=== PATIENT | male | born 1960 | race African-American/Black ===

== ENCOUNTER 2016-07-10 16:21 | Inpatient (IN) | payer OTHER ==
[~2016-07-10] VITALS: Ht 208.3 cm; Wt 132.4 kg
[2016-07-10 16:35] VITALS: BP 128/78
[2016-07-10] MEDS ORDERED: DuoNeb 0.5-3(2.5)mg/3ml neb HHN ONE (17:00)
[2016-07-10 18:21] VITALS: BP 122/76
[2016-07-10 18:29] LABS: BASOPHILS % (AUTO) 1.6 % (0.0-2.0); EOSINOPHILS % (AUTO) 0.1 % (0.0-3.0); LYMPHOCYTES % (AUTO) 8.1 % (20.0-45.0); MEAN CORPUSCULAR HEMOGLOBIN 28.8 PG (27.0-31.0); MEAN CORPUSCULAR HGB CONC 32.4 G/DL (32.0-36.0); MEAN CORPUSCULAR VOLUME 89 FL (80-99); MEAN PLATELET VOLUME 10.4 FL (6.5-10.1); MONOCYTES % (AUTO) 7.8 % (1.0-10.0); NEUTROPHILS % (AUTO) 82.4 % (45.0-75.0); PLATELET COUNT 144 K/UL (150-450); RED BLOOD COUNT 5.52 M/UL (4.70-6.10); RED CELL DISTRIBUTION WIDTH 12.4 % (11.6-14.8); WHITE BLOOD COUNT 14.8 K/UL (4.8-10.8)
[2016-07-10 18:42] LABS: ALBUMIN/GLOBULIN RATIO 0.8 (1.0-2.7); CALCIUM 7.9 mg/dL (8.6-10.2); CREATININE 1.9 mg/dL (0.7-1.2); MAGNESIUM 2.5 mg/dL (1.7-2.5); PHOSPHORUS 1.5 mg/dL (2.5-4.8); POTASSIUM 3.5 mEQ/L (3.4-4.9); TOTAL PROTEIN 7.3 g/dL (6.6-8.7); TROPONIN I < 0.30 ng/mL (<=0.30)
[2016-07-10] MEDS ORDERED: cefTRIAXone 1 GM in NS 55 ML IVPB ONE (18:45)
[2016-07-10] MEDS ORDERED: Azithromycin 500 MG in D5W 275 ML IVPB ONE (18:45)
[2016-07-10 18:53] LABS: CKMB 3.7 ng/mL (< 6.7)
[2016-07-10] MEDS ORDERED: Azithromycin Inj IV ONE (19:07)
[2016-07-10] MEDS: cefTRIAXone 1 GM in D5W 55 ML IVPB ONE ×2 (19:45→20:34)
[2016-07-10] MEDS ORDERED: AMLODIPINE BESY10 MG ORAL (19:50)
[2016-07-10] MEDS ORDERED: Miralax 17gm pkt ORAL PRN (20:45)
[2016-07-10] MEDS ORDERED: DuoNeb 0.5-3(2.5)mg/3ml neb HHN PRN (20:45)
[2016-07-10] MEDS ORDERED: Mylanta II UD 30ml ORAL PRN (20:45)
[2016-07-10] MEDS ORDERED: Promethazine/Codeine 5ml UD ORAL PRN (20:45)
[2016-07-10] MEDS ORDERED: Nitroglycerin Subl 0.4mg tab (Bottle Of 25) SL PRN (20:45)
[2016-07-10 20:47] VITALS: BP 115/74
--- NOTE | 2016-07-10 20:59 | Infectious Diseases Prog Note ---
Assessment/Plan Problems: (1) CAP (community acquired pneumonia) Assessment & Plan: will start zosyn and vancomycin empirically, send influenza screening, blood culture and sputum culture (2) Sepsis Assessment & Plan: due to pneumonia, will start zosyn and vancomycin , send blood culture (3) Asthma Assessment & Plan: continue nebulizers and titrate oxygen to keep O2 sat >90 % (4) Acute respiratory failure Assessment & Plan: due to the above, continue nebulizers, and oxygen , monitor CXR, pulmonary is following (5) Elevated LFTs Assessment & Plan: suspect liver shock, will order hepatitis panel, monitor LFT , avoid hepatotoxic meds Subjective Allergies: Coded Allergies: No Known Allergies (Unverified , 07/10/16) Objective Vital Signs Last 24 Hour Vital Signs Date Time Temp Pulse Resp B/P Pulse Ox O2 Delivery O2 Flow Rate FiO2 07/10/16 18:21 99.4 115 15 122/76 96 Nasal Cannula 2.0 07/10/16 18:02 102.1 07/10/16 17:45 116 22 100 Room Air 21 07/10/16 17:32 115 23 Room Air 21 07/10/16 17:32 115 23 97 Room Air 21 07/10/16 16:35 118 22 Room Air 07/10/16 16:35 99.9 115 22 128/78 95 Room Air 07/10/16 16:26 118 22 128/78 95 Room Air Height (Feet): 6 Height (Inches): 6.00 Weight (Pounds): 300 Laboratory Tests Test 07/10/16 17:50 White Blood Count 14.8 K/UL (4.8-10.8) H Red Blood Count 5.52 M/UL (4.70-6.10) Hemoglobin 15.9 G/DL (14.2-18.0) Hematocrit 49.1 % (42.0-52.0) Mean Corpuscular Volume 89 FL (80-99) Mean Corpuscular Hemoglobin 28.8 PG (27.0-31.0) Mean Corpuscular Hemoglobin Concent 32.4 G/DL (32.0-36.0) Red Cell Distribution Width 12.4 % (11.6-14.8) Platelet Count 144 K/UL (150-450) L Mean Platelet Volume 10.4 FL (6.5-10.1) H Neutrophils (%) (Auto) 82.4 % (45.0-75.0) H Lymphocytes (%) (Auto) 8.1 % (20.0-45.0) L Monocytes (%) (Auto) 7.8 % (1.0-10.0) Eosinophils (%) (Auto) 0.1 % (0.0-3.0) Basophils (%) (Auto) 1.6 % (0.0-2.0) Sodium Level 136 mEQ/L (135-145) Potassium Level 3.5 mEQ/L (3.4-4.9) Chloride Level 94 mEQ/L (98-107) L Carbon Dioxide Level 23 mEQ/L (20-30) Anion Gap 19 (5-15) H Blood Urea Nitrogen 34 mg/dL (7-23) H Creatinine 1.9 mg/dL (0.7-1.2) H Estimat Glomerular Filtration Rate 45.0 mL/min (>60) Glucose Level 145 mg/dL (74-106) H Lactic Acid Level 1.20 mmol/L (0.66-2.22) Calcium Level 7.9 mg/dL (8.6-10.2) L Phosphorus Level 1.5 mg/dL (2.5-4.8) L Magnesium Level 2.5 mg/dL (1.7-2.5) Total Bilirubin 0.8 mg/dL (0.0-1.2) Aspartate Amino Transf (AST/SGOT) 130 U/L (5-40) H Alanine Aminotransferase (ALT/SGPT) 117 U/L (3-41) H Alkaline Phosphatase 54 U/L (40-129) Total Creatine Kinase 1969 U/L (38-174) H Creatine Kinase MB 3.7 ng/mL (< 6.7) Creatine Kinase MB Relative Index 0.1 Troponin I < 0.30 ng/mL (<=0.30) Total Protein 7.3 g/dL (6.6-8.7) Albumin 3.3 g/dL (3.5-5.2) L Globulin 4.0 g/dL Albumin/Globulin Ratio 0.8 (1.0-2.7) L Current Medications Medications (Trade) Dose Ordered Sig/Brad Route PRN Reason Start Time Stop Time Status Last Admin Dose Admin Acetaminophen (Tylenol) 650 mg Q4H PRN ORAL fever 07/10/16 20:45 08/09/16 20:44 UNV Al Hydroxide/Mg Hydroxide (Mylanta II) 30 ml Q6H PRN ORAL dyspepsia 07/10/16 20:45 08/09/16 20:44 UNV Albuterol/ Ipratropium 3 ml 3 ml EVERY 4 HOURS PRN HHN Shortness of Breath 07/10/16 20:45 07/15/16 20:44 UNV Amlodipine Besylate (Norvasc) 10 mg DAILY ORAL 07/11/16 09:00 08/10/16 08:59 UNV Cefepime HCl/ Dextrose (Maxipime/D5W) 50 ml @ 100 mls/hr EVERY 12 HOURS IV 07/10/16 21:00 07/17/16 20:59 UNV Heparin Sodium (Porcine) (Heparin 5000 units/ml) 5,000 units EVERY 12 HOURS SUBQ 07/10/16 21:00 08/09/16 20:59 UNV Nitroglycerin (Ntg) 0.4 mg Q5M PRN SL Prn Chest Pain 07/10/16 20:45 08/09/16 20:44 UNV Ondansetron HCl (Zofran) 4 mg Q6H PRN IVP Nausea & Vomiting 07/10/16 20:45 08/09/16 20:44 UNV Polyethylene Glycol (Miralax) 17 gm DAILYPRN PRN ORAL Constipation 07/10/16 20:45 08/09/16 20:44 UNV Promethazine HCl/ Codeine (Phenergan with Codeine) 5 ml Q4H PRN ORAL For Cough 07/10/16 20:45 08/09/16 20:44 UNV Temazepam (Restoril) 15 mg HSPRN PRN ORAL Insomnia 07/10/16 20:45 07/17/16 20:44 UNV Cammy Garcia M.D. Jul 10, 2016 20:59
[2016-07-10 21:51] VITALS: BP 98/56
[2016-07-10] MEDS: Heparin 5000 units/ml inj SUBQ SCH (23:15)
[2016-07-10] MEDS: Piperacillin/Tazobactam 3.375 GM in D5W 110 ML IVPB SCH (23:16)
[2016-07-11] VITALS: BP 111/70
[2016-07-11] MEDS: Vancomycin 2 GM in D5W 500ml 550 ML IVPB ONE ×2
--- NOTE | 2016-07-11 00:07 | Emergency Room Report ---
History of Present Illness General Chief Complaint: Dyspnea/Respdistress Source: Patient Present Illness HPI Patient is a patient is a 56-year-old male who presented after having increased cough and difficulty breathing. Patient gradual onset of symptoms. Patient prior history of sleep apnea. Patient was noted to have subjective fever and chills. A gradual onset of symptoms or the past 2 days. Patient reported having some chest pain and productive cough. He had not been vomiting or having diarrhea.He reports feeling moderately dehydrated. Allergies: Coded Allergies: No Known Allergies (Unverified , 07/10/16) Patient History Past Medical History: see triage record Reviewed Nursing Documentation: PMH: Agreed, PSxH: Agreed Nursing Documentation-PMH Past Medical History: No History, Except For Hx Cardiac Problems: Yes Hx Hypertension: Yes Hx Asthma: Yes Hx Cancer: No Hx Gastrointestinal Problems: No Hx Neurological Problems: No Review of Systems All Other Systems: negative except mentioned in HPI Physical Exam Vital Signs Date Time Temp Pulse Resp B/P Pulse Ox O2 Delivery O2 Flow Rate FiO2 07/10/16 16:26 118 22 128/78 95 Room Air 07/10/16 16:35 99.9 07/10/16 17:32 21 07/10/16 18:21 2.0 Sp02 EP Interpretation: reviewed, normal General Appearance: normal inspection, alert, GCS 15, moderate distress Head: atraumatic ENT: normal ENT inspection, hearing grossly normal, normal voice Neck: normal inspection, full range of motion, supple, no bony tend Respiratory: normal inspection, no retraction, no wheezing, rhonchi Cardiovascular #1: no edema, tachycardia Gastrointestinal: normal inspection, normal bowel sounds, non tender, soft, no guarding, no hernia Genitourinary: no CVA tenderness Musculoskeletal: normal inspection, back normal, normal range of motion Neurologic: normal inspection, alert, oriented x3, responsive, 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 Differential included but was not limited to anemia, pneumonia, pneumothorax, myocardial infarction, pericardial effusion, congestive heart failure, acidosis. Because of complexity of patient' s case laboratory testing and imaging studies were ordered. A chest x-ray one view interpreted by me showed prominent infiltrate with normal cardiac size. Patient started on IV antibiotics as well as IV fluids and antipyretics. The patient was noted to have elevated CPK on elevated white blood count on laboratory testing. As consistent with the patient's having a pneumonia. Dr. Jamel Vernon was contacted for inpatient management. Laboratory Tests Test 07/10/16 17:50 White Blood Count 14.8 K/UL (4.8-10.8) H Red Blood Count 5.52 M/UL (4.70-6.10) Hemoglobin 15.9 G/DL (14.2-18.0) Hematocrit 49.1 % (42.0-52.0) Mean Corpuscular Volume 89 FL (80-99) Mean Corpuscular Hemoglobin 28.8 PG (27.0-31.0) Mean Corpuscular Hemoglobin Concent 32.4 G/DL (32.0-36.0) Red Cell Distribution Width 12.4 % (11.6-14.8) Platelet Count 144 K/UL (150-450) L Mean Platelet Volume 10.4 FL (6.5-10.1) H Neutrophils (%) (Auto) 82.4 % (45.0-75.0) H Lymphocytes (%) (Auto) 8.1 % (20.0-45.0) L Monocytes (%) (Auto) 7.8 % (1.0-10.0) Eosinophils (%) (Auto) 0.1 % (0.0-3.0) Basophils (%) (Auto) 1.6 % (0.0-2.0) Sodium Level 136 mEQ/L (135-145) Potassium Level 3.5 mEQ/L (3.4-4.9) Chloride Level 94 mEQ/L (98-107) L Carbon Dioxide Level 23 mEQ/L (20-30) Anion Gap 19 (5-15) H Blood Urea Nitrogen 34 mg/dL (7-23) H Creatinine 1.9 mg/dL (0.7-1.2) H Estimate Glomerular Filtration Rate 45.0 mL/min (>60) Glucose Level 145 mg/dL (74-106) H Lactic Acid Level 1.20 mmol/L (0.66-2.22) Calcium Level 7.9 mg/dL (8.6-10.2) L Phosphorus Level 1.5 mg/dL (2.5-4.8) L Magnesium Level 2.5 mg/dL (1.7-2.5) Total Bilirubin 0.8 mg/dL (0.0-1.2) Aspartate Amino Transferase (AST) 130 U/L (5-40) H Alanine Aminotransferase (ALT) 117 U/L (3-41) H Alkaline Phosphatase 54 U/L (40-129) Total Creatine Kinase 1969 U/L (38-174) H Creatine Kinase MB 3.7 ng/mL (< 6.7) Creatine Kinase MB Relative Index 0.1 Troponin I < 0.30 ng/mL (<=0.30) Total Protein 7.3 g/dL (6.6-8.7) Albumin 3.3 g/dL (3.5-5.2) L Globulin 4.0 g/dL Albumin/Globulin Ratio 0.8 (1.0-2.7) L Last Vital Signs Date Time Temp Pulse Resp B/P Pulse Ox O2 Delivery O2 Flow Rate FiO2 07/10/16 21:51 93 20 98/56 97 Room Air 07/10/16 20:57 99.4 2.0 21 Status: unchanged Disposition: ADMITTED INPATIENT Condition: Serious Referrals: [facility],REFERRING (PCP) José Miguel Griffith Jul 11, 2016 00:07
[2016-07-11 04:30] VITALS: BP 115/76
[2016-07-11] MEDS: Piperacillin/Tazobactam 3.375 GM in D5W 110 ML IVPB SCH ×3 (05:58→21:33)
[2016-07-11 08:09] VITALS: BP 124/78
[2016-07-11 08:24] LABS: MEAN CORPUSCULAR VOLUME 88 FL (80-99); MEAN PLATELET VOLUME 11.3 FL (6.5-10.1); PLATELET COUNT 131 K/UL (150-450); RED BLOOD COUNT 5.07 M/UL (4.70-6.10); RED CELL DISTRIBUTION WIDTH 12.3 % (11.6-14.8); WHITE BLOOD COUNT 12.8 K/UL (4.8-10.8)
[2016-07-11 08:37] LABS: CALCIUM 7.7 mg/dL (8.6-10.2); CREATININE 1.8 mg/dL (0.7-1.2); GLOMERULAR FILTRATION RATE 47.9 mL/min (>60); PHOSPHORUS 2.2 mg/dL (2.5-4.8); POTASSIUM 3.6 mEQ/L (3.4-4.9)
[2016-07-11] MEDS: Heparin 5000 units/ml inj SUBQ SCH ×2 (09:00→21:32)
[2016-07-11 09:35] LABS: BAND NEUTROPHILS % (MANUAL) 12 % (0-8); EOSINOPHILS % (MANUAL) 1 % (0-3); LYMPHOCYTES % (MANUAL) 4 % (20-45); NEUTROPHILS % (MANUAL) 77 % (45-75); TOTAL CELLS COUNTED 100
[2016-07-11 09:36] LABS: BASOPHILS % (MANUAL) 0 % (0-2); PLATELET ESTIMATE DECREASED; PLATELET MORPHOLOGY NORMAL
[2016-07-11 11:37] VITALS: BP 125/78
--- NOTE | 2016-07-11 11:39 | Diagnostic Imaging Report ---
Indication: Dyspnea Comparison: None A single view chest radiograph was obtained. Findings: Dense left Infiltrate is present in the left perihilar region. Pneumonia suspected. Please correlate clinically. Followup is also recommended. Left lung base not seen and a second infiltrate may be present in this location. Borderline cardiomegaly is present. Bones are unremarkable. Impression: Suspected pneumonia in the left lung. Followup is recommended
[2016-07-11] MEDS: Vancomycin 1gm/D5W 275ml IVPB SCH ×2 (12:50)
[2016-07-11 14:39] LABS: PATH BLOOD SMEAR/OMC SENT TO PATHOLOGIST
--- NOTE | 2016-07-11 15:50 | Consultation ---
History of Present Illness General Date patient seen: Jul 11, 2016 Chief Complaint: Dyspnea/Respdistress Referring physician: Dr Vernon Reason for Consultation: dyspnea Present Illness HPI 56-year-old male with hx of HTN, ex-smoker, MARIA FERNANDA who presented after having increased cough and difficulty breathing. Patient gradual onset of symptoms for the past 2 days. Pt was so week so he couldn't get out of bed and walk, he blamed all of his symptoms to a bad cold. He was diagnosed to have extensive pneumonia and admitted for further work up. No recent sick contact or travel our of area. Allergies: Coded Allergies: No Known Allergies (Unverified , 07/10/16) Medication History Scheduled Amlodipine Besylate* (Amlodipine Besylate*), 10 MG ORAL DAILY, (Reported) Patient History Healthcare decision maker n/a Resuscitation status Full Code Advanced Directive on File No Past Medical/Surgical History Past Medical/Surgical History: (1) HTN (hypertension) (2) MARIA FERNANDA (obstructive sleep apnea) Review of Systems Constitutional: Reports: malaise, weakness Respiratory: Reports: shortness of breath Physical Exam General Appearance: WD/WN Lines, tubes and drains: peripheral, central line HEENT: normocephalic, atraumatic Neck: non-tender, normal alignment Respiratory/Chest: chest wall non-tender, lungs clear Breasts: no masses Cardiovascular/Chest: normal peripheral pulses Abdomen: normal bowel sounds, non tender Genitourinary/Rectal: normal genital exam Extremities: normal range of motion Last 24 Hour Vital Signs Date Time Temp Pulse Resp B/P Pulse Ox O2 Delivery O2 Flow Rate FiO2 07/11/16 12:00 95 07/11/16 11:37 96.8 94 20 125/78 98 Nasal Cannula 2.0 07/11/16 09:03 102 124/78 07/11/16 08:09 97.1 102 20 124/78 95 Nasal Cannula 2.0 07/11/16 08:06 2.0 07/11/16 08:00 100 07/11/16 05:00 98.0 07/11/16 04:30 100.0 100 20 115/76 94 Bi-pap 07/11/16 04:24 97 2.0 28 07/11/16 03:48 101 07/11/16 00:40 90 18 98 Facial 40 07/11/16 00:04 94 07/11/16 00:00 98.0 91 20 111/70 98 Bi-pap 07/10/16 21:51 93 20 98/56 97 Room Air 07/10/16 20:57 99.4 93 17 115/74 96 Nasal Cannula 2.0 21 07/10/16 20:47 99.4 93 17 115/74 96 Nasal Cannula 2.0 21 07/10/16 18:21 99.4 115 15 122/76 96 Nasal Cannula 2.0 07/10/16 18:02 102.1 07/10/16 17:45 116 22 100 Room Air 21 07/10/16 17:32 115 23 Room Air 21 07/10/16 17:32 115 23 97 Room Air 21 07/10/16 16:35 118 22 Room Air 07/10/16 16:35 99.9 115 22 128/78 95 Room Air 07/10/16 16:26 118 22 128/78 95 Room Air Intake and Output 07/10/16 07/11/16 19:00 07:00 Intake Total 817.5 ml Balance 817.5 ml Intake Oral 80 ml IV Total 737.5 ml # Voids 1 # Bowel Movements 1 Laboratory Tests Test 07/10/16 17:50 07/11/16 07:10 White Blood Count 14.8 K/UL (4.8-10.8) H 12.8 K/UL (4.8-10.8) H Red Blood Count 5.52 M/UL (4.70-6.10) 5.07 M/UL (4.70-6.10) Hemoglobin 15.9 G/DL (14.2-18.0) 14.7 G/DL (14.2-18.0) Hematocrit 49.1 % (42.0-52.0) 44.6 % (42.0-52.0) Mean Corpuscular Volume 89 FL (80-99) 88 FL (80-99) Mean Corpuscular Hemoglobin 28.8 PG (27.0-31.0) 29.0 PG (27.0-31.0) Mean Corpuscular Hemoglobin Concent 32.4 G/DL (32.0-36.0) 33.0 G/DL (32.0-36.0) Red Cell Distribution Width 12.4 % (11.6-14.8) 12.3 % (11.6-14.8) Platelet Count 144 K/UL (150-450) L 131 K/UL (150-450) L Mean Platelet Volume 10.4 FL (6.5-10.1) H 11.3 FL (6.5-10.1) H Neutrophils (%) (Auto) 82.4 % (45.0-75.0) H % (45.0-75.0) Lymphocytes (%) (Auto) 8.1 % (20.0-45.0) L % (20.0-45.0) Monocytes (%) (Auto) 7.8 % (1.0-10.0) % (1.0-10.0) Eosinophils (%) (Auto) 0.1 % (0.0-3.0) % (0.0-3.0) Basophils (%) (Auto) 1.6 % (0.0-2.0) % (0.0-2.0) Sodium Level 136 mEQ/L (135-145) 139 mEQ/L (135-145) Potassium Level 3.5 mEQ/L (3.4-4.9) 3.6 mEQ/L (3.4-4.9) Chloride Level 94 mEQ/L (98-107) L 97 mEQ/L (98-107) L Carbon Dioxide Level 23 mEQ/L (20-30) 27 mEQ/L (20-30) Anion Gap 19 (5-15) H 15 (5-15) Blood Urea Nitrogen 34 mg/dL (7-23) H 35 mg/dL (7-23) H Creatinine 1.9 mg/dL (0.7-1.2) H 1.8 mg/dL (0.7-1.2) H Estimat Glomerular Filtration Rate 45.0 mL/min (>60) 47.9 mL/min (>60) Glucose Level 145 mg/dL (74-106) H 120 mg/dL (74-106) H Lactic Acid Level 1.20 mmol/L (0.66-2.22) Calcium Level 7.9 mg/dL (8.6-10.2) L 7.7 mg/dL (8.6-10.2) L Phosphorus Level 1.5 mg/dL (2.5-4.8) L 2.2 mg/dL (2.5-4.8) L Magnesium Level 2.5 mg/dL (1.7-2.5) Total Bilirubin 0.8 mg/dL (0.0-1.2) Aspartate Amino Transf (AST/SGOT) 130 U/L (5-40) H Alanine Aminotransferase (ALT/SGPT) 117 U/L (3-41) H Alkaline Phosphatase 54 U/L (40-129) Total Creatine Kinase 1969 U/L (38-174) H Creatine Kinase MB 3.7 ng/mL (< 6.7) Creatine Kinase MB Relative Index 0.1 Troponin I < 0.30 ng/mL (<=0.30) Total Protein 7.3 g/dL (6.6-8.7) Albumin 3.3 g/dL (3.5-5.2) L 3.0 g/dL (3.5-5.2) L Globulin 4.0 g/dL Albumin/Globulin Ratio 0.8 (1.0-2.7) L Differential Total Cells Counted 100 Neutrophils % (Manual) 77 % (45-75) H Lymphocytes % (Manual) 4 % (20-45) L Monocytes % (Manual) 6 % (1-10) Eosinophils % (Manual) 1 % (0-3) Basophils % (Manual) 0 % (0-2) Band Neutrophils 12 % (0-8) H Platelet Estimate Decreased L Platelet Morphology Normal Red Blood Cell Morphology Normal Hepatitis A Antibody Total Pending Hepatitis B Surface Antigen Pending Hepatitis B Core IgM Antibody Pending Hepatitis C Antibody Pending Microbiology Date/Time Source Procedure Growth Status 07/11/16 09:30 Nasopharynx Influenza Types A,B Antigen (KYLE) - Final Complete Height (Feet): 6 Height (Inches): 10.00 Weight (Pounds): 292 Medications Current Medications Medications (Trade) Dose Ordered Sig/Brad Route PRN Reason Start Time Stop Time Status Last Admin Dose Admin Acetaminophen (Tylenol) 650 mg Q4H PRN ORAL fever 07/10/16 20:45 08/09/16 20:44 Al Hydroxide/Mg Hydroxide (Mylanta II) 30 ml Q6H PRN ORAL dyspepsia 07/10/16 20:45 08/09/16 20:44 07/11/16 01:04 Albuterol/ Ipratropium (DuoNeb 0.5-3(2.5)mg/3ml) 3 ml EVERY 4 HOURS PRN HHN Shortness of Breath 07/10/16 20:45 07/15/16 20:44 Amlodipine Besylate (Norvasc) 10 mg DAILY ORAL 07/11/16 09:00 08/10/16 08:59 07/11/16 09:03 Heparin Sodium (Porcine) (Heparin 5000 units/ml) 5,000 units EVERY 12 HOURS SUBQ 07/10/16 22:00 08/09/16 21:59 07/10/16 23:15 Nitroglycerin (Ntg) 0.4 mg Q5M PRN SL Prn Chest Pain 07/10/16 20:45 08/09/16 20:44 Ondansetron HCl (Zofran) 4 mg Q6H PRN IVP Nausea & Vomiting 07/10/16 20:45 08/09/16 20:44 Piperacillin Sod/ Tazobactam Sod 3.375 gm/Dextrose 110 ml @ 27.5 mls/hr EVERY 8 HOURS IVPB 07/10/16 22:30 07/15/16 22:29 07/11/16 14:36 Polyethylene Glycol (Miralax) 17 gm DAILYPRN PRN ORAL Constipation 07/10/16 20:45 08/09/16 20:44 Promethazine HCl/ Codeine 5 ml 5 ml Q4H PRN ORAL For Cough 07/10/16 20:45 08/09/16 20:44 Temazepam (Restoril) 15 mg HSPRN PRN ORAL Insomnia 07/10/16 20:45 07/17/16 20:44 Vancomycin HCl (Vanco rx to dose) 1 ea DAILY PRN MISC . 07/10/16 21:15 08/09/16 21:14 Vancomycin HCl/ Dextrose (Vancomycin/D5W) 275 ml @ 183.708 mls/hr Q12HR@0000,1200 IVPB 07/11/16 12:00 07/16/16 11:59 07/11/16 12:50 Assessment/Plan Problem List: (1) Acute respiratory failure ICD Codes: J96.00 - Acute respiratory failure, unspecified whether with hypoxia or hypercapnia SNOMED: 58279245 (2) Pneumonia ICD Codes: J18.9 - Pneumonia, unspecified organism SNOMED: 407000132 (3) Sepsis ICD Codes: A41.9 - Sepsis, unspecified organism SNOMED: 63112318 (4) ATN (acute tubular necrosis) ICD Codes: N17.0 - Acute kidney failure with tubular necrosis SNOMED: 05014731 (5) Elevated LFTs ICD Codes: R94.5 - Abnormal results of liver function studies SNOMED: 435354864 Assessment/Plan IV antibiotics respiratory treatment chest pt ct of chest, fairly extensive infiltrate. renal work/up bipap prn and at night BRINA BRAGG Jul 11, 2016 15:50
[2016-07-11 16:00] VITALS: BP 127/77
--- NOTE | 2016-07-11 16:54 | Infectious Diseases Prog Note ---
Assessment/Plan Problems: (1) CAP (community acquired pneumonia) Assessment & Plan: continue zosyn and vancomycin empirically for now, influenza screening is negative , blood culture and sputum culture are pending (2) Sepsis Assessment & Plan: due to pneumonia, continue zosyn and vancomycin , await blood culture (3) Asthma Assessment & Plan: continue nebulizers and titrate oxygen to keep O2 sat >90 % (4) Acute respiratory failure Assessment & Plan: due to the above, continue nebulizers, and oxygen , monitor CXR, pulmonary is following (5) Elevated LFTs Assessment & Plan: suspect liver shock, hepatitis panel is pending , monitor LFT, avoid hepatotoxic meds Subjective Constitutional: Reports: fatigue Respiratory: Reports: dry cough Allergies: Coded Allergies: No Known Allergies (Unverified , 07/10/16) All Systems: reviewed and negative except above Subjective feels better, has less cough and SOB, no fever or chills. Objective Vital Signs Last 24 Hour Vital Signs Date Time Temp Pulse Resp B/P Pulse Ox O2 Delivery O2 Flow Rate FiO2 07/11/16 16:00 98.2 98 22 127/77 94 Nasal Cannula 2.0 07/11/16 12:00 95 07/11/16 11:37 96.8 94 20 125/78 98 Nasal Cannula 2.0 07/11/16 09:03 102 124/78 07/11/16 08:09 97.1 102 20 124/78 95 Nasal Cannula 2.0 07/11/16 08:06 2.0 07/11/16 08:00 100 07/11/16 05:00 98.0 07/11/16 04:30 100.0 100 20 115/76 94 Bi-pap 07/11/16 04:24 97 2.0 28 07/11/16 03:48 101 07/11/16 00:40 90 18 98 Facial 40 07/11/16 00:04 94 07/11/16 00:00 98.0 91 20 111/70 98 Bi-pap 07/10/16 21:51 93 20 98/56 97 Room Air 07/10/16 20:57 99.4 93 17 115/74 96 Nasal Cannula 2.0 21 07/10/16 20:47 99.4 93 17 115/74 96 Nasal Cannula 2.0 21 07/10/16 18:21 99.4 115 15 122/76 96 Nasal Cannula 2.0 07/10/16 18:02 102.1 07/10/16 17:45 116 22 100 Room Air 21 07/10/16 17:32 115 23 Room Air 21 07/10/16 17:32 115 23 97 Room Air 21 Height (Feet): 6 Height (Inches): 10.00 Weight (Pounds): 292 General Appearance: WD/WN, no acute distress HEENT: normocephalic, atraumatic, anicteric, mucous membranes moist Respiratory/Chest: chest wall non-tender, normal breath sounds, no respiratory distress, no accessory muscle use, decreased breath sounds, crackles/rales Cardiovascular: normal peripheral pulses, normal rate, regular rhythm, no gallop/murmur Abdomen: normal bowel sounds, soft, non tender, no organomegaly, non distended , no mass Extremities: no cyanosis, no clubbing Skin: no rash, no lesions, no ulcers Microbiology Date/Time Source Procedure Growth Status 07/11/16 09:30 Nasopharynx Influenza Types A,B Antigen (KLYE) - Final Complete Laboratory Tests Test 07/10/16 17:50 07/11/16 07:10 White Blood Count 14.8 K/UL (4.8-10.8) H 12.8 K/UL (4.8-10.8) H Red Blood Count 5.52 M/UL (4.70-6.10) 5.07 M/UL (4.70-6.10) Hemoglobin 15.9 G/DL (14.2-18.0) 14.7 G/DL (14.2-18.0) Hematocrit 49.1 % (42.0-52.0) 44.6 % (42.0-52.0) Mean Corpuscular Volume 89 FL (80-99) 88 FL (80-99) Mean Corpuscular Hemoglobin 28.8 PG (27.0-31.0) 29.0 PG (27.0-31.0) Mean Corpuscular Hemoglobin Concent 32.4 G/DL (32.0-36.0) 33.0 G/DL (32.0-36.0) Red Cell Distribution Width 12.4 % (11.6-14.8) 12.3 % (11.6-14.8) Platelet Count 144 K/UL (150-450) L 131 K/UL (150-450) L Mean Platelet Volume 10.4 FL (6.5-10.1) H 11.3 FL (6.5-10.1) H Neutrophils (%) (Auto) 82.4 % (45.0-75.0) H % (45.0-75.0) Lymphocytes (%) (Auto) 8.1 % (20.0-45.0) L % (20.0-45.0) Monocytes (%) (Auto) 7.8 % (1.0-10.0) % (1.0-10.0) Eosinophils (%) (Auto) 0.1 % (0.0-3.0) % (0.0-3.0) Basophils (%) (Auto) 1.6 % (0.0-2.0) % (0.0-2.0) Sodium Level 136 mEQ/L (135-145) 139 mEQ/L (135-145) Potassium Level 3.5 mEQ/L (3.4-4.9) 3.6 mEQ/L (3.4-4.9) Chloride Level 94 mEQ/L (98-107) L 97 mEQ/L (98-107) L Carbon Dioxide Level 23 mEQ/L (20-30) 27 mEQ/L (20-30) Anion Gap 19 (5-15) H 15 (5-15) Blood Urea Nitrogen 34 mg/dL (7-23) H 35 mg/dL (7-23) H Creatinine 1.9 mg/dL (0.7-1.2) H 1.8 mg/dL (0.7-1.2) H Estimat Glomerular Filtration Rate 45.0 mL/min (>60) 47.9 mL/min (>60) Glucose Level 145 mg/dL (74-106) H 120 mg/dL (74-106) H Lactic Acid Level 1.20 mmol/L (0.66-2.22) Calcium Level 7.9 mg/dL (8.6-10.2) L 7.7 mg/dL (8.6-10.2) L Phosphorus Level 1.5 mg/dL (2.5-4.8) L 2.2 mg/dL (2.5-4.8) L Magnesium Level 2.5 mg/dL (1.7-2.5) Total Bilirubin 0.8 mg/dL (0.0-1.2) Aspartate Amino Transf (AST/SGOT) 130 U/L (5-40) H Alanine Aminotransferase (ALT/SGPT) 117 U/L (3-41) H Alkaline Phosphatase 54 U/L (40-129) Total Creatine Kinase 1969 U/L (38-174) H Creatine Kinase MB 3.7 ng/mL (< 6.7) Creatine Kinase MB Relative Index 0.1 Troponin I < 0.30 ng/mL (<=0.30) Total Protein 7.3 g/dL (6.6-8.7) Albumin 3.3 g/dL (3.5-5.2) L 3.0 g/dL (3.5-5.2) L Globulin 4.0 g/dL Albumin/Globulin Ratio 0.8 (1.0-2.7) L Differential Total Cells Counted 100 Neutrophils % (Manual) 77 % (45-75) H Lymphocytes % (Manual) 4 % (20-45) L Monocytes % (Manual) 6 % (1-10) Eosinophils % (Manual) 1 % (0-3) Basophils % (Manual) 0 % (0-2) Band Neutrophils 12 % (0-8) H Platelet Estimate Decreased L Platelet Morphology Normal Red Blood Cell Morphology Normal Hepatitis A Antibody Total Pending Hepatitis B Surface Antigen Pending Hepatitis B Core IgM Antibody Pending Hepatitis C Antibody Pending Current Medications Medications (Trade) Dose Ordered Sig/Brad Route PRN Reason Start Time Stop Time Status Last Admin Dose Admin Acetaminophen (Tylenol) 650 mg Q4H PRN ORAL fever 07/10/16 20:45 08/09/16 20:44 Al Hydroxide/Mg Hydroxide (Mylanta II) 30 ml Q6H PRN ORAL dyspepsia 07/10/16 20:45 08/09/16 20:44 07/11/16 01:04 Albuterol/ Ipratropium (DuoNeb 0.5-3(2.5)mg/3ml) 3 ml EVERY 4 HOURS PRN HHN Shortness of Breath 07/10/16 20:45 07/15/16 20:44 Amlodipine Besylate (Norvasc) 10 mg DAILY ORAL 07/11/16 09:00 08/10/16 08:59 07/11/16 09:03 Heparin Sodium (Porcine) (Heparin 5000 units/ml) 5,000 units EVERY 12 HOURS SUBQ 07/10/16 22:00 08/09/16 21:59 07/10/16 23:15 Nitroglycerin (Ntg) 0.4 mg Q5M PRN SL Prn Chest Pain 07/10/16 20:45 08/09/16 20:44 Ondansetron HCl (Zofran) 4 mg Q6H PRN IVP Nausea & Vomiting 07/10/16 20:45 08/09/16 20:44 Piperacillin Sod/ Tazobactam Sod 3.375 gm/Dextrose 110 ml @ 27.5 mls/hr EVERY 8 HOURS IVPB 07/10/16 22:30 07/15/16 22:29 07/11/16 14:36 Polyethylene Glycol (Miralax) 17 gm DAILYPRN PRN ORAL Constipation 07/10/16 20:45 08/09/16 20:44 Promethazine HCl/ Codeine 5 ml 5 ml Q4H PRN ORAL For Cough 07/10/16 20:45 08/09/16 20:44 Temazepam (Restoril) 15 mg HSPRN PRN ORAL Insomnia 07/10/16 20:45 07/17/16 20:44 Vancomycin HCl (Vanco rx to dose) 1 ea DAILY PRN MISC . 07/10/16 21:15 08/09/16 21:14 Vancomycin HCl/ Dextrose (Vancomycin/D5W) 275 ml @ 183.708 mls/hr Q12HR@0000,1200 IVPB 07/11/16 12:00 07/16/16 11:59 07/11/16 12:50 Cammy Garcia M.D. Jul 11, 2016 16:54
--- NOTE | 2016-07-11 18:47 | History and Physical Report ---
DATE OF ADMISSION: 07/10/2016 HISTORY OF PRESENT ILLNESS: The patient is admitted for pneumonia and sleep apnea. The patient complains of shortness of breath for one week and cough for one month. The patient also has sleep apnea history. Does have leg swelling. Denies orthopnea. Denies chills. Denies wheezing. Denies headaches. Denies chest pain. The patient has fever at home. PAST MEDICAL HISTORY: Hypertension and sleep apnea. PAST SURGICAL HISTORY: Right femur fracture surgery. SOCIAL HISTORY: He smokes. No history of drug or alcohol abuse. MEDICATIONS: He takes blood pressure medication, Norvasc 10 mg daily. . ALLERGIES: No known allergies. REVIEW OF SYSTEMS: HEENT: Denies headache. Respiratory: Reports shortness of breath for one week. Denies wheezing. Has cough for one week, dry. No orthopnea. No chills. Cardiovascular: Denies chest pain. Gastrointestinal: Denies heartburn. Denies nausea, vomiting, or diarrhea. Denies abdominal pain. Extremities: Reports worsening leg edema. Central Nervous System: Denies change in vision or speech pattern. PHYSICAL EXAMINATION: VITAL SIGNS: Temperature 97.1 degrees, pulse 102, and blood pressure 124/78. HEENT: PERRLA. NECK: Supple. No lymphadenopathy. CHEST: Clear to auscultation. CARDIOVASCULAR: Regular rate and rhythm. No murmur. GASTROINTESTINAL: Soft, distended, and nontender. No organomegaly. Positive bowel sounds. EXTREMITIES: 1+ edema of the lower extremities. He is able to move all four extremities. Reflexes equal on both sides. LABORATORY DATA: WBC of 14.8, hemoglobin of 15.9, and platelets 144,000. Sodium 136, potassium 3.5, BUN 34, creatinine 1.9, and glucose 145. AST 130 and ALT 117. He had left lung pneumonia on the x-ray and rhabdomyolysis. ASSESSMENT AND PLAN: 1. Rhabdomyolysis. 2. Pneumonia. 3. Sleep apnea. 4. Shortness of breath. 5. Elevated LFTs. 6. Elevated white blood cells. I have asked Dr. Villafuerte, , Dr. Garcia, and Dr. Carlin see the patient for the above-mentioned diagnoses and treatment. Jamel Vernon M.D. DR: MONALISA JOB#: [id number] CC:
[2016-07-11 20:00] VITALS: BP 129/73
--- NOTE | 2016-07-11 22:07 | Consultation ---
DATE OF CONSULTATION: 07/11/2016 INFECTIOUS DISEASE CONSULTATION CONSULTING PHYSICIAN: Cammy Garcia M.D. REQUESTING PHYSICIAN: Jamel Vernon M.D. REASON FOR CONSULTATION: Community-acquired pneumonia with sepsis. Recommendation for antibiotics therapy. HISTORY OF PRESENT ILLNESS: The patient is a 56-year-old male with history of hypertension and asthma, presented to [facility] with cough for three weeks and worsening shortness of breath. The patient had a history of sleep apnea in the past, but his shortness of breath seems to be different at this time. 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 The patient developed fever and chills over the last 48 hours. He had some pleuritic chest pain and productive cough, so he presented to [facility] for evaluation. Chest x-ray showed evidence of left side pneumonia. The patient was started on IV antibiotics and I was consulted by the primary provider for antibiotics treatment and management. The patient denied any vaccination this year or last year. PAST MEDICAL HISTORY: Significant for coronary artery disease, hypertension and asthma. PAST SURGICAL HISTORY: Negative. ALLERGIES: He has no known drug allergy. MEDICATIONS: He is on cefepime and he received ceftriaxone and Zithromax in the emergency room. For the rest of medications please refer to the MAR. FAMILY HISTORY: Noncontributory. 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 Denied using any drugs, tobacco, or alcohol. REVIEW OF SYSTEMS: A 14-point of system reviewed were all negative apart from the one I mentioned above in my History and Physical. PHYSICAL EXAMINATION: VITAL SIGNS: Temperature 100 degrees, pulse 100, respirations 20, blood pressure 115/76, and pulse oximetry 94% on BiPAP. GENERAL: The patient is a middle-aged male, obese, lying in bed, coughing, awake, alert, not in distress. HEENT: Normocephalic and atraumatic. Pupils are reactive to light equally. Moist oral mucosa. No exudate. NECK: Supple. No lymphadenopathy. CARDIOVASCULAR: Regular rate and rhythm. No murmur. LUNGS: He had left-sided crackles with diminished breathing sounds on the left lung ramirez. No wheezing or rhonchi. Normal breathing efforts. ABDOMEN: Soft, nontender, and nondistended. Positive bowel sounds. No hepatosplenomegaly. No ascites. EXTREMITIES: No edema or cyanosis. LABORATORY DATA: White count 14.8, hemoglobin 15.9, hematocrit 49.1, and platelet count 144,000. BUN of 34 and creatinine of 1.9. AST of 138 and ALT of 117. Albumin is 3.3. MICROBIOLOGY: Influenza screening for A and B, both are negative. IMAGING: Chest x-ray showed pneumonia in the left lung. ASSESSMENT AND PLAN: 1. Community-acquired pneumonia. The patient will be started empirically on Zosyn and vancomycin. We will stop cefepime for now to avoid liver toxicity. We will send blood culture and sputum culture. Influenza screening already negative. 2. Sepsis due to pneumonia. We will start Zosyn and vancomycin and send blood culture. 3. Asthma. Continue nebulizer and oxygen. Titrate to keep oxygen saturation more than 90. 4. Acute respiratory failure due to the above. Continue nebulizer treatment and oxygen. Monitor chest x-ray. Pulmonary is following. 5. Elevated liver function test due to suspect liver shock from sepsis. Hepatitis panel has been ordered. Monitor liver function test. Avoid hepatotoxic medications. Cammy Garcia M.D. DR: ANAMIKA JOB#: [id number] CC:
[2016-07-12] VITALS: BP 108/74
--- NOTE | 2016-07-12 01:07 | Consultation ---
DATE OF CONSULTATION: 07/11/2016 GASTROENTEROLOGY CONSULTATION CONSULTING PHYSICIAN: Balbina Carlin M.D. CHIEF COMPLAINT: I was asked to see this patient by Dr. Jamel Vernon for evaluation of abnormal liver tests. HISTORY OF PRESENT ILLNESS: The patient is a pleasant 56-year-old man, who was in his usual state of health until three days prior to admission when history of worsening shortness of breath and difficulty breathing. The patient came to the hospital and he was admitted. He denies any prior history of liver disease or any previous abnormal liver tests. He denies any lower or upper quadrant or postprandial abdominal pain. His admission liver tests showed elevated transaminases and therefore this consultation was requested. He was diagnosed to have extensive pneumonia. PAST MEDICAL HISTORY: History of hypertension and history of sleep apnea. SOCIAL HISTORY: The patient lives in [facility], and does not drink or smoke. FAMILY HISTORY: Noncontributory. REVIEW OF SYSTEMS: Otherwise negative. PHYSICAL EXAMINATION: GENERAL: This is a pleasant man, seen with family at bedside. HEENT: Normocephalic and atraumatic. Sclerae are anicteric. Oropharynx clear. NECK: Supple. CHEST: Coarse breath sounds. CARDIOVASCULAR: Revealed regular rate. ABDOMEN: Soft and obese. Good bowel sounds. EXTREMITIES: Revealed no edema. LABORATORY DATA: Laboratory data were noted. ASSESSMENT: This patient presents with abnormal liver tests of unclear etiology. The differential diagnosis would include chronic hepatitis B and C. Fatty liver disease would be rare consideration. The patient has also had elevated CPK, rhabdomyolysis and therefore this will be checked. . RECOMMENDATIONS: 1. Check and urinalysis. 2. Abdominal ultrasound. 3. Antibiotics. 4. Further recommendations to follow. Thank you for asking me to participate in care of this patient. Balbina Carlin M.D. DR: PEBBLES JOB#: [id number] CC:
--- NOTE | 2016-07-12 01:48 | Consultation ---
DATE OF CONSULTATION: 07/11/2016 HEMATOLOGY/ONCOLOGY CONSULTATION: REQUESTING PHYSICIAN: Jamel Vernon M.D. REASON FOR CONSULTATION: Evaluation of thrombocytopenia and anemia. IDENTIFYING DATA: Dear Dr. Jamel Vernon, The patient is a pleasant 56-year-old male with a past medical history significant for hypertension and asthma, at this time presents to [facility] with increased cough as well as shortness of breath. The patient also has sleep apnea. He otherwise denied any subjective symptoms, fevers, or chills. Does not have any hepatitis history. The patient was anemic. He does not drink. History of cirrhosis. In addition, he has leukocytosis. Hematology service was consulted for further evaluation and treatment. Currently, he is started on Zosyn and DVT prophylaxis with heparin. Imaging reviewed and a chest x-ray significant for dense left infiltrates present in the perihilar region with pneumonia suspected. PAST MEDICAL HISTORY: Significant for diabetes mellitus, elevated LFTs, hypertension, and history of cardiac disease. PAST SURGICAL HISTORY: None noted. ALLERGIES: No known drug allergies. MEDICATIONS: Reviewed and reconciled. FAMILY HISTORY: Noncontributory. REVIEW OF SYSTEMS: Constitutional: No fever, chills, or night sweats. Skin: No rashes, lumps, or itching. HEENT: No headache, hearing, or vision changes. Pulmonary: No cough, sputum, or shortness of breath. Cardiovascular: No chest pain, tightness, or palpitations. Gastrointestinal: No nausea, vomiting, or diarrhea. Genitourinary: No dysuria, frequency, or urgency. Musculoskeletal: No joint swelling, muscle pain, or trauma. Neurological: No dizziness, fainting or seizures. PHYSICAL EXAMINATION: GENERAL: The patient is in no acute distress. VITAL SIGNS: Temperature is 96.8 degrees Fahrenheit, pulse 94, respiratory rate 12, blood pressure 125/78, and pulse oximetry 98% on 2 L nasal cannula. PULMONARY: Decreased breath sounds. CARDIOVASCULAR: Regular rhythm. No S3 or S4. GASTROINTESTINAL: Abdomen is soft, nontender, and nondistended. EXTREMITIES: Edema 1+. REFERRING PHYSICIAN: WBC 12.8, hemoglobin 15.7, hematocrit 45, platelet count 121,000. BUN 35 and creatinine 1.8. Serology reviewed. Hepatitis panel pending. IMAGING: Chest x-ray shows left perihilar infiltrate. ASSESSMENT: 1. Thrombocytopenia with underlying sepsis and pneumonia. 2. Leukocytosis. 3. History of pneumonia. The patient is on IV fluids as well as antibiotics and currently improving. 4. Pneumonia in perihilar region. Has been seen by ID service. 5. Acute respiratory failure. 6. Elevated LFTs. Hepatitis panel ordered. RECOMMENDATIONS: 1. Monitor chemistry. 2. Maintain hemoglobin above 7 and platelet count above 10,000. 3. DVT prophylaxis with, heparin. 4. GI prophylaxis as needed. 5. Continue antibiotics as per ID service. 6. Imaging reviewed. 7. Hepatitis panel and HIV ordered. 8. Ultrasound of the abdomen ordered. 9. Followup with Hematology clinic. 10. Discussed with staff. Thank you, Dr. Jamel Vernon, for this kind referral. Please do not hesitate to contact me with any further questions. River Johns M.D. DR: PANTERA JOB#: [id number] CC:
[2016-07-12] MEDS: Vancomycin 1gm/D5W 275ml IVPB SCH ×6 (02:21→20:46)
[2016-07-12 04:00] VITALS: BP 133/76
[2016-07-12 05:13] LABS: HEPATITIS A ANTIBODY TOTAL Negative (Negative)
[2016-07-12] MEDS: Piperacillin/Tazobactam 3.375 GM in D5W 110 ML IVPB SCH ×3 (06:03→22:50)
[2016-07-12 08:15] VITALS: BP 127/77
[2016-07-12] MEDS: Heparin 5000 units/ml inj SUBQ SCH ×2 (10:23→20:48)
--- NOTE | 2016-07-12 10:36 | General Progress Note ---
Assessment/Plan Problem List: (1) Diabetes ICD Codes: E11.9 - Type 2 diabetes mellitus without complications SNOMED: 73162093 (2) Acute respiratory failure ICD Codes: J96.00 - Acute respiratory failure, unspecified whether with hypoxia or hypercapnia SNOMED: 34821606 (3) Elevated LFTs ICD Codes: R94.5 - Abnormal results of liver function studies SNOMED: 007324358 (4) Pneumonia ICD Codes: J18.9 - Pneumonia, unspecified organism SNOMED: 184785291 (5) HTN (hypertension) ICD Codes: I10 - Essential (primary) hypertension SNOMED: 92765447 (6) MARIA FERNANDA (obstructive sleep apnea) ICD Codes: G47.33 - Obstructive sleep apnea (adult) (pediatric) SNOMED: 34083813 (7) CAP (community acquired pneumonia) ICD Codes: J18.9 - Pneumonia, unspecified organism SNOMED: 434848065 Status: unchanged Assessment/Plan pna resp insuff unstable for transfer Subjective Respiratory: Reports: shortness of breath Allergies: Coded Allergies: No Known Allergies (Unverified , 07/10/16) Objective Last 24 Hour Vital Signs Date Time Temp Pulse Resp B/P Pulse Ox O2 Delivery O2 Flow Rate FiO2 07/12/16 10:22 88 127/77 07/12/16 09:40 88 16 Nasal Cannula 2.0 28 07/12/16 08:15 96.1 89 20 127/77 95 Nasal Cannula 2.0 07/12/16 05:36 85 18 96 2.0 07/12/16 04:00 92 07/12/16 04:00 97.9 91 20 133/76 97 Bi-pap 07/12/16 03:30 86 16 97 Facial 40 07/12/16 01:20 89 16 96 Facial 40 07/12/16 00:00 99.0 89 20 108/74 97 Bi-pap 07/12/16 00:00 99 07/11/16 23:55 87 16 99 Facial 40 07/11/16 20:00 99.3 97 20 129/73 96 Nasal Cannula 2.0 07/11/16 20:00 100 07/11/16 19:00 84 16 Nasal Cannula 2.0 28 07/11/16 16:00 98.2 98 22 127/77 94 Nasal Cannula 2.0 07/11/16 12:00 95 07/11/16 11:37 96.8 94 20 125/78 98 Nasal Cannula 2.0 Intake and Output 07/11/16 07/12/16 19:00 07:00 Intake Total 967.4 ml 925.0 ml Output Total 1550 ml Balance 967.4 ml -625.0 ml Intake Oral 490 ml 540 ml IV Total 477.4 ml 385.0 ml Output Urine Total 1550 ml # Voids 1 # Bowel Movements 1 Height (Feet): 6 Height (Inches): 10.00 Weight (Pounds): 292 Cardiovascular: normal rate Respiratory/Chest: rhonchi - bilaterally Abdomen: soft Jamel Vernon MD Jul 12, 2016 10:36
[2016-07-12 11:31] VITALS: BP 123/93
--- NOTE | 2016-07-12 15:50 | Pulmonology Progress Note ---
Assessment/Plan Problems: (1) Acute respiratory failure (2) Pneumonia (3) Sepsis (4) ATN (acute tubular necrosis) (5) Elevated LFTs Assessment/Plan improving sputum negative ct chest bipap prn check wbc Subjective ROS Limited/Unobtainable: No Interval Events: improving, no sputum yet Constitutional: Reports: no symptoms Allergies: Coded Allergies: No Known Allergies (Unverified , 07/10/16) Objective Last 24 Hour Vital Signs Date Time Temp Pulse Resp B/P Pulse Ox O2 Delivery O2 Flow Rate FiO2 07/12/16 11:31 96.3 93 20 123/93 96 Nasal Cannula 2.0 07/12/16 10:22 88 127/77 07/12/16 09:40 88 16 Nasal Cannula 2.0 28 07/12/16 08:15 96.1 89 20 127/77 95 Nasal Cannula 2.0 07/12/16 08:00 91 07/12/16 05:36 85 18 96 2.0 07/12/16 04:00 92 07/12/16 04:00 97.9 91 20 133/76 97 Bi-pap 07/12/16 03:30 86 16 97 Facial 40 07/12/16 01:20 89 16 96 Facial 40 07/12/16 00:00 99.0 89 20 108/74 97 Bi-pap 07/12/16 00:00 99 07/11/16 23:55 87 16 99 Facial 40 07/11/16 20:00 99.3 97 20 129/73 96 Nasal Cannula 2.0 07/11/16 20:00 100 07/11/16 19:00 84 16 Nasal Cannula 2.0 28 07/11/16 16:00 98.2 98 22 127/77 94 Nasal Cannula 2.0 Intake and Output 07/11/16 07/12/16 19:00 07:00 Intake Total 967.4 ml 925.0 ml Output Total 1550 ml Balance 967.4 ml -625.0 ml Intake Oral 490 ml 540 ml IV Total 477.4 ml 385.0 ml Output Urine Total 1550 ml # Voids 1 # Bowel Movements 1 General Appearance: WD/WN HEENT: normocephalic, mucous membranes moist Respiratory/Chest: chest wall non-tender, lungs clear Cardiovascular: normal peripheral pulses, normal rate Abdomen: normal bowel sounds, soft, non tender Genitourinary: normal external genitalia Extremities: no clubbing Neurologic/Psychiatric: no motor/sensory deficits Lymphatic: no neck adenopathy, no groin adenopathy Microbiology Date/Time Source Procedure Growth Status 07/10/16 18:00 Blood Blood Culture - Preliminary NO GROWTH AFTER 24 HOURS Resulted 07/10/16 17:50 Blood Blood Culture - Preliminary NO GROWTH AFTER 24 HOURS Resulted 07/11/16 12:30 Sputum Gram Stain - Final Resulted 07/11/16 12:30 Sputum Sputum Culture - Preliminary NO GROWTH Resulted 07/11/16 09:30 Nasopharynx Influenza Types A,B Antigen (KYLE) - Final Complete Laboratory Tests 07/12/16 11:30: Total Creatine Kinase 760H, Vancomycin Level Trough 7.5 Current Medications Medications (Trade) Dose Ordered Sig/Brad Route PRN Reason Start Time Stop Time Status Last Admin Dose Admin Acetaminophen (Tylenol) 650 mg Q4H PRN ORAL fever 07/10/16 20:45 08/09/16 20:44 Al Hydroxide/Mg Hydroxide (Mylanta II) 30 ml Q6H PRN ORAL dyspepsia 07/10/16 20:45 08/09/16 20:44 07/11/16 01:04 Albuterol/ Ipratropium (DuoNeb 0.5-3(2.5)mg/3ml) 3 ml EVERY 4 HOURS PRN HHN Shortness of Breath 07/10/16 20:45 07/15/16 20:44 Amlodipine Besylate (Norvasc) 10 mg DAILY ORAL 07/11/16 09:00 08/10/16 08:59 07/12/16 10:22 Heparin Sodium (Porcine) (Heparin 5000 units/ml) 5,000 units EVERY 12 HOURS SUBQ 07/10/16 22:00 08/09/16 21:59 07/12/16 10:23 Nitroglycerin (Ntg) 0.4 mg Q5M PRN SL Prn Chest Pain 07/10/16 20:45 08/09/16 20:44 Ondansetron HCl (Zofran) 4 mg Q6H PRN IVP Nausea & Vomiting 07/10/16 20:45 08/09/16 20:44 Piperacillin Sod/ Tazobactam Sod/ Dextrose (Zosyn/D5W) 110 ml @ 27.5 mls/hr EVERY 8 HOURS IVPB 07/10/16 22:30 07/15/16 22:29 07/12/16 06:03 Polyethylene Glycol (Miralax) 17 gm DAILYPRN PRN ORAL Constipation 07/10/16 20:45 08/09/16 20:44 Promethazine HCl/ Codeine 5 ml 5 ml Q4H PRN ORAL For Cough 07/10/16 20:45 08/09/16 20:44 Temazepam (Restoril) 15 mg HSPRN PRN ORAL Insomnia 07/10/16 20:45 07/17/16 20:44 Vancomycin HCl 1 ea 1 ea DAILY PRN MISC . 07/10/16 21:15 08/09/16 21:14 Vancomycin HCl/ Dextrose (Vancomycin/D5W) 275 ml @ 183.708 mls/hr Q8HR@0400,1200,2000 IVPB 07/12/16 20:00 07/17/16 19:59 BRINA BRAGG Jul 12, 2016 15:50
[2016-07-12 16:00] VITALS: BP 108/72
--- NOTE | 2016-07-12 17:18 | Infectious Diseases Prog Note ---
Assessment/Plan Problems: (1) CAP (community acquired pneumonia) Assessment & Plan: continue zosyn and vancomycin empirically for now, influenza screening is negative , blood culture and sputum culture are pending (2) Sepsis Assessment & Plan: due to pneumonia, continue zosyn and vancomycin , await blood culture (3) Asthma Assessment & Plan: continue nebulizers and titrate oxygen to keep O2 sat >90 % (4) Acute respiratory failure Assessment & Plan: due to the above, continue nebulizers, and oxygen , monitor CXR, pulmonary is following (5) Elevated LFTs Assessment & Plan: suspect liver shock, hepatitis panel is pending , monitor LFT, avoid hepatotoxic meds Subjective Constitutional: Reports: fatigue Respiratory: Reports: productive cough Allergies: Coded Allergies: No Known Allergies (Unverified , 07/10/16) Subjective feels better, has less cough and SOB, no fever or chills. Objective Vital Signs Last 24 Hour Vital Signs Date Time Temp Pulse Resp B/P Pulse Ox O2 Delivery O2 Flow Rate FiO2 07/12/16 16:00 97.9 87 21 108/72 93 Nasal Cannula 2.0 07/12/16 11:31 96.3 93 20 123/93 96 Nasal Cannula 2.0 07/12/16 10:22 88 127/77 07/12/16 09:40 88 16 Nasal Cannula 2.0 28 07/12/16 08:15 96.1 89 20 127/77 95 Nasal Cannula 2.0 07/12/16 08:00 91 07/12/16 05:36 85 18 96 2.0 07/12/16 04:00 92 07/12/16 04:00 97.9 91 20 133/76 97 Bi-pap 07/12/16 03:30 86 16 97 Facial 40 07/12/16 01:20 89 16 96 Facial 40 07/12/16 00:00 99.0 89 20 108/74 97 Bi-pap 07/12/16 00:00 99 07/11/16 23:55 87 16 99 Facial 40 07/11/16 20:00 99.3 97 20 129/73 96 Nasal Cannula 2.0 07/11/16 20:00 100 07/11/16 19:00 84 16 Nasal Cannula 2.0 28 Height (Feet): 6 Height (Inches): 10.00 Weight (Pounds): 292 General Appearance: WD/WN, no acute distress HEENT: normocephalic, atraumatic, anicteric, mucous membranes moist Respiratory/Chest: chest wall non-tender, normal breath sounds, no respiratory distress, no accessory muscle use, decreased breath sounds, crackles/rales, rhonchi - right Cardiovascular: normal peripheral pulses, normal rate, regular rhythm, no gallop/murmur, no JVD Abdomen: normal bowel sounds, soft, non tender, no organomegaly, non distended , no mass Extremities: no cyanosis, no clubbing Skin: no rash, no lesions, no ulcers Microbiology Date/Time Source Procedure Growth Status 07/10/16 18:00 Blood Blood Culture - Preliminary NO GROWTH AFTER 24 HOURS Resulted 07/10/16 17:50 Blood Blood Culture - Preliminary NO GROWTH AFTER 24 HOURS Resulted 07/11/16 12:30 Sputum Gram Stain - Final Resulted 07/11/16 12:30 Sputum Sputum Culture - Preliminary NO GROWTH Resulted 07/11/16 09:30 Nasopharynx Influenza Types A,B Antigen (KYLE) - Final Complete Laboratory Tests Test 07/12/16 11:30 Total Creatine Kinase 760 U/L (38-174) H Vancomycin Level Trough 7.5 ug/mL (5.0-12.0) Current Medications Medications (Trade) Dose Ordered Sig/Brad Route PRN Reason Start Time Stop Time Status Last Admin Dose Admin Acetaminophen (Tylenol) 650 mg Q4H PRN ORAL fever 07/10/16 20:45 08/09/16 20:44 Al Hydroxide/Mg Hydroxide (Mylanta II) 30 ml Q6H PRN ORAL dyspepsia 07/10/16 20:45 08/09/16 20:44 07/11/16 01:04 Albuterol/ Ipratropium (DuoNeb 0.5-3(2.5)mg/3ml) 3 ml EVERY 4 HOURS PRN HHN Shortness of Breath 07/10/16 20:45 07/15/16 20:44 Amlodipine Besylate (Norvasc) 10 mg DAILY ORAL 07/11/16 09:00 08/10/16 08:59 07/12/16 10:22 Heparin Sodium (Porcine) (Heparin 5000 units/ml) 5,000 units EVERY 12 HOURS SUBQ 07/10/16 22:00 08/09/16 21:59 07/12/16 10:23 Nitroglycerin (Ntg) 0.4 mg Q5M PRN SL Prn Chest Pain 07/10/16 20:45 08/09/16 20:44 Ondansetron HCl (Zofran) 4 mg Q6H PRN IVP Nausea & Vomiting 07/10/16 20:45 08/09/16 20:44 Piperacillin Sod/ Tazobactam Sod/ Dextrose (Zosyn/D5W) 110 ml @ 27.5 mls/hr EVERY 8 HOURS IVPB 07/10/16 22:30 07/15/16 22:29 07/12/16 15:50 Polyethylene Glycol (Miralax) 17 gm DAILYPRN PRN ORAL Constipation 07/10/16 20:45 08/09/16 20:44 Promethazine HCl/ Codeine 5 ml 5 ml Q4H PRN ORAL For Cough 07/10/16 20:45 08/09/16 20:44 Temazepam (Restoril) 15 mg HSPRN PRN ORAL Insomnia 07/10/16 20:45 07/17/16 20:44 Vancomycin HCl 1 ea 1 ea DAILY PRN MISC . 07/10/16 21:15 08/09/16 21:14 Vancomycin HCl/ Dextrose (Vancomycin/D5W) 275 ml @ 183.708 mls/hr Q8HR@0400,1200,2000 IVPB 07/12/16 20:00 07/17/16 19:59 Cammy Garcia M.D. Jul 12, 2016 17:18
[2016-07-12 20:00] VITALS: BP 116/74
--- NOTE | 2016-07-12 22:11 | General Progress Note ---
Assessment/Plan Assessment/Plan ASSESSMENT 1. Thrombocytopenia getting getting worse most likely due to underlying sepsis 2. Sepsis-- on IV abx 3. Leukocytosis--improving 4. Pneumonia 5. Acute respiratory failure- improving 6. Hepatitis panel-- Negative RECOMMENDATION 1. Monitor platelet count 2. Maintain hemoglobin above 7 3. DVT prophylaxis 4. GI Prophylaxis as needed 5.HIV Pending 6. follow up the Hematology clinic 8. DW staff Subjective Constitutional: Reports: no symptoms HEENT: Reports: no symptoms Cardiovascular: Reports: no symptoms Respiratory: Reports: shortness of breath Gastrointestinal/Abdominal: Reports: no symptoms Neurologic/Psychiatric: Reports: no symptoms Endocrine: Reports: no symptoms Hematologic/Lymphatic: Reports: other Allergies: Coded Allergies: No Known Allergies (Unverified , 07/10/16) Subjective patient is stable Objective Last 24 Hour Vital Signs Date Time Temp Pulse Resp B/P Pulse Ox O2 Delivery O2 Flow Rate FiO2 07/12/16 20:00 97.8 93 19 116/74 97 Nasal Cannula 2.0 07/12/16 19:15 81 16 Nasal Cannula 2.0 28 07/12/16 16:00 97.9 87 21 108/72 93 Nasal Cannula 2.0 07/12/16 16:00 90 07/12/16 12:00 89 07/12/16 11:31 96.3 93 20 123/93 96 Nasal Cannula 2.0 07/12/16 10:22 88 127/77 07/12/16 09:40 88 16 Nasal Cannula 2.0 28 07/12/16 08:15 96.1 89 20 127/77 95 Nasal Cannula 2.0 07/12/16 08:00 91 Intake and Output 07/12/16 07/12/16 11:00 23:00 Intake Total 708.1 ml 807.416 ml Output Total 1375 ml Balance -666.9 ml 807.416 ml Intake Oral 240 ml 440 ml IV Total 468.1 ml 367.416 ml Output Urine Total 1375 ml Laboratory Tests 07/12/16 11:30: Total Creatine Kinase 760H, Vancomycin Level Trough 7.5 Height (Feet): 6 Height (Inches): 10.00 Weight (Pounds): 292 General Appearance: no apparent distress EENT: PERRL/EOMI Neck: supple Cardiovascular: normal rate Respiratory/Chest: no respiratory distress Abdomen: soft Edema: 1+ Leg (L), 1+ Leg (R) Skin: warm/dry River Johns Jul 12, 2016 22:11
--- NOTE | 2016-07-12 22:50 | General Progress Note ---
Assessment/Plan Assessment/Plan Assessment - abnormal LFT, ? due to Rhabdo - elevated CK - PNA - Sepsis Recommendations - f/u abd U/S - hydration - follow labs - abx Subjective Allergies: Coded Allergies: No Known Allergies (Unverified , 07/10/16) Subjective Feels OK no abdominal pain d/w pt re GI w/u Objective Last 24 Hour Vital Signs Date Time Temp Pulse Resp B/P Pulse Ox O2 Delivery O2 Flow Rate FiO2 07/12/16 20:00 92 07/12/16 20:00 97.8 93 19 116/74 97 Nasal Cannula 2.0 07/12/16 19:15 81 16 Nasal Cannula 2.0 28 07/12/16 16:00 97.9 87 21 108/72 93 Nasal Cannula 2.0 07/12/16 16:00 90 07/12/16 12:00 89 07/12/16 11:31 96.3 93 20 123/93 96 Nasal Cannula 2.0 07/12/16 10:22 88 127/77 07/12/16 09:40 88 16 Nasal Cannula 2.0 28 07/12/16 08:15 96.1 89 20 127/77 95 Nasal Cannula 2.0 07/12/16 08:00 91 07/12/16 05:36 85 18 96 2.0 07/12/16 04:00 92 07/12/16 04:00 97.9 91 20 133/76 97 Bi-pap 07/12/16 03:30 86 16 97 Facial 40 07/12/16 01:20 89 16 96 Facial 40 07/12/16 00:00 99.0 89 20 108/74 97 Bi-pap 07/12/16 00:00 99 07/11/16 23:55 87 16 99 Facial 40 Intake and Output 07/11/16 07/12/16 18:59 06:59 Intake Total 994.9 ml 925.0 ml Output Total 1550 ml Balance 994.9 ml -625.0 ml Intake Oral 490 ml 540 ml IV Total 504.9 ml 385.0 ml Output Urine Total 1550 ml # Voids 1 # Bowel Movements 1 Laboratory Tests 07/12/16 11:30: Total Creatine Kinase 760H, Vancomycin Level Trough 7.5 Height (Feet): 6 Height (Inches): 10.00 Weight (Pounds): 292 Objective obese AA man NCAT supple CTA RRR soft NT ND no edema MARTA LINARES Jul 12, 2016 22:50
[2016-07-13] VITALS: BP 110/72
[2016-07-13 04:00] VITALS: BP 126/86
[2016-07-13] MEDS: Vancomycin 1gm/D5W 275ml IVPB SCH ×4 (04:14→11:14)
[2016-07-13] MEDS: Piperacillin/Tazobactam 3.375 GM in D5W 110 ML IVPB SCH ×3 (06:13→22:06)
[2016-07-13 08:04] VITALS: BP 130/90
[2016-07-13] MEDS: Heparin 5000 units/ml inj SUBQ SCH ×2 (08:29→22:00)
[2016-07-13 11:19] LABS: APPEARANCE,URINE CLEAR; KETONES,URINE NEGATIVE (NEGATIVE); LEUKOCYTE ESTERASE ,URINE 1+ (NEGATIVE); NITRITE,URINE NEGATIVE (NEGATIVE); PH,URINE 6 (4.5-8.0); PROTEIN,URINE 2+ (NEGATIVE); UROBILINOGEN,URINE 4 MG/DL (0.0-1.0)
--- NOTE | 2016-07-13 11:19 | General Progress Note ---
Assessment/Plan Problem List: (1) Diabetes ICD Codes: E11.9 - Type 2 diabetes mellitus without complications SNOMED: 70124975 (2) Acute respiratory failure ICD Codes: J96.00 - Acute respiratory failure, unspecified whether with hypoxia or hypercapnia SNOMED: 07776317 (3) Elevated LFTs ICD Codes: R94.5 - Abnormal results of liver function studies SNOMED: 025908337 (4) Pneumonia ICD Codes: J18.9 - Pneumonia, unspecified organism SNOMED: 732874285 (5) HTN (hypertension) ICD Codes: I10 - Essential (primary) hypertension SNOMED: 61800157 (6) MARIA FERNANDA (obstructive sleep apnea) ICD Codes: G47.33 - Obstructive sleep apnea (adult) (pediatric) SNOMED: 53342184 (7) CAP (community acquired pneumonia) ICD Codes: J18.9 - Pneumonia, unspecified organism SNOMED: 595406143 Status: progressing Assessment/Plan pna resp insuff clinically improving afebrile Subjective ROS Limited/Unobtainable: Yes Constitutional: Reports: no symptoms Allergies: Coded Allergies: No Known Allergies (Unverified , 07/10/16) Objective Last 24 Hour Vital Signs Date Time Temp Pulse Resp B/P Pulse Ox O2 Delivery O2 Flow Rate FiO2 07/13/16 08:29 96 130/90 07/13/16 08:04 96.2 96 20 130/90 95 Nasal Cannula 2.0 07/13/16 08:00 95 07/13/16 04:00 97.7 100 20 126/86 97 Room Air 07/13/16 04:00 99 07/13/16 00:00 98.0 80 20 110/72 97 Room Air 07/13/16 00:00 92 07/12/16 20:00 92 07/12/16 20:00 97.8 93 19 116/74 97 Nasal Cannula 2.0 07/12/16 19:15 81 16 Nasal Cannula 2.0 28 07/12/16 16:00 97.9 87 21 108/72 93 Nasal Cannula 2.0 07/12/16 16:00 90 07/12/16 12:00 89 07/12/16 11:31 96.3 93 20 123/93 96 Nasal Cannula 2.0 Intake and Output 07/12/16 07/13/16 19:00 07:00 Intake Total 1005.516 ml 297.5 ml Output Total 325 ml 900 ml Balance 680.516 ml -602.5 ml Intake Oral 440 ml IV Total 565.516 ml 297.5 ml Output Urine Total 325 ml 900 ml Laboratory Tests 07/12/16 11:30: Total Creatine Kinase 760H, Vancomycin Level Trough 7.5 07/13/16 11:00: Urine Color [Pending], Urine Appearance [Pending], Urine pH [Pending], Urine Specific [place] [Pending], Urine Protein [Pending], Urine Glucose (UA) [Pending ], Urine Ketones [Pending], Urine Occult Blood [Pending], Urine Nitrite [Pending ], Urine Bilirubin [Pending], Urine Urobilinogen [Pending], Urine Leukocyte Esterase [Pending] Height (Feet): 6 Height (Inches): 10.00 Weight (Pounds): 292 EENT: PERRL/EOMI Cardiovascular: normal peripheral pulses Respiratory/Chest: lungs clear Jamel Vernon MD Jul 13, 2016 11:19
[2016-07-13 11:37] LABS: BACTERIA,URINE FEW /HPF; SQUAMOUS EPITHELIAL CELL,UR OCCASIONAL /LPF (NONE/OCC)
[2016-07-13 11:45] VITALS: BP 134/92
[2016-07-13 16:00] VITALS: BP 118/89
--- NOTE | 2016-07-13 16:50 | Infectious Diseases Prog Note ---
Assessment/Plan Problems: (1) CAP (community acquired pneumonia) Assessment & Plan: continue zosyn and vancomycin empirically for now, influenza screening is negative , blood culture and sputum culture are pending (2) Sepsis Assessment & Plan: due to pneumonia, continue zosyn and vancomycin , await blood culture (3) Asthma Assessment & Plan: continue nebulizers and titrate oxygen to keep O2 sat >90 % (4) Acute respiratory failure Assessment & Plan: due to the above, continue nebulizers, and oxygen , monitor CXR, pulmonary is following (5) Elevated LFTs Assessment & Plan: suspect liver shock, hepatitis panel is negative , monitor LFT, avoid hepatotoxic meds Subjective Constitutional: Reports: fatigue Respiratory: Reports: productive cough Neurologic: Reports: weakness Allergies: Coded Allergies: No Known Allergies (Unverified , 07/10/16) All Systems: reviewed and negative except above Subjective feels better, has less cough and SOB, no fever or chills. Objective Vital Signs Last 24 Hour Vital Signs Date Time Temp Pulse Resp B/P Pulse Ox O2 Delivery O2 Flow Rate FiO2 07/13/16 16:00 98.4 99 20 118/89 93 Room Air 07/13/16 12:10 92 20 Nasal Cannula 2.0 28 07/13/16 12:00 88 07/13/16 11:45 97.2 94 20 134/92 95 Nasal Cannula 2.0 07/13/16 08:29 96 130/90 07/13/16 08:04 96.2 96 20 130/90 95 Nasal Cannula 2.0 07/13/16 08:00 95 07/13/16 04:00 97.7 100 20 126/86 97 Room Air 07/13/16 04:00 99 07/13/16 00:00 98.0 80 20 110/72 97 Room Air 07/13/16 00:00 92 07/12/16 20:00 92 07/12/16 20:00 97.8 93 19 116/74 97 Nasal Cannula 2.0 07/12/16 19:15 81 16 Nasal Cannula 2.0 28 Height (Feet): 6 Height (Inches): 10.00 Weight (Pounds): 292 General Appearance: WD/WN, no acute distress HEENT: normocephalic, atraumatic, anicteric, mucous membranes moist, PERRL Respiratory/Chest: chest wall non-tender, lungs clear, normal breath sounds, no respiratory distress, no accessory muscle use Cardiovascular: normal peripheral pulses, normal rate, regular rhythm, no gallop/murmur, no JVD Abdomen: normal bowel sounds, soft, non tender, no organomegaly, non distended , no mass, no scars Extremities: no cyanosis, no clubbing Skin: no rash, no lesions, no ulcers Microbiology Date/Time Source Procedure Growth Status 07/10/16 18:00 Blood Blood Culture - Preliminary NO GROWTH AFTER 48 HOURS Resulted 07/10/16 17:50 Blood Blood Culture - Preliminary NO GROWTH AFTER 48 HOURS Resulted 07/11/16 12:30 Sputum Gram Stain - Final Complete 07/11/16 12:30 Sputum Sputum Culture - Final NORMAL UPPER RESPIRATORY KATELYN PRESENT Complete 07/11/16 09:30 Nasopharynx Influenza Types A,B Antigen (KYLE) - Final Complete Laboratory Tests Test 07/13/16 11:00 Urine Color Yellow Urine Appearance Clear Urine pH 6 (4.5-8.0) Urine Specific [place] 1.015 (1.005-1.035) Urine Protein 2+ (NEGATIVE) H Urine Glucose (UA) Negative (NEGATIVE) Urine Ketones Negative (NEGATIVE) Urine Occult Blood 1+ (NEGATIVE) H Urine Nitrite Negative (NEGATIVE) Urine Bilirubin Negative (NEGATIVE) Urine Urobilinogen 4 MG/DL (0.0-1.0) H Urine Leukocyte Esterase 1+ (NEGATIVE) H Urine RBC 2-4 /HPF (0 - 0) H Urine WBC 2-4 /HPF (0 - 0) Urine Squamous Epithelial Cells Occasional /LPF Urine Bacteria Few /HPF (NONE) Current Medications Medications (Trade) Dose Ordered Sig/Brad Route PRN Reason Start Time Stop Time Status Last Admin Dose Admin Acetaminophen (Tylenol) 650 mg Q4H PRN ORAL fever 07/10/16 20:45 08/09/16 20:44 Al Hydroxide/Mg Hydroxide (Mylanta II) 30 ml Q6H PRN ORAL dyspepsia 07/10/16 20:45 08/09/16 20:44 07/11/16 01:04 Albuterol/ Ipratropium (DuoNeb 0.5-3(2.5)mg/3ml) 3 ml EVERY 4 HOURS PRN HHN Shortness of Breath 07/10/16 20:45 07/15/16 20:44 Amlodipine Besylate (Norvasc) 10 mg DAILY ORAL 07/11/16 09:00 08/10/16 08:59 07/13/16 08:29 Heparin Sodium (Porcine) (Heparin 5000 units/ml) 5,000 units EVERY 12 HOURS SUBQ 07/10/16 22:00 08/09/16 21:59 07/12/16 20:48 Nitroglycerin (Ntg) 0.4 mg Q5M PRN SL Prn Chest Pain 07/10/16 20:45 08/09/16 20:44 Ondansetron HCl (Zofran) 4 mg Q6H PRN IVP Nausea & Vomiting 07/10/16 20:45 08/09/16 20:44 Piperacillin Sod/ Tazobactam Sod/ Dextrose (Zosyn/D5W) 110 ml @ 27.5 mls/hr EVERY 8 HOURS IVPB 07/10/16 22:30 07/15/16 22:29 07/13/16 13:22 Polyethylene Glycol (Miralax) 17 gm DAILYPRN PRN ORAL Constipation 07/10/16 20:45 08/09/16 20:44 Promethazine HCl/ Codeine 5 ml 5 ml Q4H PRN ORAL For Cough 07/10/16 20:45 08/09/16 20:44 Temazepam (Restoril) 15 mg HSPRN PRN ORAL Insomnia 07/10/16 20:45 07/17/16 20:44 Vancomycin HCl 1 ea 1 ea DAILY PRN MISC . 07/10/16 21:15 08/09/16 21:14 Vancomycin HCl/ Dextrose (Vancomycin/D5W) 275 ml @ 183.708 mls/hr Q8HR@0400,1200,2000 IVPB 07/12/16 20:00 07/17/16 19:59 07/13/16 11:14 Cammy Garcia M.D. Jul 13, 2016 16:50
[2016-07-13] MEDS ORDERED: Nitroglycerin Subl 0.4mg tab (Bottle Of 25) SL PRN (18:15)
--- NOTE | 2016-07-13 19:20 | General Progress Note ---
Assessment/Plan Assessment/Plan ASSESSMENT 1. Thrombocytopenia getting getting worse most likely due to underlying infection 2. Sepsis-- on IV abx 3. Pneumonia on abx 4. Leukocytosis--improving 5. Acute respiratory failure- improving 6. Hepatitis panel-- Negative , HIV panel-- Negative RECOMMENDATION 1. Monitor platelet count 2. Maintain hemoglobin above 7 3. DVT prophylaxis 4. GI Prophylaxis as needed 5. follow up the Hematology clinic 6. DW staff Subjective Constitutional: Reports: no symptoms HEENT: Reports: no symptoms Cardiovascular: Reports: no symptoms Gastrointestinal/Abdominal: Reports: no symptoms Hematologic/Lymphatic: Reports: anemia Allergies: Coded Allergies: No Known Allergies (Unverified , 07/10/16) Subjective patient feeling better, less shortness of breath Objective Last 24 Hour Vital Signs Date Time Temp Pulse Resp B/P Pulse Ox O2 Delivery O2 Flow Rate FiO2 07/13/16 16:00 98.4 99 20 118/89 93 Room Air 07/13/16 12:10 92 20 Nasal Cannula 2.0 28 07/13/16 12:00 88 07/13/16 11:45 97.2 94 20 134/92 95 Nasal Cannula 2.0 07/13/16 08:29 96 130/90 07/13/16 08:04 96.2 96 20 130/90 95 Nasal Cannula 2.0 07/13/16 08:00 95 07/13/16 04:00 97.7 100 20 126/86 97 Room Air 07/13/16 04:00 99 Intake and Output 07/13/16 07/13/16 11:00 23:00 Intake Total 350.0 ml 627.4 ml Output Total 1000 ml 600 ml Balance -650.0 ml 27.4 ml Intake Oral 240 ml 150 ml IV Total 110.0 ml 477.4 ml Output Urine Total 1000 ml 600 ml # Bowel Movements 1 Laboratory Tests 07/13/16 11:00: Urine Color Yellow, Urine Appearance Clear, Urine pH 6, Urine Specific [place] 1.015, Urine Protein 2+H, Urine Glucose (UA) Negative, Urine Ketones Negative, Urine Occult Blood 1+H, Urine Nitrite Negative, Urine Bilirubin Negative, Urine Urobilinogen 4H, Urine Leukocyte Esterase 1+H, Urine RBC 2-4H, Urine WBC 2-4, Urine Squamous Epithelial Cells Occasional, Urine Bacteria Few Height (Feet): 6 Height (Inches): 10.00 Weight (Pounds): 292 General Appearance: no apparent distress EENT: PERRL/EOMI Neck: supple Cardiovascular: normal rate Respiratory/Chest: no respiratory distress Abdomen: soft Edema: 1+ Leg (L), 1+ Leg (R) Neurologic: alert Skin: warm/dry River Johns Jul 13, 2016 19:20
--- NOTE | 2016-07-13 19:40 | General Progress Note ---
Assessment/Plan Assessment/Plan Assessment - abnormal LFT, ? due to Rhabdo - elevated CK / rhabdo - PNA - Sepsis Recommendations - f/u abd U/S - hydration - follow labs - abx - push po Subjective Allergies: Coded Allergies: No Known Allergies (Unverified , 07/10/16) Subjective Feels OK no abdominal pain did have abd ultraousoud - results pending Objective Last 24 Hour Vital Signs Date Time Temp Pulse Resp B/P Pulse Ox O2 Delivery O2 Flow Rate FiO2 07/13/16 19:08 Nasal Cannula 2.0 28 07/13/16 19:08 94 18 Nasal Cannula 2.0 28 07/13/16 19:08 95 Nasal Cannula 2.0 28 07/13/16 16:00 98.4 99 20 118/89 93 Room Air 07/13/16 12:10 92 20 Nasal Cannula 2.0 28 07/13/16 12:00 88 07/13/16 11:45 97.2 94 20 134/92 95 Nasal Cannula 2.0 07/13/16 08:29 96 130/90 07/13/16 08:04 96.2 96 20 130/90 95 Nasal Cannula 2.0 07/13/16 08:00 95 07/13/16 04:00 97.7 100 20 126/86 97 Room Air 07/13/16 04:00 99 07/13/16 00:00 98.0 80 20 110/72 97 Room Air 07/13/16 00:00 92 07/12/16 20:00 92 07/12/16 20:00 97.8 93 19 116/74 97 Nasal Cannula 2.0 Intake and Output 07/12/16 07/13/16 19:00 07:00 Intake Total 1005.516 ml 297.5 ml Output Total 325 ml 900 ml Balance 680.516 ml -602.5 ml Intake Oral 440 ml IV Total 565.516 ml 297.5 ml Output Urine Total 325 ml 900 ml Laboratory Tests 07/13/16 11:00: Urine Color Yellow, Urine Appearance Clear, Urine pH 6, Urine Specific [place] 1.015, Urine Protein 2+H, Urine Glucose (UA) Negative, Urine Ketones Negative, Urine Occult Blood 1+H, Urine Nitrite Negative, Urine Bilirubin Negative, Urine Urobilinogen 4H, Urine Leukocyte Esterase 1+H, Urine RBC 2-4H, Urine WBC 2-4, Urine Squamous Epithelial Cells Occasional, Urine Bacteria Few Height (Feet): 6 Height (Inches): 10.00 Weight (Pounds): 292 Objective obese AA man NCAT supple CTA RRR soft NT ND no edema MARTA LINARES Jul 13, 2016 19:40
[2016-07-13 20:00] VITALS: BP 128/74
[2016-07-13] MEDS ORDERED: Mylanta II UD 30ml ORAL PRN (20:00)
[2016-07-13] MEDS ORDERED: DuoNeb 0.5-3(2.5)mg/3ml neb HHN PRN (20:00)
[2016-07-13] MEDS ORDERED: Miralax 17gm pkt ORAL PRN (20:00)
[2016-07-13] MEDS ORDERED: Promethazine/Codeine 5ml UD ORAL PRN (20:00)
[2016-07-13] MEDS ORDERED: Vancomycin 1 GM in D5W 275 ML IVPB SCH (20:00)
[2016-07-14] VITALS: BP 127/66
[2016-07-14] MEDS: Vancomycin 1250mg in D5W 275ml IVPB SCH ×3 (01:54→18:51)
[2016-07-14 04:00] VITALS: BP 118/62
[2016-07-14] MEDS: Piperacillin/Tazobactam 3.375 GM in D5W 110 ML IVPB SCH ×4 (05:54→21:31)
--- NOTE | 2016-07-14 07:42 | General Progress Note ---
Assessment/Plan Problem List: (1) Diabetes ICD Codes: E11.9 - Type 2 diabetes mellitus without complications SNOMED: 57944498 (2) Asthma ICD Codes: J45.909 - Unspecified asthma, uncomplicated SNOMED: 709636458 (3) Elevated LFTs ICD Codes: R94.5 - Abnormal results of liver function studies SNOMED: 105028188 (4) HTN (hypertension) ICD Codes: I10 - Essential (primary) hypertension SNOMED: 05287171 Assessment/Plan repeat lfts fu abd us out patient fu for GI procedures Subjective ROS Limited/Unobtainable: Yes Allergies: Coded Allergies: No Known Allergies (Unverified , 07/10/16) Subjective no event over night Objective Last 24 Hour Vital Signs Date Time Temp Pulse Resp B/P Pulse Ox O2 Delivery O2 Flow Rate FiO2 07/14/16 04:00 98.2 57 20 118/62 97 Room Air 07/14/16 00:00 98.8 75 20 127/66 97 Nasal Cannula 2.0 07/13/16 20:00 97.7 99 20 128/74 94 Room Air 07/13/16 19:08 Nasal Cannula 2.0 28 07/13/16 19:08 94 18 Nasal Cannula 2.0 28 07/13/16 19:08 95 Nasal Cannula 2.0 28 07/13/16 16:00 98.4 99 20 118/89 93 Room Air 07/13/16 12:10 92 20 Nasal Cannula 2.0 28 07/13/16 12:00 88 07/13/16 11:45 97.2 94 20 134/92 95 Nasal Cannula 2.0 07/13/16 08:29 96 130/90 07/13/16 08:04 96.2 96 20 130/90 95 Nasal Cannula 2.0 07/13/16 08:00 95 Intake and Output 07/13/16 07/14/16 19:00 07:00 Intake Total 977.4 ml 380 ml Output Total 1000 ml 550 ml Balance -22.6 ml -170 ml Intake Oral 390 ml 380 ml IV Total 587.4 ml Output Urine Total 1000 ml 550 ml # Voids 3 # Bowel Movements 1 Laboratory Tests 07/13/16 11:00: Urine Color Yellow, Urine Appearance Clear, Urine pH 6, Urine Specific [place] 1.015, Urine Protein 2+H, Urine Glucose (UA) Negative, Urine Ketones Negative, Urine Occult Blood 1+H, Urine Nitrite Negative, Urine Bilirubin Negative, Urine Urobilinogen 4H, Urine Leukocyte Esterase 1+H, Urine RBC 2-4H, Urine WBC 2-4, Urine Squamous Epithelial Cells Occasional, Urine Bacteria Few 07/13/16 19:15: Vancomycin Level Trough 9.4 Height (Feet): 6 Height (Inches): 10.00 Weight (Pounds): 292 General Appearance: alert EENT: normal ENT inspection Neck: supple Cardiovascular: normal rate Respiratory/Chest: decreased breath sounds Abdomen: normal bowel sounds, non tender, soft Extremities: non-tender PITER DAVISON Jul 14, 2016 07:42
[2016-07-14 08:34] LABS: ALANINE AMINOTRANSFERASE 83 U/L (3-41); ANION GAP 14 (5-15); ASPARTATE AMINO TRANSFERASE 76 U/L (5-40); CARBON DIOXIDE 27 mEQ/L (20-30); CHLORIDE 99 mEQ/L (98-107); CREATININE 1.1 mg/dL (0.7-1.2); GLOMERULAR FILTRATION RATE > 60 mL/min (>60); HEMOLYSIS 4; MAGNESIUM 2.2 mg/dL (1.7-2.5); PHOSPHORUS 2.6 mg/dL (2.5-4.8); POTASSIUM 3.2 mEQ/L (3.4-4.9); SODIUM 140 mEQ/L (135-145); TOTAL PROTEIN 6.2 g/dL (6.6-8.7)
[2016-07-14 08:51] LABS: BASOPHILS % (AUTO) 1.7 % (0.0-2.0); EOSINOPHILS % (AUTO) 3.6 % (0.0-3.0); MEAN CORPUSCULAR HEMOGLOBIN 29.8 PG (27.0-31.0); MEAN CORPUSCULAR HGB CONC 32.7 G/DL (32.0-36.0); MEAN CORPUSCULAR VOLUME 91 FL (80-99); MEAN PLATELET VOLUME 8.5 FL (6.5-10.1); MONOCYTES % (AUTO) 9.5 % (1.0-10.0); NEUTROPHILS % (AUTO) 71.2 % (45.0-75.0); PLATELET COUNT 238 K/UL (150-450); RED BLOOD COUNT 4.71 M/UL (4.70-6.10); RED CELL DISTRIBUTION WIDTH 12.1 % (11.6-14.8); WHITE BLOOD COUNT 11.2 K/UL (4.8-10.8)
[2016-07-14 09:55] VITALS: BP 128/91
[2016-07-14] MEDS: Heparin 5000 units/ml inj SUBQ SCH ×2 (10:04→20:37)
--- NOTE | 2016-07-14 10:21 | General Progress Note ---
Assessment/Plan Assessment/Plan ASSESSMENT: 1. Thrombocytopenia - improved, was likely 2/2 infection. Hepatitis panel-- Negative , HIV panel-- Negative 2. Sepsis -- on IV abx 3. Pneumonia on abx 4. Leukocytosis -- improving 5. Acute respiratory failure - improving RECOMMENDATIONS: 1. Monitor platelet count 2. Maintain hemoglobin above 7 3. DVT prophylaxis prn 4. GI Prophylaxis as needed 6. staff Thank you, Marty Johns MD Subjective Constitutional: Reports: no symptoms HEENT: Reports: mouth pain Cardiovascular: Reports: no symptoms Respiratory: Reports: no symptoms Gastrointestinal/Abdominal: Reports: poor appetite Genitourinary: Reports: no symptoms Neurologic/Psychiatric: Reports: no symptoms Endocrine: Reports: no symptoms Hematologic/Lymphatic: Reports: anemia Allergies: Coded Allergies: No Known Allergies (Unverified , 07/10/16) Subjective stable, no events reported, no bleeding Objective Last 24 Hour Vital Signs Date Time Temp Pulse Resp B/P Pulse Ox O2 Delivery O2 Flow Rate FiO2 07/14/16 10:05 74 128/91 07/14/16 09:55 97.4 102 21 128/91 97 Room Air 07/14/16 04:00 98.2 57 20 118/62 97 Room Air 07/14/16 00:00 98.8 75 20 127/66 97 Nasal Cannula 2.0 07/13/16 20:00 97.7 99 20 128/74 94 Room Air 07/13/16 19:08 Nasal Cannula 2.0 28 07/13/16 19:08 94 18 Nasal Cannula 2.0 28 07/13/16 19:08 95 Nasal Cannula 2.0 28 07/13/16 16:00 98.4 99 20 118/89 93 Room Air 07/13/16 12:10 92 20 Nasal Cannula 2.0 28 07/13/16 12:00 88 07/13/16 11:45 97.2 94 20 134/92 95 Nasal Cannula 2.0 Intake and Output 07/13/16 07/14/16 19:00 07:00 Intake Total 977.4 ml 380 ml Output Total 1000 ml 550 ml Balance -22.6 ml -170 ml Intake Oral 390 ml 380 ml IV Total 587.4 ml Output Urine Total 1000 ml 550 ml # Voids 3 # Bowel Movements 1 Laboratory Tests 07/13/16 11:00: Urine Color Yellow, Urine Appearance Clear, Urine pH 6, Urine Specific [place] 1.015, Urine Protein 2+H, Urine Glucose (UA) Negative, Urine Ketones Negative, Urine Occult Blood 1+H, Urine Nitrite Negative, Urine Bilirubin Negative, Urine Urobilinogen 4H, Urine Leukocyte Esterase 1+H, Urine RBC 2-4H, Urine WBC 2-4, Urine Squamous Epithelial Cells Occasional, Urine Bacteria Few 07/13/16 19:15: Vancomycin Level Trough 9.4 07/14/16 07:35: White Blood Count 11.2H, Red Blood Count 4.71, Hemoglobin 14.0L, Hematocrit 42.9 , Mean Corpuscular Volume 91, Mean Corpuscular Hemoglobin 29.8, Mean Corpuscular Hemoglobin Concent 32.7, Red Cell Distribution Width 12.1, Platelet Count 238, Mean Platelet Volume 8.5, Neutrophils (%) (Auto) 71.2, Lymphocytes (% ) (Auto) 14.0L, Monocytes (%) (Auto) 9.5, Eosinophils (%) (Auto) 3.6H, Basophils (%) (Auto) 1.7, Sodium Level 140, Potassium Level 3.2L, Chloride Level 99, Carbon Dioxide Level 27, Anion Gap 14, Blood Urea Nitrogen 14, Creatinine 1.1, Estimat Glomerular Filtration Rate > 60, Glucose Level 107H, Calcium Level 8.0L, Phosphorus Level 2.6, Magnesium Level 2.2, Total Bilirubin 0.6, Aspartate Amino Transf (AST/SGOT) 76H, Alanine Aminotransferase (ALT/SGPT) 83H, Alkaline Phosphatase 56, Total Creatine Kinase 464H, Total Protein 6.2L, Albumin 3.2L, Globulin 3.0, Albumin/Globulin Ratio 1.0 Height (Feet): 6 Height (Inches): 10.00 Weight (Pounds): 292 General Appearance: no apparent distress EENT: TMs normal Neck: supple Cardiovascular: regular rhythm Respiratory/Chest: lungs clear Abdomen: soft Pelvis: no masses Extremities: non-tender Edema: 1+ Leg (L), 1+ Leg (R) Edema: mild edema Neurologic: no motor/sensory deficits Skin: warm/dry MARTY JOHNS Jul 14, 2016 10:21
--- NOTE | 2016-07-14 11:20 | General Progress Note ---
Assessment/Plan Problem List: (1) Diabetes ICD Codes: E11.9 - Type 2 diabetes mellitus without complications SNOMED: 58533475 (2) Acute respiratory failure ICD Codes: J96.00 - Acute respiratory failure, unspecified whether with hypoxia or hypercapnia SNOMED: 39309336 (3) Elevated LFTs ICD Codes: R94.5 - Abnormal results of liver function studies SNOMED: 601378349 (4) Pneumonia ICD Codes: J18.9 - Pneumonia, unspecified organism SNOMED: 370167193 (5) HTN (hypertension) ICD Codes: I10 - Essential (primary) hypertension SNOMED: 71523530 (6) MARIA FERNANDA (obstructive sleep apnea) ICD Codes: G47.33 - Obstructive sleep apnea (adult) (pediatric) SNOMED: 62989894 (7) CAP (community acquired pneumonia) ICD Codes: J18.9 - Pneumonia, unspecified organism SNOMED: 939230304 Status: progressing Assessment/Plan pna resp insuff reviewed chart and labs no wheezing improving Subjective ROS Limited/Unobtainable: Yes Constitutional: Reports: no symptoms Allergies: Coded Allergies: No Known Allergies (Unverified , 07/10/16) Objective Last 24 Hour Vital Signs Date Time Temp Pulse Resp B/P Pulse Ox O2 Delivery O2 Flow Rate FiO2 07/14/16 10:05 74 128/91 07/14/16 09:55 97.4 102 21 128/91 97 Room Air 07/14/16 04:00 98.2 57 20 118/62 97 Room Air 07/14/16 00:00 98.8 75 20 127/66 97 Nasal Cannula 2.0 07/13/16 20:00 97.7 99 20 128/74 94 Room Air 07/13/16 19:08 Nasal Cannula 2.0 28 07/13/16 19:08 94 18 Nasal Cannula 2.0 28 07/13/16 19:08 95 Nasal Cannula 2.0 28 07/13/16 16:00 98.4 99 20 118/89 93 Room Air 07/13/16 12:10 92 20 Nasal Cannula 2.0 28 07/13/16 12:00 88 07/13/16 11:45 97.2 94 20 134/92 95 Nasal Cannula 2.0 Intake and Output 07/13/16 07/14/16 19:00 07:00 Intake Total 977.4 ml 380 ml Output Total 1000 ml 550 ml Balance -22.6 ml -170 ml Intake Oral 390 ml 380 ml IV Total 587.4 ml Output Urine Total 1000 ml 550 ml # Voids 3 # Bowel Movements 1 Laboratory Tests 07/13/16 19:15: Vancomycin Level Trough 9.4 07/14/16 07:35: White Blood Count 11.2H, Red Blood Count 4.71, Hemoglobin 14.0L, Hematocrit 42.9 , Mean Corpuscular Volume 91, Mean Corpuscular Hemoglobin 29.8, Mean Corpuscular Hemoglobin Concent 32.7, Red Cell Distribution Width 12.1, Platelet Count 238, Mean Platelet Volume 8.5, Neutrophils (%) (Auto) 71.2, Lymphocytes (% ) (Auto) 14.0L, Monocytes (%) (Auto) 9.5, Eosinophils (%) (Auto) 3.6H, Basophils (%) (Auto) 1.7, Sodium Level 140, Potassium Level 3.2L, Chloride Level 99, Carbon Dioxide Level 27, Anion Gap 14, Blood Urea Nitrogen 14, Creatinine 1.1, Estimat Glomerular Filtration Rate > 60, Glucose Level 107H, Calcium Level 8.0L, Phosphorus Level 2.6, Magnesium Level 2.2, Total Bilirubin 0.6, Aspartate Amino Transf (AST/SGOT) 76H, Alanine Aminotransferase (ALT/SGPT) 83H, Alkaline Phosphatase 56, Total Creatine Kinase 464H, Total Protein 6.2L, Albumin 3.2L, Globulin 3.0, Albumin/Globulin Ratio 1.0 Height (Feet): 6 Height (Inches): 10.00 Weight (Pounds): 292 EENT: PERRL/EOMI Neck: supple Cardiovascular: normal rate Respiratory/Chest: lungs clear Abdomen: soft Jamel Venron MD Jul 14, 2016 11:20
[2016-07-14 12:00] VITALS: BP 125/87
--- NOTE | 2016-07-14 14:34 | Pulmonology Progress Note ---
Assessment/Plan Assessment/Plan ASSESSMENT acute respiratory failure requiring BiPAP -resolved sepsis CAP asthma ATN rhabdo elevated LFT HTN PLAN OF CARE [facility] floor weaned from BiPAP only at night and prn O2 HHN prn initial CXR with left perihilar infiltrate fup with CXR CT chest abx, sputum cx negative antitussive prn no evidence of asthma exacerbation, no need for steroids IVF ; push po GI follows trend LFT and CK, trending down renal parameters improved, creat down to normal ATN and elevated LFT likely 2 to rhabdo hepatitis panel negative GI prophylaxis DVT prophylaxis case discussed and evaluated by supervising physician Subjective Allergies: Coded Allergies: No Known Allergies (Unverified , 07/10/16) Subjective weaned to O2 via NC, off BiPAP transferred to OR no signs of respiratory distress Objective Last 24 Hour Vital Signs Date Time Temp Pulse Resp B/P Pulse Ox O2 Delivery O2 Flow Rate FiO2 07/14/16 12:00 97.2 101 19 125/87 99 Nasal Cannula 2.0 07/14/16 10:05 74 128/91 07/14/16 09:55 97.4 102 21 128/91 97 Room Air 07/14/16 04:00 98.2 57 20 118/62 97 Room Air 07/14/16 00:00 98.8 75 20 127/66 97 Nasal Cannula 2.0 07/13/16 20:00 97.7 99 20 128/74 94 Room Air 07/13/16 19:08 Nasal Cannula 2.0 28 07/13/16 19:08 94 18 Nasal Cannula 2.0 28 07/13/16 19:08 95 Nasal Cannula 2.0 28 07/13/16 16:00 98.4 99 20 118/89 93 Room Air Intake and Output 07/13/16 07/14/16 19:00 07:00 Intake Total 977.4 ml 380 ml Output Total 1000 ml 550 ml Balance -22.6 ml -170 ml Intake Oral 390 ml 380 ml IV Total 587.4 ml Output Urine Total 1000 ml 550 ml # Voids 3 # Bowel Movements 1 General Appearance: no acute distress HEENT: normocephalic, atraumatic, anicteric Respiratory/Chest: lungs clear, no respiratory distress, no accessory muscle use Cardiovascular: normal peripheral pulses, normal rate, regular rhythm Abdomen: normal bowel sounds, soft, non tender Genitourinary: normal external genitalia Neurologic/Psychiatric: alert, responsive Musculoskeletal: normal muscle bulk Laboratory Tests 07/13/16 19:15: Vancomycin Level Trough 9.4 07/14/16 07:35: White Blood Count 11.2H, Red Blood Count 4.71, Hemoglobin 14.0L, Hematocrit 42.9 , Mean Corpuscular Volume 91, Mean Corpuscular Hemoglobin 29.8, Mean Corpuscular Hemoglobin Concent 32.7, Red Cell Distribution Width 12.1, Platelet Count 238, Mean Platelet Volume 8.5, Neutrophils (%) (Auto) 71.2, Lymphocytes (% ) (Auto) 14.0L, Monocytes (%) (Auto) 9.5, Eosinophils (%) (Auto) 3.6H, Basophils (%) (Auto) 1.7, Sodium Level 140, Potassium Level 3.2L, Chloride Level 99, Carbon Dioxide Level 27, Anion Gap 14, Blood Urea Nitrogen 14, Creatinine 1.1, Estimat Glomerular Filtration Rate > 60, Glucose Level 107H, Calcium Level 8.0L, Phosphorus Level 2.6, Magnesium Level 2.2, Total Bilirubin 0.6, Aspartate Amino Transf (AST/SGOT) 76H, Alanine Aminotransferase (ALT/SGPT) 83H, Alkaline Phosphatase 56, Total Creatine Kinase 464H, Total Protein 6.2L, Albumin 3.2L, Globulin 3.0, Albumin/Globulin Ratio 1.0 Current Medications Medications (Trade) Dose Ordered Sig/Brad Route PRN Reason Start Time Stop Time Status Last Admin Dose Admin Acetaminophen (Tylenol) 650 mg Q4H PRN ORAL fever 07/13/16 20:00 08/12/16 19:59 Al Hydroxide/Mg Hydroxide (Mylanta II) 30 ml Q6H PRN ORAL dyspepsia 07/13/16 20:00 08/12/16 19:59 Albuterol/ Ipratropium (DuoNeb 0.5-3(2.5)mg/3ml) 3 ml Q4H PRN HHN Shortness of Breath 07/13/16 20:00 07/18/16 19:59 Amlodipine Besylate (Norvasc) 10 mg DAILY ORAL 07/14/16 09:00 08/13/16 08:59 07/14/16 10:05 Heparin Sodium (Porcine) (Heparin 5000 units/ml) 5,000 units EVERY 12 HOURS SUBQ 07/13/16 22:00 08/12/16 21:59 07/14/16 10:04 Nitroglycerin (Ntg) 0.4 mg Q5MIN X 3 DOSES PRN SL Prn Chest Pain 07/13/16 18:15 08/12/16 18:14 Ondansetron HCl (Zofran) 4 mg Q6H PRN IVP Nausea & Vomiting 07/13/16 20:00 08/12/16 19:59 Piperacillin Sod/ Tazobactam Sod/ Dextrose (Zosyn/D5W) 110 ml @ 27.5 mls/hr EVERY 8 HOURS IVPB 07/13/16 22:00 07/16/16 23:59 07/14/16 05:54 Polyethylene Glycol (Miralax) 17 gm DAILYPRN PRN ORAL Constipation 07/13/16 20:00 08/12/16 19:59 Promethazine HCl/ Codeine (Phenergan with Codeine) 5 ml Q4H PRN ORAL For Cough 07/13/16 20:00 08/12/16 19:59 Temazepam (Restoril) 15 mg HSPRN PRN ORAL Insomnia 07/13/16 20:00 07/20/16 19:59 Vancomycin HCl 1 ea 1 ea DAILY PRN MISC . 07/13/16 20:00 08/12/16 19:59 Vancomycin HCl/ Dextrose (Vancomycin/D5W) 275 ml @ 183.708 mls/hr Q8H IVPB 07/14/16 02:00 07/19/16 01:59 07/14/16 09:26 Francine Landeros NP ([facility]) Jul 14, 2016 14:34
--- NOTE | 2016-07-14 14:43 | Infectious Diseases Prog Note ---
Assessment/Plan Problems: (1) CAP (community acquired pneumonia) Assessment & Plan: continue zosyn and vancomycin empirically for now, influenza screening is negative , blood culture and sputum culture are negative so far. (2) Sepsis Assessment & Plan: due to pneumonia, continue zosyn and vancomycin , await blood culture (3) Asthma Assessment & Plan: continue nebulizers and titrate oxygen to keep O2 sat >90 % (4) Acute respiratory failure Assessment & Plan: due to the above, continue nebulizers, and oxygen , monitor CXR, pulmonary is following (5) Elevated LFTs Assessment & Plan: suspect liver shock, hepatitis panel is negative , monitor LFT, avoid hepatotoxic meds Subjective Constitutional: Reports: fatigue HEENT: Reports: congestion Respiratory: Reports: productive cough Breasts: Reports: no symptoms Cardiovascular: Reports: no symptoms Gastrointestinal/Abdominal: Reports: no symptoms Genitourinary: Reports: no symptoms Neurologic: Reports: no symptoms Psychiatric: Reports: no symptoms Skin: Reports: no symptoms Endocrine: Reports: no symptoms Hematologic: Reports: no symptoms Allergies: Coded Allergies: No Known Allergies (Unverified , 07/10/16) Subjective feels better, has less cough and SOB, no fever or chills. Objective Vital Signs Last 24 Hour Vital Signs Date Time Temp Pulse Resp B/P Pulse Ox O2 Delivery O2 Flow Rate FiO2 07/14/16 12:00 97.2 101 19 125/87 99 Nasal Cannula 2.0 07/14/16 10:05 74 128/91 07/14/16 09:55 97.4 102 21 128/91 97 Room Air 07/14/16 04:00 98.2 57 20 118/62 97 Room Air 07/14/16 00:00 98.8 75 20 127/66 97 Nasal Cannula 2.0 07/13/16 20:00 97.7 99 20 128/74 94 Room Air 07/13/16 19:08 Nasal Cannula 2.0 28 07/13/16 19:08 94 18 Nasal Cannula 2.0 28 07/13/16 19:08 95 Nasal Cannula 2.0 28 07/13/16 16:00 98.4 99 20 118/89 93 Room Air Height (Feet): 6 Height (Inches): 10.00 Weight (Pounds): 292 General Appearance: WD/WN, no acute distress HEENT: normocephalic, atraumatic, anicteric, mucous membranes moist Respiratory/Chest: chest wall non-tender, no respiratory distress, no accessory muscle use, decreased breath sounds, crackles/rales, expiratory wheezing Cardiovascular: normal peripheral pulses, normal rate, regular rhythm, no gallop/murmur Abdomen: normal bowel sounds, soft, non tender, no organomegaly, non distended , no mass, no scars Extremities: no cyanosis, no clubbing Skin: no rash, no lesions, no ulcers Laboratory Tests Test 07/13/16 19:15 07/14/16 07:35 Vancomycin Level Trough 9.4 ug/mL (5.0-12.0) White Blood Count 11.2 K/UL (4.8-10.8) H Red Blood Count 4.71 M/UL (4.70-6.10) Hemoglobin 14.0 G/DL (14.2-18.0) L Hematocrit 42.9 % (42.0-52.0) Mean Corpuscular Volume 91 FL (80-99) Mean Corpuscular Hemoglobin 29.8 PG (27.0-31.0) Mean Corpuscular Hemoglobin Concent 32.7 G/DL (32.0-36.0) Red Cell Distribution Width 12.1 % (11.6-14.8) Platelet Count 238 K/UL (150-450) Mean Platelet Volume 8.5 FL (6.5-10.1) Neutrophils (%) (Auto) 71.2 % (45.0-75.0) Lymphocytes (%) (Auto) 14.0 % (20.0-45.0) L Monocytes (%) (Auto) 9.5 % (1.0-10.0) Eosinophils (%) (Auto) 3.6 % (0.0-3.0) H Basophils (%) (Auto) 1.7 % (0.0-2.0) Sodium Level 140 mEQ/L (135-145) Potassium Level 3.2 mEQ/L (3.4-4.9) L Chloride Level 99 mEQ/L (98-107) Carbon Dioxide Level 27 mEQ/L (20-30) Anion Gap 14 (5-15) Blood Urea Nitrogen 14 mg/dL (7-23) Creatinine 1.1 mg/dL (0.7-1.2) Estimat Glomerular Filtration Rate > 60 mL/min (>60) Glucose Level 107 mg/dL (74-106) H Calcium Level 8.0 mg/dL (8.6-10.2) L Phosphorus Level 2.6 mg/dL (2.5-4.8) Magnesium Level 2.2 mg/dL (1.7-2.5) Total Bilirubin 0.6 mg/dL (0.0-1.2) Aspartate Amino Transf (AST/SGOT) 76 U/L (5-40) H Alanine Aminotransferase (ALT/SGPT) 83 U/L (3-41) H Alkaline Phosphatase 56 U/L (40-129) Total Creatine Kinase 464 U/L (38-174) H Total Protein 6.2 g/dL (6.6-8.7) L Albumin 3.2 g/dL (3.5-5.2) L Globulin 3.0 g/dL Albumin/Globulin Ratio 1.0 (1.0-2.7) Current Medications Medications (Trade) Dose Ordered Sig/Brad Route PRN Reason Start Time Stop Time Status Last Admin Dose Admin Acetaminophen (Tylenol) 650 mg Q4H PRN ORAL fever 07/13/16 20:00 08/12/16 19:59 Al Hydroxide/Mg Hydroxide (Mylanta II) 30 ml Q6H PRN ORAL dyspepsia 07/13/16 20:00 08/12/16 19:59 Albuterol/ Ipratropium (DuoNeb 0.5-3(2.5)mg/3ml) 3 ml Q4H PRN HHN Shortness of Breath 07/13/16 20:00 07/18/16 19:59 Amlodipine Besylate (Norvasc) 10 mg DAILY ORAL 07/14/16 09:00 08/13/16 08:59 07/14/16 10:05 Heparin Sodium (Porcine) (Heparin 5000 units/ml) 5,000 units EVERY 12 HOURS SUBQ 07/13/16 22:00 08/12/16 21:59 07/14/16 10:04 Nitroglycerin (Ntg) 0.4 mg Q5MIN X 3 DOSES PRN SL Prn Chest Pain 07/13/16 18:15 08/12/16 18:14 Ondansetron HCl (Zofran) 4 mg Q6H PRN IVP Nausea & Vomiting 1/20/17 20:00 08/12/16 19:59 Piperacillin Sod/ Tazobactam Sod/ Dextrose (Zosyn/D5W) 110 ml @ 27.5 mls/hr EVERY 8 HOURS IVPB 07/13/16 22:00 07/16/16 23:59 07/14/16 05:54 Polyethylene Glycol (Miralax) 17 gm DAILYPRN PRN ORAL Constipation 07/13/16 20:00 08/12/16 19:59 Promethazine HCl/ Codeine (Phenergan with Codeine) 5 ml Q4H PRN ORAL For Cough 07/13/16 20:00 08/12/16 19:59 Temazepam (Restoril) 15 mg HSPRN PRN ORAL Insomnia 07/13/16 20:00 07/20/16 19:59 Vancomycin HCl 1 ea 1 ea DAILY PRN MISC . 07/13/16 20:00 08/12/16 19:59 Vancomycin HCl/ Dextrose (Vancomycin/D5W) 275 ml @ 183.708 mls/hr Q8H IVPB 07/14/16 02:00 07/19/16 01:59 07/14/16 09:26 Cammy Garcia M.D. Jul 14, 2016 14:43
[2016-07-14 16:00] VITALS: BP 114/73
[2016-07-14] MEDS ORDERED: Tubing IV Secondary IV ONE (16:20)
[2016-07-14] MEDS ORDERED: NS 275ml ONE (16:20)
[2016-07-14 21:10] VITALS: BP 109/71
[2016-07-15] VITALS: BP 110/64
[2016-07-15 04:00] VITALS: BP 125/88
[2016-07-15] MEDS: Vancomycin 1250mg in D5W 275ml IVPB SCH ×3 (04:50→19:27)
--- NOTE | 2016-07-15 07:48 | General Progress Note ---
Assessment/Plan Problem List: (1) Diabetes ICD Codes: E11.9 - Type 2 diabetes mellitus without complications SNOMED: 66280381 (2) Asthma ICD Codes: J45.909 - Unspecified asthma, uncomplicated SNOMED: 903697576 (3) Elevated LFTs ICD Codes: R94.5 - Abnormal results of liver function studies SNOMED: 383033208 (4) HTN (hypertension) ICD Codes: I10 - Essential (primary) hypertension SNOMED: 74140740 Assessment/Plan repeat lfts>>> improving fu abd us out patient fu for GI procedures Subjective ROS Limited/Unobtainable: Yes Allergies: Coded Allergies: No Known Allergies (Unverified , 07/10/16) Subjective no event over night Objective Last 24 Hour Vital Signs Date Time Temp Pulse Resp B/P Pulse Ox O2 Delivery O2 Flow Rate FiO2 07/15/16 06:55 Nasal Cannula 2.0 28 07/15/16 06:55 94 Nasal Cannula 2.0 28 07/15/16 06:55 94 18 Nasal Cannula 2.0 28 07/15/16 04:00 97.9 95 20 125/88 96 Nasal Cannula 20.0 07/15/16 00:00 97.7 93 20 110/64 94 Nasal Cannula 2.0 07/14/16 21:10 97.7 18 109/71 94 Nasal Cannula 2.0 07/14/16 19:00 94 19 Nasal Cannula 2.0 28 07/14/16 19:00 94 Nasal Cannula 2.0 28 07/14/16 19:00 Nasal Cannula 2.0 28 07/14/16 16:00 97.3 92 20 114/73 97 Nasal Cannula 2.0 07/14/16 12:00 97.2 101 19 125/87 99 Nasal Cannula 2.0 07/14/16 10:05 74 128/91 07/14/16 09:55 97.4 102 21 128/91 97 Room Air Intake and Output 07/14/16 07/15/16 18:59 06:59 Intake Total 880 ml 607.416 ml Output Total 1700 ml 700 ml Balance -820 ml -92.584 ml Intake Oral 880 ml 240 ml IV Total 367.416 ml Output Urine Total 1700 ml 700 ml # Voids 5 Laboratory Tests 07/14/16 16:30: Urine Opiates Screen Negative, Urine Barbiturates Screen Negative, Phencyclidine (PCP) Screen Negative, Urine Amphetamines Screen Negative, Urine Benzodiazepines Screen Negative, Urine Cocaine Screen Negative, Urine Marijuana (THC) Screen Negative Height (Feet): 6 Height (Inches): 10.00 Weight (Pounds): 292 General Appearance: no apparent distress EENT: normal ENT inspection Neck: supple Cardiovascular: normal rate Respiratory/Chest: decreased breath sounds Abdomen: normal bowel sounds, non tender, soft Extremities: non-tender PITER DAVISON Jul 15, 2016 07:48
[2016-07-15 08:15] VITALS: BP 138/83
[2016-07-15 08:55] LABS: ALANINE AMINOTRANSFERASE 98 U/L (3-41); ALBUMIN/GLOBULIN RATIO 0.7 (1.0-2.7); ANION GAP 14 (5-15); ASPARTATE AMINO TRANSFERASE 86 U/L (5-40); CALCIUM 8.7 mg/dL (8.6-10.2); CARBON DIOXIDE 24 mEQ/L (20-30); CHLORIDE 103 mEQ/L (98-107); CREATININE 1.1 mg/dL (0.7-1.2); GLOMERULAR FILTRATION RATE > 60 mL/min (>60); HEMOLYSIS 0; POTASSIUM 3.8 mEQ/L (3.4-4.9); SODIUM 141 mEQ/L (135-145)
[2016-07-15] MEDS: Heparin 5000 units/ml inj SUBQ SCH ×2 (08:59→21:00)
[2016-07-15] MEDS: Piperacillin/Tazobactam 3.375 GM in D5W 110 ML IVPB SCH ×2 (09:00→16:08)
--- NOTE | 2016-07-15 09:16 | General Progress Note ---
Assessment/Plan Assessment/Plan ASSESSMENT: 1. Thrombocytopenia - improved, was likely 2/2 infection. 2. Sepsis - on IV abx 3. Pneumonia on abx 4. Leukocytosis - improving 5. Acute respiratory failure - better 6. Transaminitis due to shock enriqueta RECOMMENDATIONS: 1. Monitor platelet count 2. Maintain hemoglobin > 7 3. DVT prophylaxis prn 4. GI Prophylaxis as needed 6. staff Thank you, Marty Johns MD Subjective Constitutional: Reports: no symptoms HEENT: Reports: no symptoms Cardiovascular: Reports: no symptoms Respiratory: Reports: no symptoms Gastrointestinal/Abdominal: Reports: no symptoms Genitourinary: Reports: no symptoms Neurologic/Psychiatric: Reports: anxiety Endocrine: Reports: no symptoms Hematologic/Lymphatic: Reports: anemia Allergies: Coded Allergies: No Known Allergies (Unverified , 07/10/16) Subjective stable, no hematochezia, no bleeding Objective Last 24 Hour Vital Signs Date Time Temp Pulse Resp B/P Pulse Ox O2 Delivery O2 Flow Rate FiO2 07/15/16 08:59 97 138/83 07/15/16 08:15 98.3 97 21 138/83 97 Nasal Cannula 2.0 07/15/16 06:55 Nasal Cannula 2.0 28 07/15/16 06:55 94 Nasal Cannula 2.0 28 07/15/16 06:55 94 18 Nasal Cannula 2.0 28 07/15/16 04:00 97.9 95 20 125/88 96 Nasal Cannula 20.0 07/15/16 00:00 97.7 93 20 110/64 94 Nasal Cannula 2.0 07/14/16 21:10 97.7 18 109/71 94 Nasal Cannula 2.0 07/14/16 19:00 94 19 Nasal Cannula 2.0 28 07/14/16 19:00 94 Nasal Cannula 2.0 28 07/14/16 19:00 Nasal Cannula 2.0 28 07/14/16 16:00 97.3 92 20 114/73 97 Nasal Cannula 2.0 07/14/16 12:00 97.2 101 19 125/87 99 Nasal Cannula 2.0 07/14/16 10:05 74 128/91 07/14/16 09:55 97.4 102 21 128/91 97 Room Air Intake and Output 07/14/16 07/15/16 19:00 07:00 Intake Total 880 ml 607.416 ml Output Total 1700 ml 700 ml Balance -820 ml -92.584 ml Intake Oral 880 ml 240 ml IV Total 367.416 ml Output Urine Total 1700 ml 700 ml # Voids 5 Laboratory Tests 07/14/16 16:30: Urine Opiates Screen Negative, Urine Barbiturates Screen Negative, Phencyclidine (PCP) Screen Negative, Urine Amphetamines Screen Negative, Urine Benzodiazepines Screen Negative, Urine Cocaine Screen Negative, Urine Marijuana (THC) Screen Negative 07/15/16 05:50: Sodium Level [Pending], Potassium Level [Pending], Chloride Level [Pending], Carbon Dioxide Level [Pending], Anion Gap 14, Blood Urea Nitrogen [Pending], Creatinine [Pending], Estimat Glomerular Filtration Rate [Pending], Glucose Level [Pending], Calcium Level [Pending], Magnesium Level [Pending], Total Bilirubin 0.7, Aspartate Amino Transf (AST/SGOT) 86H, Alanine Aminotransferase ( ALT/SGPT) 98H, Alkaline Phosphatase 53, Total Protein 7.0, Albumin 3.0L, Globulin 4.0, Albumin/Globulin Ratio 0.7L Height (Feet): 6 Height (Inches): 10.00 Weight (Pounds): 292 General Appearance: no apparent distress EENT: TMs normal Neck: supple Cardiovascular: regular rhythm Respiratory/Chest: normal breath sounds Abdomen: no organomegaly Extremities: non-tender Edema: 1+ Leg (L), 1+ Leg (R) Edema: mild edema Neurologic: alert Skin: warm/dry MARTY JOHNS Jul 15, 2016 09:16
--- NOTE | 2016-07-15 09:39 | Diagnostic Imaging Report ---
Indication:Elevated liver function tests Technique: Grayscale and duplex Doppler imaging of the abdomen performed. Comparison: None Findings: The liver is echogenic and prominent measuring about 19 cm. The demonstrated part of the pancreas, gallbladder, aorta and IVC, both kidneys, spleen appear unremarkable. There is no biliary ductal dilatation identified. CBD is 5 mm. Doppler evaluation of the main portal vein shows patency. There is no ascites. No hydronephrosis seen. Impression: Hepatomegaly with fatty infiltration
--- NOTE | 2016-07-15 09:39 | Diagnostic Imaging Report ---
Indication: Chest pain Technique: Continuous helical transaxial imaging of the chest was obtained from the thoracic inlet to the upper abdomen. No intravenous contrast was administered. Coronal 2-D reformats were also obtained. Total Dose length Product (DLP): [address] Dose Index Volume (CTDIvol): 28 mGy Comparison: none Findings: . The prominent airspace disease noted focally in the left lower lobe and within posterior aspect of the left upper lobe. This characterized by dense consolidation some patchy groundglass opacification and air bronchograms. Findings most likely due to pneumonia. The right lung is clear except for some mild posterior basilar atelectasis. Tiny nodes are seen within the mediastinum and pulmonary trung. The heart is enlarged. Mild calcification of aorta demonstrated. Visualized part of the upper abdomen is unremarkable. Impression: Evidence of pneumonia involving the left lung as described above. The CT scanner at [facility] is accredited by the [employer] and the scans are performed using protocols designed to limit radiation exposure to as low as reasonably achievable to attain images of sufficient resolution adequate for diagnostic evaluation.
--- NOTE | 2016-07-15 11:43 | Pulmonology Progress Note ---
Assessment/Plan Assessment/Plan ASSESSMENT acute respiratory failure requiring BiPAP -resolved sepsis CAP asthma ATN rhabdo elevated LFT HTN PLAN OF CARE [place] floor weaned from BiPAP only at night and prn O2 HHN prn initial CXR with left perihilar infiltrate fup with CXR CT chest abx, sputum cx negative antitussive prn no evidence of asthma exacerbation, no need for steroids IVF ; push po GI follows trend LFT and CK, trending down renal parameters improved, creat down to normal ATN and elevated LFT likely 2 to rhabdo hepatitis panel negative GI prophylaxis DVT prophylaxis case discussed and evaluated by supervising physician Subjective Allergies: Coded Allergies: No Known Allergies (Unverified , 07/10/16) Subjective weaned to O2 via NC, off BiPAP on [place] floor no signs of respiratory distress deneis chest pain, SOB, reports generalized weakness Objective Last 24 Hour Vital Signs Date Time Temp Pulse Resp B/P Pulse Ox O2 Delivery O2 Flow Rate FiO2 07/15/16 08:59 97 138/83 07/15/16 08:15 98.3 97 21 138/83 97 Nasal Cannula 2.0 07/15/16 06:55 Nasal Cannula 2.0 28 07/15/16 06:55 94 Nasal Cannula 2.0 28 07/15/16 06:55 94 18 Nasal Cannula 2.0 28 07/15/16 04:00 97.9 95 20 125/88 96 Nasal Cannula 20.0 07/15/16 00:00 97.7 93 20 110/64 94 Nasal Cannula 2.0 07/14/16 21:10 97.7 18 109/71 94 Nasal Cannula 2.0 07/14/16 19:00 94 19 Nasal Cannula 2.0 28 07/14/16 19:00 94 Nasal Cannula 2.0 28 07/14/16 19:00 Nasal Cannula 2.0 28 07/14/16 16:00 97.3 92 20 114/73 97 Nasal Cannula 2.0 07/14/16 12:00 97.2 101 19 125/87 99 Nasal Cannula 2.0 Intake and Output 07/14/16 07/15/16 19:00 07:00 Intake Total 880 ml 607.416 ml Output Total 1700 ml 700 ml Balance -820 ml -92.584 ml Intake Oral 880 ml 240 ml IV Total 367.416 ml Output Urine Total 1700 ml 700 ml # Voids 5 Objective General Appearance: no acute distress HEENT: normocephalic, atraumatic, anicteric Respiratory/Chest: lungs clear, no respiratory distress, no accessory muscle use Cardiovascular: normal peripheral pulses, normal rate, regular rhythm Abdomen: normal bowel sounds, soft, non tender Genitourinary: normal external genitalia Neurologic/Psychiatric: alert, responsive Musculoskeletal: normal muscle bulk Laboratory Tests 07/14/16 16:30: Urine Opiates Screen Negative, Urine Barbiturates Screen Negative, Phencyclidine (PCP) Screen Negative, Urine Amphetamines Screen Negative, Urine Benzodiazepines Screen Negative, Urine Cocaine Screen Negative, Urine Marijuana (THC) Screen Negative 07/15/16 05:50: Sodium Level 141, Potassium Level 3.8, Chloride Level 103, Carbon Dioxide Level 24, Anion Gap 14, Blood Urea Nitrogen 12, Creatinine 1.1, Estimat Glomerular Filtration Rate > 60, Glucose Level 109H, Calcium Level 8.7, Magnesium Level 2.1 , Total Bilirubin 0.7, Aspartate Amino Transf (AST/SGOT) 86H, Alanine Aminotransferase (ALT/SGPT) 98H, Alkaline Phosphatase 53, Total Protein 7.0, Albumin 3.0L, Globulin 4.0, Albumin/Globulin Ratio 0.7L Current Medications Medications (Trade) Dose Ordered Sig/Brad Route PRN Reason Start Time Stop Time Status Last Admin Dose Admin Acetaminophen (Tylenol) 650 mg Q4H PRN ORAL fever 07/13/16 20:00 08/12/16 19:59 Al Hydroxide/Mg Hydroxide (Mylanta II) 30 ml Q6H PRN ORAL dyspepsia 07/13/16 20:00 08/12/16 19:59 Albuterol/ Ipratropium (DuoNeb 0.5-3(2.5)mg/3ml) 3 ml Q4H PRN HHN Shortness of Breath 07/13/16 20:00 07/18/16 19:59 Amlodipine Besylate (Norvasc) 10 mg DAILY ORAL 07/14/16 09:00 08/13/16 08:59 07/15/16 08:59 Heparin Sodium (Porcine) (Heparin 5000 units/ml) 5,000 units EVERY 12 HOURS SUBQ 07/13/16 22:00 08/12/16 21:59 07/15/16 08:59 Nitroglycerin (Ntg) 0.4 mg Q5MIN X 3 DOSES PRN SL Prn Chest Pain 07/13/16 18:15 08/12/16 18:14 Ondansetron HCl (Zofran) 4 mg Q6H PRN IVP Nausea & Vomiting 07/13/16 20:00 08/12/16 19:59 Piperacillin Sod/ Tazobactam Sod/ Dextrose (Zosyn/D5W) 110 ml @ 27.5 mls/hr Q8H IVPB 07/15/16 08:00 07/22/16 07:59 07/15/16 09:00 Polyethylene Glycol (Miralax) 17 gm DAILYPRN PRN ORAL Constipation 07/13/16 20:00 08/12/16 19:59 Promethazine HCl/ Codeine (Phenergan with Codeine) 5 ml Q4H PRN ORAL For Cough 07/13/16 20:00 08/12/16 19:59 Temazepam (Restoril) 15 mg HSPRN PRN ORAL Insomnia 07/13/16 20:00 07/20/16 19:59 Vancomycin HCl 1.25 gm/Dextrose 275 ml @ 183.708 mls/hr Q8H IVPB 07/14/16 02:00 07/19/16 01:59 07/15/16 04:50 Vancomycin HCl 1 ea 1 ea DAILY PRN MISC . 07/13/16 20:00 08/12/16 19:59 Tigre BustillosFrancine alonso NP Jul 15, 2016 11:43
[2016-07-15 11:49] VITALS: BP 123/67
--- NOTE | 2016-07-15 11:52 | General Progress Note ---
Assessment/Plan Problem List: (1) Diabetes ICD Codes: E11.9 - Type 2 diabetes mellitus without complications SNOMED: 05842277 (2) Acute respiratory failure ICD Codes: J96.00 - Acute respiratory failure, unspecified whether with hypoxia or hypercapnia SNOMED: 62409176 (3) Elevated LFTs ICD Codes: R94.5 - Abnormal results of liver function studies SNOMED: 531427398 (4) Pneumonia ICD Codes: J18.9 - Pneumonia, unspecified organism SNOMED: 098140961 (5) HTN (hypertension) ICD Codes: I10 - Essential (primary) hypertension SNOMED: 91233072 (6) MARIA FERNANDA (obstructive sleep apnea) ICD Codes: G47.33 - Obstructive sleep apnea (adult) (pediatric) SNOMED: 61986770 (7) CAP (community acquired pneumonia) ICD Codes: J18.9 - Pneumonia, unspecified organism SNOMED: 105954974 Status: progressing Assessment/Plan resp insuff pna imroving chf improving dc planning Subjective Respiratory: Reports: SOB with excertion Allergies: Coded Allergies: No Known Allergies (Unverified , 07/10/16) Objective Last 24 Hour Vital Signs Date Time Temp Pulse Resp B/P Pulse Ox O2 Delivery O2 Flow Rate FiO2 07/15/16 11:49 98.4 97 21 123/67 99 Room Air 07/15/16 08:59 97 138/83 07/15/16 08:15 98.3 97 21 138/83 97 Nasal Cannula 2.0 07/15/16 06:55 Nasal Cannula 2.0 28 07/15/16 06:55 94 Nasal Cannula 2.0 28 07/15/16 06:55 94 18 Nasal Cannula 2.0 28 07/15/16 04:00 97.9 95 20 125/88 96 Nasal Cannula 20.0 07/15/16 00:00 97.7 93 20 110/64 94 Nasal Cannula 2.0 07/14/16 21:10 97.7 18 109/71 94 Nasal Cannula 2.0 07/14/16 19:00 94 19 Nasal Cannula 2.0 28 07/14/16 19:00 94 Nasal Cannula 2.0 28 07/14/16 19:00 Nasal Cannula 2.0 28 07/14/16 16:00 97.3 92 20 114/73 97 Nasal Cannula 2.0 07/14/16 12:00 97.2 101 19 125/87 99 Nasal Cannula 2.0 Intake and Output 07/14/16 07/15/16 19:00 07:00 Intake Total 880 ml 607.416 ml Output Total 1700 ml 700 ml Balance -820 ml -92.584 ml Intake Oral 880 ml 240 ml IV Total 367.416 ml Output Urine Total 1700 ml 700 ml # Voids 5 Laboratory Tests 07/14/16 16:30: Urine Opiates Screen Negative, Urine Barbiturates Screen Negative, Phencyclidine (PCP) Screen Negative, Urine Amphetamines Screen Negative, Urine Benzodiazepines Screen Negative, Urine Cocaine Screen Negative, Urine Marijuana (THC) Screen Negative 07/15/16 05:50: Sodium Level 141, Potassium Level 3.8, Chloride Level 103, Carbon Dioxide Level 24, Anion Gap 14, Blood Urea Nitrogen 12, Creatinine 1.1, Estimat Glomerular Filtration Rate > 60, Glucose Level 109H, Calcium Level 8.7, Magnesium Level 2.1 , Total Bilirubin 0.7, Aspartate Amino Transf (AST/SGOT) 86H, Alanine Aminotransferase (ALT/SGPT) 98H, Alkaline Phosphatase 53, Total Protein 7.0, Albumin 3.0L, Globulin 4.0, Albumin/Globulin Ratio 0.7L Height (Feet): 6 Height (Inches): 10.00 Weight (Pounds): 292 Respiratory/Chest: rhonchi - bilaterally Jamel Vernon MD Jul 15, 2016 11:52
[2016-07-15 15:59] VITALS: BP 129/78
--- NOTE | 2016-07-15 16:08 | Infectious Diseases Prog Note ---
Assessment/Plan Problems: (1) CAP (community acquired pneumonia) Assessment & Plan: continue zosyn and vancomycin empirically for now, will switch to oral once clinically better, influenza screening is negative , blood culture and sputum culture are negative so far. (2) Sepsis Assessment & Plan: due to pneumonia, continue zosyn and vancomycin , await blood culture (3) Asthma Assessment & Plan: continue nebulizers and titrate oxygen to keep O2 sat >90 % (4) Acute respiratory failure Assessment & Plan: due to the above, continue nebulizers, and oxygen , monitor CXR, pulmonary is following (5) Elevated LFTs Assessment & Plan: suspect liver shock, hepatitis panel is negative , monitor LFT, avoid hepatotoxic meds Subjective Constitutional: Reports: fatigue Respiratory: Reports: productive cough Allergies: Coded Allergies: No Known Allergies (Unverified , 07/10/16) All Systems: reviewed and negative except above Subjective feels better, has less cough and SOB, no fever or chills. Objective Vital Signs Last 24 Hour Vital Signs Date Time Temp Pulse Resp B/P Pulse Ox O2 Delivery O2 Flow Rate FiO2 07/15/16 15:59 97.5 87 18 129/78 93 Room Air 07/15/16 11:49 98.4 97 21 123/67 99 Room Air 07/15/16 08:59 97 138/83 07/15/16 08:15 98.3 97 21 138/83 97 Nasal Cannula 2.0 07/15/16 06:55 Nasal Cannula 2.0 28 07/15/16 06:55 94 Nasal Cannula 2.0 28 07/15/16 06:55 94 18 Nasal Cannula 2.0 28 07/15/16 04:00 97.9 95 20 125/88 96 Nasal Cannula 20.0 07/15/16 00:00 97.7 93 20 110/64 94 Nasal Cannula 2.0 07/14/16 21:10 97.7 18 109/71 94 Nasal Cannula 2.0 07/14/16 19:00 94 19 Nasal Cannula 2.0 28 07/14/16 19:00 94 Nasal Cannula 2.0 28 07/14/16 19:00 Nasal Cannula 2.0 28 Height (Feet): 6 Height (Inches): 10.00 Weight (Pounds): 292 General Appearance: WD/WN, no acute distress HEENT: normocephalic, atraumatic, anicteric, mucous membranes moist Respiratory/Chest: chest wall non-tender, normal breath sounds, no respiratory distress, no accessory muscle use, decreased breath sounds, crackles/rales Cardiovascular: normal peripheral pulses, normal rate, regular rhythm, no gallop/murmur, no JVD Abdomen: normal bowel sounds, soft, non tender, no organomegaly, non distended , no mass, no scars Extremities: no cyanosis, no clubbing Skin: no rash, no lesions, no ulcers Laboratory Tests Test 07/14/16 16:30 07/15/16 05:50 Urine Opiates Screen Negative (NEGATIVE) Urine Barbiturates Screen Negative (NEGATIVE) Phencyclidine (PCP) Screen Negative (NEGATIVE) Urine Amphetamines Screen Negative (NEGATIVE) Urine Benzodiazepines Screen Negative (NEGATIVE) Urine Cocaine Screen Negative (NEGATIVE) Urine Marijuana (THC) Screen Negative (NEGATIVE) Sodium Level 141 mEQ/L (135-145) Potassium Level 3.8 mEQ/L (3.4-4.9) Chloride Level 103 mEQ/L (98-107) Carbon Dioxide Level 24 mEQ/L (20-30) Anion Gap 14 (5-15) Blood Urea Nitrogen 12 mg/dL (7-23) Creatinine 1.1 mg/dL (0.7-1.2) Estimat Glomerular Filtration Rate > 60 mL/min (>60) Glucose Level 109 mg/dL (74-106) H Calcium Level 8.7 mg/dL (8.6-10.2) Magnesium Level 2.1 mg/dL (1.7-2.5) Total Bilirubin 0.7 mg/dL (0.0-1.2) Aspartate Amino Transf (AST/SGOT) 86 U/L (5-40) H Alanine Aminotransferase (ALT/SGPT) 98 U/L (3-41) H Alkaline Phosphatase 53 U/L (40-129) Total Protein 7.0 g/dL (6.6-8.7) Albumin 3.0 g/dL (3.5-5.2) L Globulin 4.0 g/dL Albumin/Globulin Ratio 0.7 (1.0-2.7) L Current Medications Medications (Trade) Dose Ordered Sig/Brad Route PRN Reason Start Time Stop Time Status Last Admin Dose Admin Acetaminophen (Tylenol) 650 mg Q4H PRN ORAL fever 07/13/16 20:00 08/12/16 19:59 Al Hydroxide/Mg Hydroxide (Mylanta II) 30 ml Q6H PRN ORAL dyspepsia 07/13/16 20:00 08/12/16 19:59 Albuterol/ Ipratropium (DuoNeb 0.5-3(2.5)mg/3ml) 3 ml Q4H PRN HHN Shortness of Breath 07/13/16 20:00 07/18/16 19:59 Amlodipine Besylate (Norvasc) 10 mg DAILY ORAL 07/14/16 09:00 08/13/16 08:59 07/15/16 08:59 Heparin Sodium (Porcine) (Heparin 5000 units/ml) 5,000 units EVERY 12 HOURS SUBQ 07/13/16 22:00 08/12/16 21:59 07/15/16 08:59 Nitroglycerin (Ntg) 0.4 mg Q5MIN X 3 DOSES PRN SL Prn Chest Pain 07/13/16 18:15 08/12/16 18:14 Ondansetron HCl (Zofran) 4 mg Q6H PRN IVP Nausea & Vomiting 07/13/16 20:00 08/12/16 19:59 Piperacillin Sod/ Tazobactam Sod/ Dextrose (Zosyn/D5W) 110 ml @ 27.5 mls/hr Q8H IVPB 07/15/16 08:00 07/22/16 07:59 07/15/16 09:00 Polyethylene Glycol (Miralax) 17 gm DAILYPRN PRN ORAL Constipation 07/13/16 20:00 08/12/16 19:59 Promethazine HCl/ Codeine (Phenergan with Codeine) 5 ml Q4H PRN ORAL For Cough 07/13/16 20:00 08/12/16 19:59 Temazepam (Restoril) 15 mg HSPRN PRN ORAL Insomnia 07/13/16 20:00 07/20/16 19:59 Vancomycin HCl 1.25 gm/Dextrose 275 ml @ 183.708 mls/hr Q8H IVPB 07/14/16 02:00 07/19/16 01:59 07/15/16 13:03 Vancomycin HCl 1 ea 1 ea DAILY PRN MISC . 07/13/16 20:00 08/12/16 19:59 Cammy Garcia M.D. Jul 15, 2016 16:08
[2016-07-15 19:56] VITALS: BP 123/76
[2016-07-16] VITALS: BP 115/77
[2016-07-16] MEDS: Piperacillin/Tazobactam 3.375 GM in D5W 110 ML IVPB SCH ×3 (00:40→16:52)
[2016-07-16 04:00] VITALS: BP_SYST 112; BP_SYST 115; BP_DIAS 77; BP_DIAS 83
[2016-07-16] MEDS: Vancomycin 1250mg in D5W 275ml IVPB SCH ×2 (04:00→13:25)
[2016-07-16 07:37] LABS: BASOPHILS % (AUTO) 1.8 % (0.0-2.0); EOSINOPHILS % (AUTO) 2.7 % (0.0-3.0); LYMPHOCYTES % (AUTO) 12.4 % (20.0-45.0); MEAN CORPUSCULAR HEMOGLOBIN 29.5 PG (27.0-31.0); MEAN CORPUSCULAR HGB CONC 32.2 G/DL (32.0-36.0); MEAN CORPUSCULAR VOLUME 91 FL (80-99); MEAN PLATELET VOLUME 6.9 FL (6.5-10.1); MONOCYTES % (AUTO) 8.2 % (1.0-10.0); PLATELET COUNT 403 K/UL (150-450); RED BLOOD COUNT 4.53 M/UL (4.70-6.10); RED CELL DISTRIBUTION WIDTH 12.5 % (11.6-14.8); WHITE BLOOD COUNT 12.9 K/UL (4.8-10.8)
[2016-07-16 07:58] LABS: ANION GAP 15 (5-15); CARBON DIOXIDE 25 mEQ/L (20-30); CHLORIDE 101 mEQ/L (98-107); CREATININE 2.3 mg/dL (0.7-1.2); GLOMERULAR FILTRATION RATE 36.1 mL/min (>60); HEMOLYSIS 3; POTASSIUM 3.7 mEQ/L (3.4-4.9); SODIUM 141 mEQ/L (135-145)
[2016-07-16 08:00] VITALS: BP 139/94
[2016-07-16] MEDS: Heparin 5000 units/ml inj SUBQ SCH ×2 (08:44→20:43)
[2016-07-16 12:01] VITALS: BP 130/85
--- NOTE | 2016-07-16 14:16 | General Progress Note ---
Assessment/Plan Problem List: (1) Diabetes ICD Codes: E11.9 - Type 2 diabetes mellitus without complications SNOMED: 78833280 (2) Acute respiratory failure ICD Codes: J96.00 - Acute respiratory failure, unspecified whether with hypoxia or hypercapnia SNOMED: 60596662 (3) Elevated LFTs ICD Codes: R94.5 - Abnormal results of liver function studies SNOMED: 633631539 (4) Pneumonia ICD Codes: J18.9 - Pneumonia, unspecified organism SNOMED: 216930303 (5) HTN (hypertension) ICD Codes: I10 - Essential (primary) hypertension SNOMED: 15558654 (6) MARIA FERNANDA (obstructive sleep apnea) ICD Codes: G47.33 - Obstructive sleep apnea (adult) (pediatric) SNOMED: 28623502 (7) CAP (community acquired pneumonia) ICD Codes: J18.9 - Pneumonia, unspecified organism SNOMED: 840876930 Status: progressing Assessment/Plan resp insuff pna improving afebrile sob is improving vitals stable reviewed chart and labs Subjective ROS Limited/Unobtainable: Yes Constitutional: Reports: no symptoms Allergies: Coded Allergies: No Known Allergies (Unverified , 07/10/16) Objective Last 24 Hour Vital Signs Date Time Temp Pulse Resp B/P Pulse Ox O2 Delivery O2 Flow Rate FiO2 07/16/16 12:01 97.7 90 20 130/85 95 Room Air 07/16/16 08:43 90 139/94 07/16/16 08:00 98.2 90 18 139/94 97 Room Air 07/16/16 06:55 Room Air 07/16/16 06:55 98 20 Room Air 2.0 07/16/16 06:55 93 Room Air 07/16/16 04:00 98.2 105 18 112/83 96 Room Air 07/16/16 00:00 97.7 98 20 115/77 97 Room Air 07/15/16 21:33 Nasal Cannula 2.0 28 07/15/16 21:33 94 Nasal Cannula 2.0 28 07/15/16 21:23 95 18 Nasal Cannula 2.0 28 07/15/16 19:56 98.2 86 20 123/76 95 Room Air 07/15/16 15:59 97.5 87 18 129/78 93 Room Air Intake and Output 07/15/16 07/16/16 19:00 07:00 Intake Total 495.000 ml 1127.416 ml Output Total 300 ml Balance 495.000 ml 827.416 ml Intake Oral 650 ml IV Total 495.000 ml 477.416 ml Output Urine Total 300 ml # Voids 3 # Bowel Movements 1 Laboratory Tests 07/16/16 06:55: White Blood Count 12.9H, Red Blood Count 4.53L, Hemoglobin 13.3L, Hematocrit 41.4L, Mean Corpuscular Volume 91, Mean Corpuscular Hemoglobin 29.5, Mean Corpuscular Hemoglobin Concent 32.2, Red Cell Distribution Width 12.5, Platelet Count 403, Mean Platelet Volume 6.9, Neutrophils (%) (Auto) 75.0, Lymphocytes (% ) (Auto) 12.4L, Monocytes (%) (Auto) 8.2, Eosinophils (%) (Auto) 2.7, Basophils (%) (Auto) 1.8, Sodium Level 141, Potassium Level 3.7, Chloride Level 101, Carbon Dioxide Level 25, Anion Gap 15, Blood Urea Nitrogen 21, Creatinine 2.3#H , Estimat Glomerular Filtration Rate 36.1, Glucose Level 117H, Calcium Level 9.0 , Total Creatine Kinase 203H Height (Feet): 6 Height (Inches): 10.00 Weight (Pounds): 292 Neck: non-tender Cardiovascular: normal rate Abdomen: soft Jamel Vernon MD Jul 16, 2016 14:16
--- NOTE | 2016-07-16 15:36 | General Progress Note ---
Assessment/Plan Assessment/Plan ASSESSMENT: 1. Thrombocytopenia - improved, was likely 2/2 infection. 2. Anemia 2/2 chronic disease - mild 3. Pneumonia on abx 4. Leukocytosis - mild, continue to monitor 5. Acute respiratory failure - better 6. Transaminitis due to shock likley 7. Sepsis - on IV abx RECOMMENDATIONS: 1. Monitor platelet count 2. Maintain hemoglobin > 7 3. DVT prophylaxis heparin sq 4. GI Prophylaxis as needed 6. staff Thank you, River oJhns MD Subjective Constitutional: Reports: no symptoms HEENT: Reports: no symptoms Cardiovascular: Reports: no symptoms Respiratory: Reports: no symptoms Gastrointestinal/Abdominal: Reports: poor appetite Genitourinary: Reports: no symptoms Neurologic/Psychiatric: Reports: no symptoms Endocrine: Reports: no symptoms Hematologic/Lymphatic: Reports: anemia Allergies: Coded Allergies: No Known Allergies (Unverified , 07/10/16) Subjective no bleeding, no hematochezia, has been less shortness of breath Objective Last 24 Hour Vital Signs Date Time Temp Pulse Resp B/P Pulse Ox O2 Delivery O2 Flow Rate FiO2 07/16/16 12:01 97.7 90 20 130/85 95 Room Air 07/16/16 08:43 90 139/94 07/16/16 08:00 98.2 90 18 139/94 97 Room Air 07/16/16 06:55 Room Air 07/16/16 06:55 98 20 Room Air 2.0 28 07/16/16 06:55 93 Room Air 07/16/16 04:00 98.2 105 18 112/83 96 Room Air 07/16/16 00:00 97.7 98 20 115/77 97 Room Air 07/15/16 21:33 Nasal Cannula 2.0 28 07/15/16 21:33 94 Nasal Cannula 2.0 28 07/15/16 21:23 95 18 Nasal Cannula 2.0 28 07/15/16 19:56 98.2 86 20 123/76 95 Room Air 07/15/16 15:59 97.5 87 18 129/78 93 Room Air Intake and Output 07/15/16 07/16/16 19:00 07:00 Intake Total 495.000 ml 1127.416 ml Output Total 300 ml Balance 495.000 ml 827.416 ml Intake Oral 650 ml IV Total 495.000 ml 477.416 ml Output Urine Total 300 ml # Voids 3 # Bowel Movements 1 Laboratory Tests 07/16/16 06:55: White Blood Count 12.9H, Red Blood Count 4.53L, Hemoglobin 13.3L, Hematocrit 41.4L, Mean Corpuscular Volume 91, Mean Corpuscular Hemoglobin 29.5, Mean Corpuscular Hemoglobin Concent 32.2, Red Cell Distribution Width 12.5, Platelet Count 403, Mean Platelet Volume 6.9, Neutrophils (%) (Auto) 75.0, Lymphocytes (% ) (Auto) 12.4L, Monocytes (%) (Auto) 8.2, Eosinophils (%) (Auto) 2.7, Basophils (%) (Auto) 1.8, Sodium Level 141, Potassium Level 3.7, Chloride Level 101, Carbon Dioxide Level 25, Anion Gap 15, Blood Urea Nitrogen 21, Creatinine 2.3#H , Estimat Glomerular Filtration Rate 36.1, Glucose Level 117H, Calcium Level 9.0 , Total Creatine Kinase 203H Height (Feet): 6 Height (Inches): 10.00 Weight (Pounds): 292 General Appearance: no apparent distress EENT: TMs normal Neck: supple Cardiovascular: regular rhythm Respiratory/Chest: lungs clear Abdomen: no mass Extremities: normal range of motion Edema: 1+ Leg (L), 1+ Leg (R) Edema: mild edema Neurologic: alert Skin: warm/dry River Johns Jul 16, 2016 15:36
[2016-07-16 16:00] VITALS: BP 128/89
--- NOTE | 2016-07-16 17:24 | Infectious Diseases Prog Note ---
Assessment/Plan Problems: (1) CAP (community acquired pneumonia) Assessment & Plan: continue zosyn and vancomycin empirically for now, since his sputum culture is negative, will switch to oral once clinically better, influenza screening is negative , blood culture and sputum culture are negative so far. (2) Sepsis Assessment & Plan: due to pneumonia, continue zosyn and vancomycin (3) Asthma Assessment & Plan: continue nebulizers and titrate oxygen to keep O2 sat >90 % (4) Acute respiratory failure Assessment & Plan: due to the above, continue nebulizers, and oxygen , monitor CXR, pulmonary is following (5) Elevated LFTs Assessment & Plan: suspect liver shock, hepatitis panel is negative , monitor LFT, avoid hepatotoxic meds (6) DOMINIC (acute kidney injury) Assessment & Plan: hold vancomycin and check level, continue IVF for hydration , monitor renal function Subjective Constitutional: Denies: anorexia, chills, drenching sweats, fatigue, fever, no symptoms, other HEENT: Denies: congestion, coryza, dysphagia, hearing change, no symptoms, other, visual change Respiratory: Reports: dry cough Breasts: Denies: discharge, no symptoms, other, swelling, tenderness Cardiovascular: Denies: chest pain, dyspnea on exertion, no symptoms, other, palpitations Gastrointestinal/Abdominal: Denies: bloating, blood in stool, constipation, diarrhea, nausea, no symptoms, other, vomiting Genitourinary: Denies: dysuria, frequency, hematuria, no symptoms, nocturia, other Neurologic: Denies: confusion, headache, no symptoms, numbness, other, weakness Psychiatric: Denies: anxiety, depression, no symptoms, other Skin: Denies: no symptoms, other, rash, ulcer Endocrine: Denies: feels cold, feels warm, no symptoms, other Allergies: Coded Allergies: No Known Allergies (Unverified , 07/10/16) Subjective he was doing well today, denied any symptoms. Objective Vital Signs Last 24 Hour Vital Signs Date Time Temp Pulse Resp B/P Pulse Ox O2 Delivery O2 Flow Rate FiO2 07/16/16 17:09 97.0 07/16/16 16:00 100.0 89 19 128/89 96 Room Air 07/16/16 12:01 97.7 90 20 130/85 95 Room Air 07/16/16 08:43 90 139/94 07/16/16 08:00 98.2 90 18 139/94 97 Room Air 07/16/16 06:55 Room Air 21 07/16/16 06:55 98 20 Room Air 2.0 28 07/16/16 06:55 93 Room Air 21 07/16/16 04:00 98.2 105 18 112/83 96 Room Air 07/16/16 00:00 97.7 98 20 115/77 97 Room Air 07/15/16 21:33 Nasal Cannula 2.0 28 07/15/16 21:33 94 Nasal Cannula 2.0 28 07/15/16 21:23 95 18 Nasal Cannula 2.0 28 07/15/16 19:56 98.2 86 20 123/76 95 Room Air Height (Feet): 6 Height (Inches): 10.00 Weight (Pounds): 292 General Appearance: WD/WN, no acute distress HEENT: normocephalic, atraumatic, anicteric, mucous membranes moist Respiratory/Chest: chest wall non-tender, normal breath sounds, no respiratory distress, no accessory muscle use, decreased breath sounds, expiratory wheezing Cardiovascular: normal peripheral pulses, normal rate, regular rhythm, no gallop/murmur, no JVD Abdomen: normal bowel sounds, soft, non tender, no organomegaly, non distended , no mass, no scars Extremities: no cyanosis, no clubbing Skin: no rash, no lesions, no ulcers Laboratory Tests Test 07/16/16 06:55 White Blood Count 12.9 K/UL (4.8-10.8) H Red Blood Count 4.53 M/UL (4.70-6.10) L Hemoglobin 13.3 G/DL (14.2-18.0) L Hematocrit 41.4 % (42.0-52.0) L Mean Corpuscular Volume 91 FL (80-99) Mean Corpuscular Hemoglobin 29.5 PG (27.0-31.0) Mean Corpuscular Hemoglobin Concent 32.2 G/DL (32.0-36.0) Red Cell Distribution Width 12.5 % (11.6-14.8) Platelet Count 403 K/UL (150-450) Mean Platelet Volume 6.9 FL (6.5-10.1) Neutrophils (%) (Auto) 75.0 % (45.0-75.0) Lymphocytes (%) (Auto) 12.4 % (20.0-45.0) L Monocytes (%) (Auto) 8.2 % (1.0-10.0) Eosinophils (%) (Auto) 2.7 % (0.0-3.0) Basophils (%) (Auto) 1.8 % (0.0-2.0) Sodium Level 141 mEQ/L (135-145) Potassium Level 3.7 mEQ/L (3.4-4.9) Chloride Level 101 mEQ/L (98-107) Carbon Dioxide Level 25 mEQ/L (20-30) Anion Gap 15 (5-15) Blood Urea Nitrogen 21 mg/dL (7-23) Creatinine 2.3 mg/dL (0.7-1.2) #H Estimat Glomerular Filtration Rate 36.1 mL/min (>60) Glucose Level 117 mg/dL (74-106) H Calcium Level 9.0 mg/dL (8.6-10.2) Total Creatine Kinase 203 U/L (38-174) H Current Medications Medications (Trade) Dose Ordered Sig/Brad Route PRN Reason Start Time Stop Time Status Last Admin Dose Admin Acetaminophen (Tylenol) 650 mg Q4H PRN ORAL fever 07/13/16 20:00 08/12/16 19:59 Al Hydroxide/Mg Hydroxide (Mylanta II) 30 ml Q6H PRN ORAL dyspepsia 07/13/16 20:00 08/12/16 19:59 Albuterol/ Ipratropium (DuoNeb 0.5-3(2.5)mg/3ml) 3 ml Q4H PRN HHN Shortness of Breath 07/13/16 20:00 07/18/16 19:59 Amlodipine Besylate (Norvasc) 10 mg DAILY ORAL 07/14/16 09:00 08/13/16 08:59 07/16/16 08:43 Heparin Sodium (Porcine) (Heparin 5000 units/ml) 5,000 units EVERY 12 HOURS SUBQ 07/13/16 22:00 08/12/16 21:59 07/16/16 08:44 Nitroglycerin (Ntg) 0.4 mg Q5MIN X 3 DOSES PRN SL Prn Chest Pain 07/13/16 18:15 2/19/17 18:14 Ondansetron HCl (Zofran) 4 mg Q6H PRN IVP Nausea & Vomiting 07/13/16 20:00 08/12/16 19:59 Piperacillin Sod/ Tazobactam Sod/ Dextrose (Zosyn/D5W) 110 ml @ 27.5 mls/hr Q8H IVPB 07/15/16 08:00 07/22/16 07:59 07/16/16 16:52 Polyethylene Glycol (Miralax) 17 gm DAILYPRN PRN ORAL Constipation 07/13/16 20:00 08/12/16 19:59 Promethazine HCl/ Codeine (Phenergan with Codeine) 5 ml Q4H PRN ORAL For Cough 07/13/16 20:00 08/12/16 19:59 Temazepam (Restoril) 15 mg HSPRN PRN ORAL Insomnia 07/13/16 20:00 07/20/16 19:59 Vancomycin HCl 1 ea 1 ea DAILY PRN MISC . 07/13/16 20:00 08/12/16 19:59 Cammy Garcia M.D. Jul 16, 2016 17:24
--- NOTE | 2016-07-16 18:12 | Pulmonology Progress Note ---
Assessment/Plan Problems: (1) Acute respiratory failure (2) Pneumonia (3) Sepsis (4) ATN (acute tubular necrosis) (5) Elevated LFTs Assessment/Plan renal function worse renal w/u no sputum yet sputum negative check wbc Subjective ROS Limited/Unobtainable: No Constitutional: Reports: no symptoms HEENT: Repors: no symptoms Respiratory: Reports: no symptoms Cardiovascular: Reports: no symptoms Gastrointestinal/Abdominal: Reports: no symptoms Allergies: Coded Allergies: No Known Allergies (Unverified , 07/10/16) Objective Last 24 Hour Vital Signs Date Time Temp Pulse Resp B/P Pulse Ox O2 Delivery O2 Flow Rate FiO2 07/16/16 17:09 97.0 07/16/16 16:00 100.0 89 19 128/89 96 Room Air 07/16/16 12:01 97.7 90 20 130/85 95 Room Air 07/16/16 08:43 90 139/94 07/16/16 08:00 98.2 90 18 139/94 97 Room Air 07/16/16 06:55 Room Air 07/16/16 06:55 98 20 Room Air 2.0 28 07/16/16 06:55 93 Room Air 21 07/16/16 04:00 98.2 105 18 112/83 96 Room Air 07/16/16 00:00 97.7 98 20 115/77 97 Room Air 07/15/16 21:33 Nasal Cannula 2.0 28 07/15/16 21:33 94 Nasal Cannula 2.0 28 07/15/16 21:23 95 18 Nasal Cannula 2.0 28 07/15/16 19:56 98.2 86 20 123/76 95 Room Air Intake and Output 07/15/16 07/16/16 19:00 07:00 Intake Total 495.000 ml 1127.416 ml Output Total 300 ml Balance 495.000 ml 827.416 ml Intake Oral 650 ml IV Total 495.000 ml 477.416 ml Output Urine Total 300 ml # Voids 3 # Bowel Movements 1 General Appearance: WD/WN HEENT: normocephalic Respiratory/Chest: chest wall non-tender, lungs clear Cardiovascular: normal peripheral pulses, normal rate Abdomen: normal bowel sounds, soft, non tender Extremities: no clubbing Skin: no lesions Laboratory Tests 07/16/16 06:55: White Blood Count 12.9H, Red Blood Count 4.53L, Hemoglobin 13.3L, Hematocrit 41.4L, Mean Corpuscular Volume 91, Mean Corpuscular Hemoglobin 29.5, Mean Corpuscular Hemoglobin Concent 32.2, Red Cell Distribution Width 12.5, Platelet Count 403, Mean Platelet Volume 6.9, Neutrophils (%) (Auto) 75.0, Lymphocytes (% ) (Auto) 12.4L, Monocytes (%) (Auto) 8.2, Eosinophils (%) (Auto) 2.7, Basophils (%) (Auto) 1.8, Sodium Level 141, Potassium Level 3.7, Chloride Level 101, Carbon Dioxide Level 25, Anion Gap 15, Blood Urea Nitrogen 21, Creatinine 2.3#H , Estimat Glomerular Filtration Rate 36.1, Glucose Level 117H, Calcium Level 9.0 , Total Creatine Kinase 203H Current Medications Medications (Trade) Dose Ordered Sig/Brad Route PRN Reason Start Time Stop Time Status Last Admin Dose Admin Acetaminophen (Tylenol) 650 mg Q4H PRN ORAL fever 07/13/16 20:00 08/12/16 19:59 Al Hydroxide/Mg Hydroxide (Mylanta II) 30 ml Q6H PRN ORAL dyspepsia 07/13/16 20:00 08/12/16 19:59 Albuterol/ Ipratropium (DuoNeb 0.5-3(2.5)mg/3ml) 3 ml Q4H PRN HHN Shortness of Breath 07/13/16 20:00 07/18/16 19:59 Amlodipine Besylate (Norvasc) 10 mg DAILY ORAL 07/14/16 09:00 08/13/16 08:59 07/16/16 08:43 Heparin Sodium (Porcine) (Heparin 5000 units/ml) 5,000 units EVERY 12 HOURS SUBQ 07/13/16 22:00 08/12/16 21:59 07/16/16 08:44 Nitroglycerin (Ntg) 0.4 mg Q5MIN X 3 DOSES PRN SL Prn Chest Pain 07/13/16 18:15 08/12/16 18:14 Ondansetron HCl (Zofran) 4 mg Q6H PRN IVP Nausea & Vomiting 07/13/16 20:00 08/12/16 19:59 Piperacillin Sod/ Tazobactam Sod/ Dextrose (Zosyn/D5W) 110 ml @ 27.5 mls/hr Q8H IVPB 07/15/16 08:00 07/22/16 07:59 07/16/16 16:52 Polyethylene Glycol (Miralax) 17 gm DAILYPRN PRN ORAL Constipation 07/13/16 20:00 08/12/16 19:59 Promethazine HCl/ Codeine (Phenergan with Codeine) 5 ml Q4H PRN ORAL For Cough 07/13/16 20:00 08/12/16 19:59 Temazepam (Restoril) 15 mg HSPRN PRN ORAL Insomnia 07/13/16 20:00 07/20/16 19:59 Vancomycin HCl 1 ea 1 ea DAILY PRN MISC . 07/13/16 20:00 08/12/16 19:59 BRINA BRAGG Jul 16, 2016 18:12
--- NOTE | 2016-07-16 19:46 | General Progress Note ---
Assessment/Plan Assessment/Plan Assessment - abnormal LFT - fatty liver - elevated CK / rhabdo - PNA - Sepsis - Azotemia Recommendations - hydration - follow labs - abx - push po - follow LFT Subjective Allergies: Coded Allergies: No Known Allergies (Unverified , 07/10/16) Subjective Feels OK no abdominal pain U/s noted --> fatty liver Objective Last 24 Hour Vital Signs Date Time Temp Pulse Resp B/P Pulse Ox O2 Delivery O2 Flow Rate FiO2 07/16/16 17:09 97.0 07/16/16 16:00 100.0 89 19 128/89 96 Room Air 07/16/16 12:01 97.7 90 20 130/85 95 Room Air 07/16/16 08:43 90 139/94 07/16/16 08:00 98.2 90 18 139/94 97 Room Air 07/16/16 06:55 Room Air 21 07/16/16 06:55 98 20 Room Air 2.0 28 07/16/16 06:55 93 Room Air 21 07/16/16 04:00 98.2 105 18 112/83 96 Room Air 07/16/16 00:00 97.7 98 20 115/77 97 Room Air 07/15/16 21:33 Nasal Cannula 2.0 28 07/15/16 21:33 94 Nasal Cannula 2.0 28 07/15/16 21:23 95 18 Nasal Cannula 2.0 28 07/15/16 19:56 98.2 86 20 123/76 95 Room Air Intake and Output 07/15/16 07/16/16 19:00 07:00 Intake Total 495.000 ml 1127.416 ml Output Total 300 ml Balance 495.000 ml 827.416 ml Intake Oral 650 ml IV Total 495.000 ml 477.416 ml Output Urine Total 300 ml # Voids 3 # Bowel Movements 1 Laboratory Tests 07/16/16 06:55: White Blood Count 12.9H, Red Blood Count 4.53L, Hemoglobin 13.3L, Hematocrit 41.4L, Mean Corpuscular Volume 91, Mean Corpuscular Hemoglobin 29.5, Mean Corpuscular Hemoglobin Concent 32.2, Red Cell Distribution Width 12.5, Platelet Count 403, Mean Platelet Volume 6.9, Neutrophils (%) (Auto) 75.0, Lymphocytes (% ) (Auto) 12.4L, Monocytes (%) (Auto) 8.2, Eosinophils (%) (Auto) 2.7, Basophils (%) (Auto) 1.8, Sodium Level 141, Potassium Level 3.7, Chloride Level 101, Carbon Dioxide Level 25, Anion Gap 15, Blood Urea Nitrogen 21, Creatinine 2.3#H , Estimat Glomerular Filtration Rate 36.1, Glucose Level 117H, Calcium Level 9.0 , Total Creatine Kinase 203H Height (Feet): 6 Height (Inches): 10.00 Weight (Pounds): 292 Objective obese AA man NCAT supple CTA RRR soft NT ND no edema MARTA LINARES Jul 16, 2016 19:46
[2016-07-16 20:00] VITALS: BP 118/72
[2016-07-16 21:43] LABS: ALANINE AMINOTRANSFERASE 89 U/L (3-41); ALBUMIN/GLOBULIN RATIO 0.8 (1.0-2.7); ANION GAP 14 (5-15); ASPARTATE AMINO TRANSFERASE 71 U/L (5-40); CARBON DIOXIDE 27 mEQ/L (20-30); CHLORIDE 102 mEQ/L (98-107); GLOMERULAR FILTRATION RATE 26.5 mL/min (>60); HEMOLYSIS 3; MAGNESIUM 2.5 mg/dL (1.7-2.5); PHOSPHORUS 4.1 mg/dL (2.5-4.8); POTASSIUM 3.9 mEQ/L (3.4-4.9); SODIUM 143 mEQ/L (135-145); TOTAL PROTEIN 7.3 g/dL (6.6-8.7); URIC ACID 5.5 mg/dL (3.0-7.5)
[2016-07-16 22:16] LABS: FREE T3 2.3 pg/mL (2.3-4.2)
[2016-07-17] VITALS: BP 145/96
[2016-07-17] MEDS: Piperacillin/Tazobactam 3.375 GM in D5W 110 ML IVPB SCH ×3 (00:45→16:00)
[2016-07-17 03:32] LABS: APPEARANCE,URINE CLEAR; KETONES,URINE NEGATIVE (NEGATIVE); LEUKOCYTE ESTERASE ,URINE NEGATIVE (NEGATIVE); NITRITE,URINE NEGATIVE (NEGATIVE); PH,URINE 6.5 (4.5-8.0); PROTEIN,URINE NEGATIVE (NEGATIVE); UROBILINOGEN,URINE NORMAL MG/DL (0.0-1.0)
[2016-07-17 03:39] LABS: RBC,URINE 0-2 /HPF (0 - 0); WBC,URINE 0 /HPF (0 - 0)
[2016-07-17 03:40] LABS: SQUAMOUS EPITHELIAL CELL,UR FEW /LPF (NONE/OCC)
[2016-07-17 04:00] VITALS: BP 140/88
[2016-07-17 07:29] LABS: BASOPHILS % (AUTO) 1.8 % (0.0-2.0); EOSINOPHILS % (AUTO) 1.8 % (0.0-3.0); LYMPHOCYTES % (AUTO) 14.3 % (20.0-45.0); MEAN CORPUSCULAR HEMOGLOBIN 29.7 PG (27.0-31.0); MEAN CORPUSCULAR HGB CONC 32.8 G/DL (32.0-36.0); MEAN CORPUSCULAR VOLUME 90 FL (80-99); MEAN PLATELET VOLUME 6.5 FL (6.5-10.1); MONOCYTES % (AUTO) 6.9 % (1.0-10.0); NEUTROPHILS % (AUTO) 75.2 % (45.0-75.0); PLATELET COUNT 458 K/UL (150-450); RED CELL DISTRIBUTION WIDTH 12.4 % (11.6-14.8); WHITE BLOOD COUNT 12.7 K/UL (4.8-10.8)
[2016-07-17 07:49] LABS: CRP QUANT 5.8 mg/dL (< 0.5); MAGNESIUM 2.5 mg/dL (1.7-2.5); PHOSPHORUS 4.3 mg/dL (2.5-4.8); URIC ACID 5.9 mg/dL (3.0-7.5)
[2016-07-17 08:00] VITALS: BP 147/92
[2016-07-17 08:00] LABS: ALBUMIN/GLOBULIN RATIO 0.8 (1.0-2.7); CALCIUM 8.7 mg/dL (8.6-10.2); CREATININE 3.2 mg/dL (0.7-1.2); GLOMERULAR FILTRATION RATE 24.6 mL/min (>60); POTASSIUM 4.3 mEQ/L (3.4-4.9); TOTAL PROTEIN 6.6 g/dL (6.6-8.7)
[2016-07-17] MEDS: Heparin 5000 units/ml inj SUBQ SCH ×3 (08:58→20:23)
[2016-07-17 12:00] VITALS: BP 124/72
--- NOTE | 2016-07-17 12:05 | Diagnostic Imaging Report ---
Indication: DYSPNEA Technique: One view of the chest Comparison: 07/10/2016 Findings: Previously demonstrated left midlung consolidation as improved considerably, but there is some residual parenchymal opacity still present. Right lung, bilateral pleural spaces remain clear Impression: Markedly improved left lung consolidation, with evidence of some residual infiltrate
--- NOTE | 2016-07-17 14:56 | General Progress Note ---
Assessment/Plan Problem List: (1) Diabetes ICD Codes: E11.9 - Type 2 diabetes mellitus without complications SNOMED: 95268561 (2) Acute respiratory failure ICD Codes: J96.00 - Acute respiratory failure, unspecified whether with hypoxia or hypercapnia SNOMED: 92655561 (3) Elevated LFTs ICD Codes: R94.5 - Abnormal results of liver function studies SNOMED: 683731314 (4) Pneumonia ICD Codes: J18.9 - Pneumonia, unspecified organism SNOMED: 215348595 (5) HTN (hypertension) ICD Codes: I10 - Essential (primary) hypertension SNOMED: 02183213 (6) MARIA FERNANDA (obstructive sleep apnea) ICD Codes: G47.33 - Obstructive sleep apnea (adult) (pediatric) SNOMED: 84133317 (7) CAP (community acquired pneumonia) ICD Codes: J18.9 - Pneumonia, unspecified organism SNOMED: 611840796 Status: progressing Assessment/Plan worsening azotemia not ready for dc due to worsening renal function dr denise is aware Subjective ROS Limited/Unobtainable: Yes Constitutional: Reports: no symptoms Allergies: Coded Allergies: No Known Allergies (Unverified , 07/10/16) Objective Last 24 Hour Vital Signs Date Time Temp Pulse Resp B/P Pulse Ox O2 Delivery O2 Flow Rate FiO2 07/17/16 12:00 97.7 85 20 124/72 95 Room Air 07/17/16 08:52 90 147/92 07/17/16 08:00 97.2 90 24 147/92 97 Room Air 07/17/16 04:00 98.1 89 20 140/88 96 Room Air 07/17/16 00:00 97.9 95 20 145/96 97 Room Air 07/16/16 20:00 98.2 74 16 118/72 95 Room Air 07/16/16 19:30 90 20 Room Air 21 07/16/16 19:30 Room Air 21 07/16/16 19:30 96 Room Air 21 07/16/16 17:09 97.0 07/16/16 16:00 100.0 89 19 128/89 96 Room Air Intake and Output 07/16/16 07/17/16 19:00 07:00 Intake Total 533.708 ml 360 ml Output Total 600 ml 1200 ml Balance -66.292 ml -840 ml Intake Oral 240 ml 360 ml IV Total 293.708 ml Output Urine Total 600 ml 1200 ml # Voids 2 3 # Bowel Movements 2 Laboratory Tests 07/16/16 20:50: Sodium Level 143, Potassium Level 3.9, Chloride Level 102, Carbon Dioxide Level 27, Anion Gap 14, Blood Urea Nitrogen 25H, Creatinine 3.0H, Estimat Glomerular Filtration Rate 26.5, Glucose Level 114H, Plasma/Serum Osmolality [Pending], Uric Acid 5.5, Calcium Level 9.0, Phosphorus Level 4.1, Magnesium Level 2.5, Total Bilirubin 0.6, Aspartate Amino Transf (AST/SGOT) 71H, Alanine Aminotransferase (ALT/SGPT) 89H, Alkaline Phosphatase 57, Total Creatine Kinase 144, Total Protein 7.3, Albumin 3.3L, Globulin 4.0, Albumin/Globulin Ratio 0.8L , Thyroid Stimulating Hormone (TSH) 1.590, Free Thyroxine 1.21, Free Triiodothyronine 2.3, Cortisol [Pending] 07/17/16 03:00: Urine Color Pale yellow, Urine Appearance Clear, Urine pH 6.5, Urine Specific [place] 1.010, Urine Protein Negative, Urine Glucose (UA) Negative, Urine Ketones Negative, Urine Occult Blood 2+H, Urine Nitrite Negative, Urine Bilirubin Negative, Urine Urobilinogen Normal, Urine Leukocyte Esterase Negative , Urine RBC 0-2H, Urine WBC 0, Urine Squamous Epithelial Cells Few, Urine Bacteria None, Urine Eosinophils None seen, Urine Osmolality [Pending], Urine Random Sodium 34, Urine Random Chloride 19, Urine Potassium Timed 9 07/17/16 06:55: Sodium Level 144, Potassium Level 4.3, Chloride Level 105, Carbon Dioxide Level 23, Anion Gap 16H, Blood Urea Nitrogen 27H, Creatinine 3.2H, Estimat Glomerular Filtration Rate 24.6, Glucose Level 111H, Uric Acid 5.9, Calcium Level 8.7, Phosphorus Level 4.3, Magnesium Level 2.5, Total Bilirubin 0.6, Aspartate Amino Transf (AST/SGOT) 67H, Alanine Aminotransferase (ALT/SGPT) 90H, Alkaline Phosphatase 55, Total Creatine Kinase 126, Total Protein 6.6, Albumin 3.1L, Globulin 3.5, Albumin/Globulin Ratio 0.8L, White Blood Count 12.7H, Red Blood Count 4.70, Hemoglobin 14.0L, Hematocrit 42.5, Mean Corpuscular Volume 90, Mean Corpuscular Hemoglobin 29.7, Mean Corpuscular Hemoglobin Concent 32.8, Red Cell Distribution Width 12.4, Platelet Count 458H, Mean Platelet Volume 6.5, Neutrophils (%) (Auto) 75.2H, Lymphocytes (%) (Auto) 14.3L, Monocytes (%) (Auto ) 6.9, Eosinophils (%) (Auto) 1.8, Basophils (%) (Auto) 1.8, Gamma Glutamyl Transpeptidase 38, C-Reactive Protein, Quantitative 5.8H, Pro-B-Type Natriuretic Peptide 66, Random Vancomycin Level 25.1 Height (Feet): 6 Height (Inches): 10.00 Weight (Pounds): 292 EENT: PERRL/EOMI Neck: supple Cardiovascular: normal rate Respiratory/Chest: lungs clear Abdomen: soft Jamel Vernon MD Jul 17, 2016 14:56
[2016-07-17 16:00] VITALS: BP 123/72
--- NOTE | 2016-07-17 16:14 | General Progress Note ---
Assessment/Plan Assessment/Plan Assessment - abnormal LFT - fatty liver - elevated CK / rhabdo - PNA - Sepsis - Azotemia Recommendations - hydration - follow labs - abx - push po - follow LFT Subjective Allergies: Coded Allergies: No Known Allergies (Unverified , 07/10/16) Subjective Feels OK no abdominal pain d/w patient re all liver results Objective Last 24 Hour Vital Signs Date Time Temp Pulse Resp B/P Pulse Ox O2 Delivery O2 Flow Rate FiO2 07/17/16 12:00 97.7 85 20 124/72 95 Room Air 07/17/16 08:52 90 147/92 07/17/16 08:00 97.2 90 24 147/92 97 Room Air 07/17/16 04:00 98.1 89 20 140/88 96 Room Air 07/17/16 00:00 97.9 95 20 145/96 97 Room Air 07/16/16 20:00 98.2 74 16 118/72 95 Room Air 07/16/16 19:30 90 20 Room Air 21 07/16/16 19:30 Room Air 21 07/16/16 19:30 96 Room Air 21 07/16/16 17:09 97.0 Intake and Output 07/16/16 07/17/16 19:00 07:00 Intake Total 533.708 ml 360 ml Output Total 600 ml 1200 ml Balance -66.292 ml -840 ml Intake Oral 240 ml 360 ml IV Total 293.708 ml Output Urine Total 600 ml 1200 ml # Voids 2 3 # Bowel Movements 2 Laboratory Tests 07/16/16 20:50: Sodium Level 143, Potassium Level 3.9, Chloride Level 102, Carbon Dioxide Level 27, Anion Gap 14, Blood Urea Nitrogen 25H, Creatinine 3.0H, Estimat Glomerular Filtration Rate 26.5, Glucose Level 114H, Plasma/Serum Osmolality [Pending], Uric Acid 5.5, Calcium Level 9.0, Phosphorus Level 4.1, Magnesium Level 2.5, Total Bilirubin 0.6, Aspartate Amino Transf (AST/SGOT) 71H, Alanine Aminotransferase (ALT/SGPT) 89H, Alkaline Phosphatase 57, Total Creatine Kinase 144, Total Protein 7.3, Albumin 3.3L, Globulin 4.0, Albumin/Globulin Ratio 0.8L , Thyroid Stimulating Hormone (TSH) 1.590, Free Thyroxine 1.21, Free Triiodothyronine 2.3, Cortisol [Pending] 07/17/16 03:00: Urine Color Pale yellow, Urine Appearance Clear, Urine pH 6.5, Urine Specific [place] 1.010, Urine Protein Negative, Urine Glucose (UA) Negative, Urine Ketones Negative, Urine Occult Blood 2+H, Urine Nitrite Negative, Urine Bilirubin Negative, Urine Urobilinogen Normal, Urine Leukocyte Esterase Negative , Urine RBC 0-2H, Urine WBC 0, Urine Squamous Epithelial Cells Few, Urine Bacteria None, Urine Eosinophils None seen, Urine Osmolality [Pending], Urine Random Sodium 34, Urine Random Chloride 19, Urine Potassium Timed 9 07/17/16 06:55: Sodium Level 144, Potassium Level 4.3, Chloride Level 105, Carbon Dioxide Level 23, Anion Gap 16H, Blood Urea Nitrogen 27H, Creatinine 3.2H, Estimat Glomerular Filtration Rate 24.6, Glucose Level 111H, Uric Acid 5.9, Calcium Level 8.7, Phosphorus Level 4.3, Magnesium Level 2.5, Total Bilirubin 0.6, Aspartate Amino Transf (AST/SGOT) 67H, Alanine Aminotransferase (ALT/SGPT) 90H, Alkaline Phosphatase 55, Total Creatine Kinase 126, Total Protein 6.6, Albumin 3.1L, Globulin 3.5, Albumin/Globulin Ratio 0.8L, White Blood Count 12.7H, Red Blood Count 4.70, Hemoglobin 14.0L, Hematocrit 42.5, Mean Corpuscular Volume 90, Mean Corpuscular Hemoglobin 29.7, Mean Corpuscular Hemoglobin Concent 32.8, Red Cell Distribution Width 12.4, Platelet Count 458H, Mean Platelet Volume 6.5, Neutrophils (%) (Auto) 75.2H, Lymphocytes (%) (Auto) 14.3L, Monocytes (%) (Auto ) 6.9, Eosinophils (%) (Auto) 1.8, Basophils (%) (Auto) 1.8, Gamma Glutamyl Transpeptidase 38, C-Reactive Protein, Quantitative 5.8H, Pro-B-Type Natriuretic Peptide 66, Random Vancomycin Level 25.1 Height (Feet): 6 Height (Inches): 10.00 Weight (Pounds): 292 Objective obese AA man NCAT supple CTA RRR soft NT ND no edema MARTA LINARES Jul 17, 2016 16:14
--- NOTE | 2016-07-17 16:39 | General Progress Note ---
Assessment/Plan Assessment/Plan ASSESSMENT: 1. Thrombocytopenia - improved, was likely 2/2 infection 2. Anemia 2/2 chronic disease - mild 3. Pneumonia on abx. zosyn, vanc 4. Leukocytosis - mild, continue to monitor 5. Acute respiratory failure - better 6. Transaminitis due to fatty liver 7. Sepsis - on IV abx RECOMMENDATIONS: 1. Monitor platelet count 2. Maintain hemoglobin > 7 3. DVT prophylaxis heparin sq 4. GI Prophylaxis as needed 6. staff Thank you, River Johns MD Subjective Constitutional: Reports: no symptoms HEENT: Reports: no symptoms Cardiovascular: Reports: no symptoms Respiratory: Reports: no symptoms Gastrointestinal/Abdominal: Reports: poor appetite Genitourinary: Reports: no symptoms Neurologic/Psychiatric: Reports: no symptoms Endocrine: Reports: no symptoms Hematologic/Lymphatic: Reports: anemia Allergies: Coded Allergies: No Known Allergies (Unverified , 07/10/16) Subjective not bleeding, no hematochezia, less shortness of breath Objective Last 24 Hour Vital Signs Date Time Temp Pulse Resp B/P Pulse Ox O2 Delivery O2 Flow Rate FiO2 07/17/16 12:00 97.7 85 20 124/72 95 Room Air 07/17/16 08:52 90 147/92 07/17/16 08:00 97.2 90 24 147/92 97 Room Air 07/17/16 04:00 98.1 89 20 140/88 96 Room Air 07/17/16 00:00 97.9 95 20 145/96 97 Room Air 07/16/16 20:00 98.2 74 16 118/72 95 Room Air 07/16/16 19:30 90 20 Room Air 21 07/16/16 19:30 Room Air 21 07/16/16 19:30 96 Room Air 21 07/16/16 17:09 97.0 Intake and Output 07/16/16 07/17/16 19:00 07:00 Intake Total 533.708 ml 360 ml Output Total 600 ml 1200 ml Balance -66.292 ml -840 ml Intake Oral 240 ml 360 ml IV Total 293.708 ml Output Urine Total 600 ml 1200 ml # Voids 2 3 # Bowel Movements 2 Laboratory Tests 07/16/16 20:50: Sodium Level 143, Potassium Level 3.9, Chloride Level 102, Carbon Dioxide Level 27, Anion Gap 14, Blood Urea Nitrogen 25H, Creatinine 3.0H, Estimat Glomerular Filtration Rate 26.5, Glucose Level 114H, Plasma/Serum Osmolality [Pending], Uric Acid 5.5, Calcium Level 9.0, Phosphorus Level 4.1, Magnesium Level 2.5, Total Bilirubin 0.6, Aspartate Amino Transf (AST/SGOT) 71H, Alanine Aminotransferase (ALT/SGPT) 89H, Alkaline Phosphatase 57, Total Creatine Kinase 144, Total Protein 7.3, Albumin 3.3L, Globulin 4.0, Albumin/Globulin Ratio 0.8L , Thyroid Stimulating Hormone (TSH) 1.590, Free Thyroxine 1.21, Free Triiodothyronine 2.3, Cortisol [Pending] 07/17/16 03:00: Urine Color Pale yellow, Urine Appearance Clear, Urine pH 6.5, Urine Specific [place] 1.010, Urine Protein Negative, Urine Glucose (UA) Negative, Urine Ketones Negative, Urine Occult Blood 2+H, Urine Nitrite Negative, Urine Bilirubin Negative, Urine Urobilinogen Normal, Urine Leukocyte Esterase Negative , Urine RBC 0-2H, Urine WBC 0, Urine Squamous Epithelial Cells Few, Urine Bacteria None, Urine Eosinophils None seen, Urine Osmolality [Pending], Urine Random Sodium 34, Urine Random Chloride 19, Urine Potassium Timed 9 07/17/16 06:55: Sodium Level 144, Potassium Level 4.3, Chloride Level 105, Carbon Dioxide Level 23, Anion Gap 16H, Blood Urea Nitrogen 27H, Creatinine 3.2H, Estimat Glomerular Filtration Rate 24.6, Glucose Level 111H, Uric Acid 5.9, Calcium Level 8.7, Phosphorus Level 4.3, Magnesium Level 2.5, Total Bilirubin 0.6, Aspartate Amino Transf (AST/SGOT) 67H, Alanine Aminotransferase (ALT/SGPT) 90H, Alkaline Phosphatase 55, Total Creatine Kinase 126, Total Protein 6.6, Albumin 3.1L, Globulin 3.5, Albumin/Globulin Ratio 0.8L, White Blood Count 12.7H, Red Blood Count 4.70, Hemoglobin 14.0L, Hematocrit 42.5, Mean Corpuscular Volume 90, Mean Corpuscular Hemoglobin 29.7, Mean Corpuscular Hemoglobin Concent 32.8, Red Cell Distribution Width 12.4, Platelet Count 458H, Mean Platelet Volume 6.5, Neutrophils (%) (Auto) 75.2H, Lymphocytes (%) (Auto) 14.3L, Monocytes (%) (Auto ) 6.9, Eosinophils (%) (Auto) 1.8, Basophils (%) (Auto) 1.8, Gamma Glutamyl Transpeptidase 38, C-Reactive Protein, Quantitative 5.8H, Pro-B-Type Natriuretic Peptide 66, Random Vancomycin Level 25.1 Height (Feet): 6 Height (Inches): 10.00 Weight (Pounds): 292 General Appearance: no apparent distress EENT: TMs normal Neck: supple Cardiovascular: regular rhythm Respiratory/Chest: lungs clear Abdomen: non tender Extremities: normal range of motion Edema: 1+ Leg (L), 1+ Leg (R) Edema: mild edema Neurologic: alert Skin: normal pigmentation River Johns Jul 17, 2016 16:39
--- NOTE | 2016-07-17 17:17 | Infectious Diseases Prog Note ---
Assessment/Plan Problems: (1) CAP (community acquired pneumonia) Assessment & Plan: continue zosyn and hold vancomycin for now, since his creatinine is increasing, will switch to oral once clinically stable to be D/C home , influenza screening is negative , blood culture and sputum culture are negative so far. (2) Sepsis Assessment & Plan: due to pneumonia, continue zosyn and vancomycin (3) Asthma Assessment & Plan: continue nebulizers and titrate oxygen to keep O2 sat >90 % (4) Acute respiratory failure Assessment & Plan: due to the above, continue nebulizers, and oxygen , monitor CXR, pulmonary is following (5) Elevated LFTs Assessment & Plan: suspect liver shock, hepatitis panel is negative , monitor LFT, avoid hepatotoxic meds (6) DOMINIC (acute kidney injury) Assessment & Plan: hold vancomycin and check level, continue IVF for hydration , monitor renal function, consult renal Subjective Constitutional: Denies: anorexia, chills, drenching sweats, fatigue, fever, no symptoms, other HEENT: Reports: congestion Respiratory: Reports: dry cough Breasts: Denies: discharge, no symptoms, other, swelling, tenderness Cardiovascular: Denies: chest pain, dyspnea on exertion, no symptoms, other, palpitations Gastrointestinal/Abdominal: Denies: bloating, blood in stool, constipation, diarrhea, nausea, no symptoms, other, vomiting Genitourinary: Denies: dysuria, frequency, hematuria, no symptoms, nocturia, other Neurologic: Reports: weakness Psychiatric: Denies: anxiety, depression, no symptoms, other Skin: Denies: no symptoms, other, rash, ulcer Endocrine: Denies: feels cold, feels warm, no symptoms, other Allergies: Coded Allergies: No Known Allergies (Unverified , 07/10/16) Subjective he was doing OK , feeling weak , denied any symptoms. Objective Vital Signs Last 24 Hour Vital Signs Date Time Temp Pulse Resp B/P Pulse Ox O2 Delivery O2 Flow Rate FiO2 07/17/16 16:00 97.9 78 20 123/72 95 Room Air 07/17/16 12:00 97.7 85 20 124/72 95 Room Air 07/17/16 08:52 90 147/92 07/17/16 08:00 97.2 90 24 147/92 97 Room Air 07/17/16 04:00 98.1 89 20 140/88 96 Room Air 07/17/16 00:00 97.9 95 20 145/96 97 Room Air 07/16/16 20:00 98.2 74 16 118/72 95 Room Air 07/16/16 19:30 90 20 Room Air 21 07/16/16 19:30 Room Air 21 07/16/16 19:30 96 Room Air 21 Height (Feet): 6 Height (Inches): 10.00 Weight (Pounds): 292 General Appearance: WD/WN, no acute distress HEENT: normocephalic, atraumatic, anicteric, mucous membranes moist Respiratory/Chest: chest wall non-tender, normal breath sounds, no respiratory distress, no accessory muscle use, decreased breath sounds, crackles/rales Cardiovascular: normal peripheral pulses, normal rate, regular rhythm, no gallop/murmur, no JVD Abdomen: normal bowel sounds, soft, non tender, no organomegaly, non distended , no mass Extremities: no cyanosis, no clubbing Skin: no rash, no lesions, no ulcers Laboratory Tests Test 07/16/16 20:50 07/17/16 03:00 07/17/16 06:55 Sodium Level 143 mEQ/L (135-145) 144 mEQ/L (135-145) Potassium Level 3.9 mEQ/L (3.4-4.9) 4.3 mEQ/L (3.4-4.9) Chloride Level 102 mEQ/L (98-107) 105 mEQ/L (98-107) Carbon Dioxide Level 27 mEQ/L (20-30) 23 mEQ/L (20-30) Anion Gap 14 (5-15) 16 (5-15) H Blood Urea Nitrogen 25 mg/dL (7-23) H 27 mg/dL (7-23) H Creatinine 3.0 mg/dL (0.7-1.2) H 3.2 mg/dL (0.7-1.2) H Estimat Glomerular Filtration Rate 26.5 mL/min (>60) 24.6 mL/min (>60) Glucose Level 114 mg/dL (74-106) H 111 mg/dL (74-106) H Plasma/Serum Osmolality Pending Uric Acid 5.5 mg/dL (3.0-7.5) 5.9 mg/dL (3.0-7.5) Calcium Level 9.0 mg/dL (8.6-10.2) 8.7 mg/dL (8.6-10.2) Phosphorus Level 4.1 mg/dL (2.5-4.8) 4.3 mg/dL (2.5-4.8) Magnesium Level 2.5 mg/dL (1.7-2.5) 2.5 mg/dL (1.7-2.5) Total Bilirubin 0.6 mg/dL (0.0-1.2) 0.6 mg/dL (0.0-1.2) Aspartate Amino Transf (AST/SGOT) 71 U/L (5-40) H 67 U/L (5-40) H Alanine Aminotransferase (ALT/SGPT) 89 U/L (3-41) H 90 U/L (3-41) H Alkaline Phosphatase 57 U/L (40-129) 55 U/L (40-129) Total Creatine Kinase 144 U/L (38-174) 126 U/L (38-174) Total Protein 7.3 g/dL (6.6-8.7) 6.6 g/dL (6.6-8.7) Albumin 3.3 g/dL (3.5-5.2) L 3.1 g/dL (3.5-5.2) L Globulin 4.0 g/dL 3.5 g/dL Albumin/Globulin Ratio 0.8 (1.0-2.7) L 0.8 (1.0-2.7) L Thyroid Stimulating Hormone (TSH) 1.590 uIU/mL (0.300-4.500) Free Thyroxine 1.21 ng/dL (0.86-1.85) Free Triiodothyronine 2.3 pg/mL (2.3-4.2) Cortisol Pending Urine Color Pale yellow Urine Appearance Clear Urine pH 6.5 (4.5-8.0) Urine Specific [place] 1.010 (1.005-1.035) Urine Protein Negative (NEGATIVE) Urine Glucose (UA) Negative (NEGATIVE) Urine Ketones Negative (NEGATIVE) Urine Occult Blood 2+ (NEGATIVE) H Urine Nitrite Negative (NEGATIVE) Urine Bilirubin Negative (NEGATIVE) Urine Urobilinogen Normal MG/DL (0.0-1.0) Urine Leukocyte Esterase Negative (NEGATIVE) Urine RBC 0-2 /HPF (0 - 0) H Urine WBC 0 /HPF (0 - 0) Urine Squamous Epithelial Cells Few /LPF (NONE/OCC) Urine Bacteria None /HPF (NONE) Urine Eosinophils None seen Urine Osmolality Pending Urine Random Sodium 34 mmol/L Urine Random Chloride 19 mmol/L Urine Potassium Timed 9 mmol/L White Blood Count 12.7 K/UL (4.8-10.8) H Red Blood Count 4.70 M/UL (4.70-6.10) Hemoglobin 14.0 G/DL (14.2-18.0) L Hematocrit 42.5 % (42.0-52.0) Mean Corpuscular Volume 90 FL (80-99) Mean Corpuscular Hemoglobin 29.7 PG (27.0-31.0) Mean Corpuscular Hemoglobin Concent 32.8 G/DL (32.0-36.0) Red Cell Distribution Width 12.4 % (11.6-14.8) Platelet Count 458 K/UL (150-450) H Mean Platelet Volume 6.5 FL (6.5-10.1) Neutrophils (%) (Auto) 75.2 % (45.0-75.0) H Lymphocytes (%) (Auto) 14.3 % (20.0-45.0) L Monocytes (%) (Auto) 6.9 % (1.0-10.0) Eosinophils (%) (Auto) 1.8 % (0.0-3.0) Basophils (%) (Auto) 1.8 % (0.0-2.0) Gamma Glutamyl Transpeptidase 38 U/L (8-61) C-Reactive Protein, Quantitative 5.8 mg/dL (< 0.5) H Pro-B-Type Natriuretic Peptide 66 pg/mL (0-125) Random Vancomycin Level 25.1 ug/mL Current Medications Medications (Trade) Dose Ordered Sig/Brad Route PRN Reason Start Time Stop Time Status Last Admin Dose Admin Acetaminophen (Tylenol) 650 mg Q4H PRN ORAL fever 07/13/16 20:00 2 19:59 Al Hydroxide/Mg Hydroxide (Mylanta II) 30 ml Q6H PRN ORAL dyspepsia 07/13/16 20:00 08/12/16 19:59 Albuterol/ Ipratropium (DuoNeb 0.5-3(2.5)mg/3ml) 3 ml Q4H PRN HHN Shortness of Breath 07/13/16 20:00 07/18/16 19:59 Amlodipine Besylate (Norvasc) 10 mg DAILY ORAL 07/14/16 09:00 08/13/16 08:59 07/17/16 08:52 Heparin Sodium (Porcine) (Heparin 5000 units/ml) 5,000 units EVERY 12 HOURS SUBQ 07/13/16 22:00 08/12/16 21:59 07/17/16 08:58 Nitroglycerin (Ntg) 0.4 mg Q5MIN X 3 DOSES PRN SL Prn Chest Pain 07/13/16 18:15 08/12/16 18:14 Ondansetron HCl (Zofran) 4 mg Q6H PRN IVP Nausea & Vomiting 07/13/16 20:00 08/12/16 19:59 Piperacillin Sod/ Tazobactam Sod/ Dextrose (Zosyn/D5W) 110 ml @ 27.5 mls/hr Q8H IVPB 07/15/16 08:00 07/22/16 07:59 07/17/16 16:00 Polyethylene Glycol (Miralax) 17 gm DAILYPRN PRN ORAL Constipation 07/13/16 20:00 08/12/16 19:59 Promethazine HCl/ Codeine (Phenergan with Codeine) 5 ml Q4H PRN ORAL For Cough 07/13/16 20:00 08/12/16 19:59 Temazepam (Restoril) 15 mg HSPRN PRN ORAL Insomnia 07/13/16 20:00 07/20/16 19:59 Vancomycin HCl 1 ea 1 ea DAILY PRN MISC . 07/13/16 20:00 08/12/16 19:59 Cammy Garcia M.D. Jul 17, 2016 17:17
[2016-07-17] MEDS: D5 1/2NS 1,000 ML IV SCH (18:00)
--- NOTE | 2016-07-17 18:01 | Consultation ---
Consult Note Consult Note I was asked to evaluate at the request of Dr Lucero for renal failure- Patient admitted with Pneumonia , had a Cr of 1.9 on admission, which first normalized to 1.1 and then rk to 3.2 Patient examined- Interviewed, and date reviewed Assessment/Plan Status: acute renal failure ? Nephrotoxics ( Vanco), Low BP , Sepsis HTN Pneumonia Abnormal LFTs Plan: Kidney KIMBERLY- IV fluid- Stop Vanco- monitor level per orders Monitor renal parameters- urine studies- JULIO CÉSAR CHANG Jul 17, 2016 18:01
[2016-07-17 19:00] VITALS: BP 130/70
[2016-07-17] MEDS: Tamsulosin 0.4mg cap ORAL SCH (20:13)
[2016-07-17] MEDS: Zosyn 2.25 gm in D5W 55ml IV SCH (22:00)
--- NOTE | 2016-07-17 23:45 | Pulmonology Progress Note ---
Assessment/Plan Problems: (1) Acute respiratory failure (2) Pneumonia (3) Sepsis (4) ATN (acute tubular necrosis) (5) Elevated LFTs Assessment/Plan respiratory status stable titrate fio2 to sat of 92% renal w/u no sputum yet sputum negative check wbc Subjective ROS Limited/Unobtainable: No Constitutional: Reports: no symptoms HEENT: Repors: no symptoms Respiratory: Reports: no symptoms Cardiovascular: Reports: no symptoms Gastrointestinal/Abdominal: Reports: no symptoms Allergies: Coded Allergies: No Known Allergies (Unverified , 07/10/16) Objective Last 24 Hour Vital Signs Date Time Temp Pulse Resp B/P Pulse Ox O2 Delivery O2 Flow Rate FiO2 07/17/16 19:25 Room Air 21 07/17/16 19:25 97 Room Air 21 07/17/16 19:20 92 20 Room Air 21 07/17/16 19:00 98.0 82 20 130/70 96 Room Air 07/17/16 16:00 97.9 78 20 123/72 95 Room Air 07/17/16 12:00 97.7 85 20 124/72 95 Room Air 07/17/16 08:52 90 147/92 07/17/16 08:00 97.2 90 24 147/92 97 Room Air 07/17/16 04:00 98.1 89 20 140/88 96 Room Air 07/17/16 00:00 97.9 95 20 145/96 97 Room Air Intake and Output 07/16/16 07/17/16 19:00 07:00 Intake Total 533.708 ml 360 ml Output Total 600 ml 1200 ml Balance -66.292 ml -840 ml Intake Oral 240 ml 360 ml IV Total 293.708 ml Output Urine Total 600 ml 1200 ml # Voids 2 3 # Bowel Movements 2 General Appearance: WD/WN HEENT: atraumatic Respiratory/Chest: chest wall non-tender Cardiovascular: normal peripheral pulses, normal rate Abdomen: normal bowel sounds Genitourinary: normal external genitalia Extremities: no cyanosis Skin: no lesions Laboratory Tests 07/17/16 03:00: Urine Color Pale yellow, Urine Appearance Clear, Urine pH 6.5, Urine Specific Damon 1.010, Urine Protein Negative, Urine Glucose (UA) Negative, Urine Ketones Negative, Urine Occult Blood 2+H, Urine Nitrite Negative, Urine Bilirubin Negative, Urine Urobilinogen Normal, Urine Leukocyte Esterase Negative , Urine RBC 0-2H, Urine WBC 0, Urine Squamous Epithelial Cells Few, Urine Bacteria None, Urine Eosinophils None seen, Urine Osmolality [Pending], Urine Random Sodium 34, Urine Random Chloride 19, Urine Potassium Timed 9 07/17/16 06:55: White Blood Count 12.7H, Red Blood Count 4.70, Hemoglobin 14.0L, Hematocrit 42.5 , Mean Corpuscular Volume 90, Mean Corpuscular Hemoglobin 29.7, Mean Corpuscular Hemoglobin Concent 32.8, Red Cell Distribution Width 12.4, Platelet Count 458H, Mean Platelet Volume 6.5, Neutrophils (%) (Auto) 75.2H, Lymphocytes (%) (Auto) 14.3L, Monocytes (%) (Auto) 6.9, Eosinophils (%) (Auto) 1.8, Basophils (%) (Auto) 1.8, Sodium Level 144, Potassium Level 4.3, Chloride Level 105, Carbon Dioxide Level 23, Anion Gap 16H, Blood Urea Nitrogen 27H, Creatinine 3.2H, Estimat Glomerular Filtration Rate 24.6, Glucose Level 111H, Uric Acid 5.9, Calcium Level 8.7, Phosphorus Level 4.3, Magnesium Level 2.5, Total Bilirubin 0.6, Gamma Glutamyl Transpeptidase 38, Aspartate Amino Transf ( AST/SGOT) 67H, Alanine Aminotransferase (ALT/SGPT) 90H, Alkaline Phosphatase 55 , Total Creatine Kinase 126, C-Reactive Protein, Quantitative 5.8H, Pro-B-Type Natriuretic Peptide 66, Total Protein 6.6, Albumin 3.1L, Globulin 3.5, Albumin/ Globulin Ratio 0.8L, Random Vancomycin Level 25.1 Current Medications Medications (Trade) Dose Ordered Sig/Brad Route PRN Reason Start Time Stop Time Status Last Admin Dose Admin Acetaminophen (Tylenol) 650 mg Q4H PRN ORAL fever 07/13/16 20:00 08/12/16 19:59 Albuterol/ Ipratropium (DuoNeb 0.5-3(2.5)mg/3ml) 3 ml Q4H PRN HHN Shortness of Breath 07/13/16 20:00 07/18/16 19:59 Amlodipine Besylate (Norvasc) 5 mg DAILY ORAL 07/18/16 09:00 08/17/16 08:59 Dextrose/Sodium Chloride 1,000 ml @ 100 mls/hr Q10H IV 07/17/16 18:00 08/16/16 17:59 07/17/16 18:00 Heparin Sodium (Porcine) (Heparin 5000 units/ml) 5,000 units EVERY 12 HOURS SUBQ 07/13/16 22:00 08/12/16 21:59 07/17/16 08:58 Nitroglycerin (Ntg) 0.4 mg Q5MIN X 3 DOSES PRN SL Prn Chest Pain 07/13/16 18:15 08/12/16 18:14 Ondansetron HCl (Zofran) 4 mg Q6H PRN IVP Nausea & Vomiting 07/13/16 20:00 08/12/16 19:59 Piperacillin Sod/ Tazobactam Sod/ Dextrose (Zosyn/D5W) 55 ml @ 110 mls/hr Q8HR IV 07/17/16 22:00 07/22/16 21:59 07/17/16 22:00 Polyethylene Glycol (Miralax) 17 gm DAILYPRN PRN ORAL Constipation 07/13/16 20:00 08/12/16 19:59 Promethazine HCl/ Codeine (Phenergan with Codeine) 5 ml Q4H PRN ORAL For Cough 07/13/16 20:00 08/12/16 19:59 Tamsulosin HCl 0.4 mg 0.4 mg BEDTIME ORAL 07/17/16 21:00 08/16/16 20:59 07/17/16 20:13 Temazepam (Restoril) 15 mg HSPRN PRN ORAL Insomnia 07/13/16 20:00 07/20/16 19:59 BRINA BRAGG Jul 17, 2016 23:44
[2016-07-18] VITALS: BP 137/93
[2016-07-18] MEDS ORDERED: Piperacillin/Tazobactam 3.375 GM in D5W 110 ML IVPB SCH ×2
[2016-07-18 04:00] VITALS: BP 130/89
[2016-07-18] MEDS: D5 1/2NS 1,000 ML IV SCH ×2 (04:00→11:05)
[2016-07-18] MEDS: Zosyn 2.25 gm in D5W 55ml IV SCH ×3 (05:30→21:31)
[2016-07-18 07:26] LABS: BASOPHILS % (AUTO) 1.5 % (0.0-2.0); LYMPHOCYTES % (AUTO) 15.1 % (20.0-45.0); MEAN CORPUSCULAR HEMOGLOBIN 28.4 PG (27.0-31.0); MEAN CORPUSCULAR HGB CONC 31.6 G/DL (32.0-36.0); MEAN CORPUSCULAR VOLUME 90 FL (80-99); MEAN PLATELET VOLUME 6.2 FL (6.5-10.1); MONOCYTES % (AUTO) 7.4 % (1.0-10.0); NEUTROPHILS % (AUTO) 74.9 % (45.0-75.0); PLATELET COUNT 479 K/UL (150-450); RED BLOOD COUNT 4.74 M/UL (4.70-6.10); RED CELL DISTRIBUTION WIDTH 12.9 % (11.6-14.8); WHITE BLOOD COUNT 13.9 K/UL (4.8-10.8)
[2016-07-18 07:50] LABS: HEMOGLOBIN A1C 6.1 % (< 6.0)
[2016-07-18 08:04] LABS: ALANINE AMINOTRANSFERASE 73 U/L (3-41); ALBUMIN/GLOBULIN RATIO 0.7 (1.0-2.7); ANION GAP 19 (5-15); ASPARTATE AMINO TRANSFERASE 38 U/L (5-40); CALCIUM 8.8 mg/dL (8.6-10.2); CARBON DIOXIDE 21 mEQ/L (20-30); CHLORIDE 104 mEQ/L (98-107); CHOLESTEROL 137 mg/dL (< 200); CHOLESTEROL/HDL RATIO 5.7 (3.3-4.4); CREATININE 3.6 mg/dL (0.7-1.2); CRP QUANT 5.3 mg/dL (< 0.5); GLOMERULAR FILTRATION RATE 21.6 mL/min (>60); HEMOLYSIS 6; LDL CHOLESTEROL (CALC.) 91 mg/dL (60-99); MAGNESIUM 2.5 mg/dL (1.7-2.5); POTASSIUM 3.9 mEQ/L (3.4-4.9); SODIUM 144 mEQ/L (135-145); TOTAL PROTEIN 7.4 g/dL (6.6-8.7); URIC ACID 5.9 mg/dL (3.0-7.5)
[2016-07-18 08:11] VITALS: BP 132/85
[2016-07-18] MEDS: Heparin 5000 units/ml inj SUBQ SCH ×2 (09:42→21:33)
--- NOTE | 2016-07-18 09:51 | General Progress Note ---
Assessment/Plan Assessment/Plan ASSESSMENT: 1. Thrombocytosis - was thrombocytopenia initially and now improved 2. Anemia 2/2 chronic disease - mild 3. Pneumonia on abx. zosyn, vanc 4. Leukocytosis - mild, continue to monitor 5. Acute respiratory failure - better 6. Transaminitis due to fatty liver 7. Sepsis - on IV abx RECOMMENDATIONS: 1. Monitor platelet count 2. Maintain hemoglobin > 7 3. DVT prophylaxis heparin sq 4. GI Prophylaxis as needed 6. staff Thank you, River Johns MD Subjective Constitutional: Reports: no symptoms HEENT: Reports: no symptoms Cardiovascular: Reports: no symptoms Respiratory: Reports: no symptoms Gastrointestinal/Abdominal: Reports: poor appetite Genitourinary: Reports: no symptoms Neurologic/Psychiatric: Reports: no symptoms Endocrine: Reports: no symptoms Hematologic/Lymphatic: Reports: anemia Allergies: Coded Allergies: No Known Allergies (Unverified , 07/10/16) Subjective not bleeding, no hematochezia, less sob Objective Last 24 Hour Vital Signs Date Time Temp Pulse Resp B/P Pulse Ox O2 Delivery O2 Flow Rate FiO2 07/18/16 09:40 95 132/85 07/18/16 08:11 98.2 95 19 132/85 96 Room Air 07/18/16 07:45 96 Room Air 07/18/16 07:45 Room Air 07/18/16 07:45 94 18 Room Air 07/18/16 04:00 97.8 90 20 130/89 96 Room Air 07/18/16 00:00 98.1 94 20 137/93 95 Room Air 07/17/16 19:25 Room Air 07/17/16 19:25 97 Room Air 21 07/17/16 19:20 92 20 Room Air 21 07/17/16 19:00 98.0 82 20 130/70 96 Room Air 07/17/16 16:00 97.9 78 20 123/72 95 Room Air 07/17/16 12:00 97.7 85 20 124/72 95 Room Air Intake and Output 07/17/16 07/18/16 19:00 07:00 Intake Total 110.0 ml 1170 ml Output Total 300 ml 350 ml Balance -190.0 ml 820 ml Intake Oral 360 ml IV Total 110.0 ml 810 ml Output Urine Total 300 ml 350 ml # Voids 5 Laboratory Tests 07/18/16 04:08: Urine Eosinophils None seen 07/18/16 05:15: White Blood Count 13.9H, Red Blood Count 4.74, Hemoglobin 13.5L, Hematocrit 42.7 , Mean Corpuscular Volume 90, Mean Corpuscular Hemoglobin 28.4, Mean Corpuscular Hemoglobin Concent 31.6L, Red Cell Distribution Width 12.9, Platelet Count 479H, Mean Platelet Volume 6.2L, Neutrophils (%) (Auto) 74.9, Lymphocytes (%) (Auto) 15.1L, Monocytes (%) (Auto) 7.4, Eosinophils (%) (Auto) 1.0, Basophils (%) (Auto) 1.5, Sodium Level 144, Potassium Level 3.9, Chloride Level 104, Carbon Dioxide Level 21, Anion Gap 19H, Blood Urea Nitrogen 30H, Creatinine 3.6H, Estimat Glomerular Filtration Rate 21.6, Glucose Level 117H, Hemoglobin A1c 6.1H, Uric Acid 5.9, Calcium Level 8.8, Phosphorus Level 4.0, Magnesium Level 2.5, Total Bilirubin 0.6, Gamma Glutamyl Transpeptidase 46, Aspartate Amino Transf (AST/SGOT) 38, Alanine Aminotransferase (ALT/SGPT) 73H, Alkaline Phosphatase 57, Total Creatine Kinase 102, C-Reactive Protein, Quantitative 5.3H, Pro-B-Type Natriuretic Peptide 78, Total Protein 7.4, Albumin 3.1L, Globulin 4.3, Albumin/Globulin Ratio 0.7L, Triglycerides Level 110 , Cholesterol Level 137, LDL Cholesterol 91, HDL Cholesterol 24, Cholesterol/ HDL Ratio 5.7H, Thyroid Stimulating Hormone (TSH) 1.280, Random Vancomycin Level 16.3 Height (Feet): 6 Height (Inches): 10.00 Weight (Pounds): 292 General Appearance: alert EENT: TMs normal Neck: normal alignment Cardiovascular: normal rate Respiratory/Chest: lungs clear Abdomen: non tender Extremities: non-tender Edema: 1+ Leg (L), 1+ Leg (R) Edema: mild edema Neurologic: alert Skin: warm/dry River Johns Jul 18, 2016 09:51
[2016-07-18 11:45] VITALS: BP 149/92
--- NOTE | 2016-07-18 13:45 | Diagnostic Imaging Report ---
Indication: Abnormal renal function tests Technique: Grayscale and duplex images of the kidneys, retroperitoneum, and bladder were obtained. Comparison:Abdominal ultrasound dated 07/11/2016 Findings: Right kidney measures 13.2 cm in length. Left kidney measures 14.6 cm in length. Both kidneys demonstrate normal echogenicity. No hydronephrosis. No focal abnormality. Normal inferior vena cava. Bladder is partially distended. No significant change Impression: negative.
--- NOTE | 2016-07-18 13:51 | General Progress Note ---
Assessment/Plan Problem List: (1) Diabetes ICD Codes: E11.9 - Type 2 diabetes mellitus without complications SNOMED: 98665761 (2) Acute respiratory failure ICD Codes: J96.00 - Acute respiratory failure, unspecified whether with hypoxia or hypercapnia SNOMED: 07747207 (3) Elevated LFTs ICD Codes: R94.5 - Abnormal results of liver function studies SNOMED: 716529707 (4) Pneumonia ICD Codes: J18.9 - Pneumonia, unspecified organism SNOMED: 247132350 (5) HTN (hypertension) ICD Codes: I10 - Essential (primary) hypertension SNOMED: 39218430 (6) MARIA FERNANDA (obstructive sleep apnea) ICD Codes: G47.33 - Obstructive sleep apnea (adult) (pediatric) SNOMED: 94650737 (7) CAP (community acquired pneumonia) ICD Codes: J18.9 - Pneumonia, unspecified organism SNOMED: 982588818 Status: progressing Assessment/Plan chf r/o over diuresis not ready for dc due to worsening renal function dr denise is aware Subjective ROS Limited/Unobtainable: Yes Constitutional: Reports: no symptoms Allergies: Coded Allergies: No Known Allergies (Unverified , 07/10/16) Objective Last 24 Hour Vital Signs Date Time Temp Pulse Resp B/P Pulse Ox O2 Delivery O2 Flow Rate FiO2 07/18/16 11:45 98.0 91 19 149/92 96 Room Air 07/18/16 09:40 95 132/85 07/18/16 08:11 98.2 95 19 132/85 96 Room Air 07/18/16 07:45 96 Room Air 07/18/16 07:45 Room Air 07/18/16 07:45 94 18 Room Air 07/18/16 04:00 97.8 90 20 130/89 96 Room Air 07/18/16 00:00 98.1 94 20 137/93 95 Room Air 07/17/16 19:25 Room Air 21 07/17/16 19:25 97 Room Air 21 07/17/16 19:20 92 20 Room Air 21 07/17/16 19:00 98.0 82 20 130/70 96 Room Air 07/17/16 16:00 97.9 78 20 123/72 95 Room Air Intake and Output 07/17/16 07/18/16 19:00 07:00 Intake Total 110.0 ml 1170 ml Output Total 300 ml 350 ml Balance -190.0 ml 820 ml Intake Oral 360 ml IV Total 110.0 ml 810 ml Output Urine Total 300 ml 350 ml # Voids 5 Laboratory Tests 07/18/16 04:08: Urine Eosinophils None seen 07/18/16 05:15: White Blood Count 13.9H, Red Blood Count 4.74, Hemoglobin 13.5L, Hematocrit 42.7 , Mean Corpuscular Volume 90, Mean Corpuscular Hemoglobin 28.4, Mean Corpuscular Hemoglobin Concent 31.6L, Red Cell Distribution Width 12.9, Platelet Count 479H, Mean Platelet Volume 6.2L, Neutrophils (%) (Auto) 74.9, Lymphocytes (%) (Auto) 15.1L, Monocytes (%) (Auto) 7.4, Eosinophils (%) (Auto) 1.0, Basophils (%) (Auto) 1.5, Sodium Level 144, Potassium Level 3.9, Chloride Level 104, Carbon Dioxide Level 21, Anion Gap 19H, Blood Urea Nitrogen 30H, Creatinine 3.6H, Estimat Glomerular Filtration Rate 21.6, Glucose Level 117H, Hemoglobin A1c 6.1H, Uric Acid 5.9, Calcium Level 8.8, Phosphorus Level 4.0, Magnesium Level 2.5, Total Bilirubin 0.6, Gamma Glutamyl Transpeptidase 46, Aspartate Amino Transf (AST/SGOT) 38, Alanine Aminotransferase (ALT/SGPT) 73H, Alkaline Phosphatase 57, Total Creatine Kinase 102, C-Reactive Protein, Quantitative 5.3H, Pro-B-Type Natriuretic Peptide 78, Total Protein 7.4, Albumin 3.1L, Globulin 4.3, Albumin/Globulin Ratio 0.7L, Triglycerides Level 110 , Cholesterol Level 137, LDL Cholesterol 91, HDL Cholesterol 24, Cholesterol/ HDL Ratio 5.7H, Thyroid Stimulating Hormone (TSH) 1.280, Random Vancomycin Level 16.3 Height (Feet): 6 Height (Inches): 10.00 Weight (Pounds): 292 EENT: PERRL/EOMI Cardiovascular: normal rate Respiratory/Chest: lungs clear Abdomen: soft Jamel Vernon MD Jul 18, 2016 13:51
--- NOTE | 2016-07-18 14:21 | General Progress Note ---
Assessment/Plan Status: unchanged - - Cr rising Status Narrative Cr higher 3.6 Assessment/Plan Status: acute renal failure ? Nephrotoxics ( Vanco), Low BP , Sepsis HTN Pneumonia Abnormal LFTs, fatty liver Plan: Kidney KIMBERLY- negative IV fluid- Stop Vanco- monitor level per orders Monitor renal parameters- urine studies- Subjective ROS Limited/Unobtainable: No Allergies: Coded Allergies: No Known Allergies (Unverified , 07/10/16) Objective Last 24 Hour Vital Signs Date Time Temp Pulse Resp B/P Pulse Ox O2 Delivery O2 Flow Rate FiO2 07/18/16 11:45 98.0 91 19 149/92 96 Room Air 07/18/16 09:40 95 132/85 07/18/16 08:11 98.2 95 19 132/85 96 Room Air 07/18/16 07:45 96 Room Air 21 07/18/16 07:45 Room Air 21 07/18/16 07:45 94 18 Room Air 21 07/18/16 04:00 97.8 90 20 130/89 96 Room Air 07/18/16 00:00 98.1 94 20 137/93 95 Room Air 07/17/16 19:25 Room Air 21 07/17/16 19:25 97 Room Air 21 07/17/16 19:20 92 20 Room Air 21 07/17/16 19:00 98.0 82 20 130/70 96 Room Air 07/17/16 16:00 97.9 78 20 123/72 95 Room Air Intake and Output 07/17/16 07/18/16 19:00 07:00 Intake Total 110.0 ml 1170 ml Output Total 300 ml 350 ml Balance -190.0 ml 820 ml Intake Oral 360 ml IV Total 110.0 ml 810 ml Output Urine Total 300 ml 350 ml # Voids 5 Laboratory Tests 07/18/16 04:08: Urine Eosinophils None seen 07/18/16 05:15: White Blood Count 13.9H, Red Blood Count 4.74, Hemoglobin 13.5L, Hematocrit 42.7 , Mean Corpuscular Volume 90, Mean Corpuscular Hemoglobin 28.4, Mean Corpuscular Hemoglobin Concent 31.6L, Red Cell Distribution Width 12.9, Platelet Count 479H, Mean Platelet Volume 6.2L, Neutrophils (%) (Auto) 74.9, Lymphocytes (%) (Auto) 15.1L, Monocytes (%) (Auto) 7.4, Eosinophils (%) (Auto) 1.0, Basophils (%) (Auto) 1.5, Sodium Level 144, Potassium Level 3.9, Chloride Level 104, Carbon Dioxide Level 21, Anion Gap 19H, Blood Urea Nitrogen 30H, Creatinine 3.6H, Estimat Glomerular Filtration Rate 21.6, Glucose Level 117H, Hemoglobin A1c 6.1H, Uric Acid 5.9, Calcium Level 8.8, Phosphorus Level 4.0, Magnesium Level 2.5, Total Bilirubin 0.6, Gamma Glutamyl Transpeptidase 46, Aspartate Amino Transf (AST/SGOT) 38, Alanine Aminotransferase (ALT/SGPT) 73H, Alkaline Phosphatase 57, Total Creatine Kinase 102, C-Reactive Protein, Quantitative 5.3H, Pro-B-Type Natriuretic Peptide 78, Total Protein 7.4, Albumin 3.1L, Globulin 4.3, Albumin/Globulin Ratio 0.7L, Triglycerides Level 110 , Cholesterol Level 137, LDL Cholesterol 91, HDL Cholesterol 24, Cholesterol/ HDL Ratio 5.7H, Thyroid Stimulating Hormone (TSH) 1.280, Random Vancomycin Level 16.3 Height (Feet): 6 Height (Inches): 10.00 Weight (Pounds): 292 General Appearance: no apparent distress Cardiovascular: tachycardia Respiratory/Chest: decreased breath sounds Abdomen: distended JULIO CÉSAR CHANG Jul 18, 2016 14:21
--- NOTE | 2016-07-18 14:31 | Diagnostic Imaging Report ---
Indication: Acute renal failure, abnormal renal function tests Technique: Grayscale and duplex images of the kidneys, retroperitoneum, and bladder were obtained. Comparison:07/16/2016 renal ultrasound, 07/11/2016 abdominal ultrasound Findings: Right kidney measures 13.7 cm in length. Left kidney measures 13.9 cm in length. Both kidneys demonstrate normal echogenicity. No hydronephrosis. No focal abnormality. Normal inferior vena cava. Bladder is normal. No significant interim change Impression: negative. No change from prior exam of 2 days earlier
[2016-07-18 16:00] VITALS: BP 153/97
--- NOTE | 2016-07-18 16:54 | Infectious Diseases Prog Note ---
Assessment/Plan Problems: (1) CAP (community acquired pneumonia) Assessment & Plan: continue zosyn and stop vancomycin for now, since his creatinine is increasing, will switch to oral once clinically stable to be D/C home , influenza screening is negative , blood culture and sputum culture are negative so far. (2) Sepsis Assessment & Plan: due to pneumonia, continue zosyn for now, and monitor culture (3) Asthma Assessment & Plan: continue nebulizers and titrate oxygen to keep O2 sat >90 % (4) Acute respiratory failure Assessment & Plan: due to the above, continue nebulizers, and oxygen , monitor CXR, pulmonary is following (5) Elevated LFTs Assessment & Plan: suspect liver shock, hepatitis panel is negative , monitor LFT, avoid hepatotoxic meds (6) DOMINIC (acute kidney injury) Assessment & Plan: off vancomycin , continue IVF for hydration, monitor renal function, nephrology is following . Subjective Constitutional: Reports: no symptoms HEENT: Reports: no symptoms Respiratory: Reports: no symptoms Breasts: Reports: no symptoms Cardiovascular: Reports: no symptoms Gastrointestinal/Abdominal: Reports: no symptoms Genitourinary: Reports: no symptoms Neurologic: Reports: no symptoms Psychiatric: Reports: no symptoms Skin: Reports: no symptoms Endocrine: Reports: no symptoms Allergies: Coded Allergies: No Known Allergies (Unverified , 07/10/16) Subjective he was feeling better , denied any symptoms, anxious to go home.. Objective Vital Signs Last 24 Hour Vital Signs Date Time Temp Pulse Resp B/P Pulse Ox O2 Delivery O2 Flow Rate FiO2 07/18/16 11:45 98.0 91 19 149/92 96 Room Air 07/18/16 09:40 95 132/85 07/18/16 08:11 98.2 95 19 132/85 96 Room Air 07/18/16 07:45 96 Room Air 07/18/16 07:45 Room Air 07/18/16 07:45 94 18 Room Air 07/18/16 04:00 97.8 90 20 130/89 96 Room Air 07/18/16 00:00 98.1 94 20 137/93 95 Room Air 07/17/16 19:25 Room Air 21 07/17/16 19:25 97 Room Air 21 07/17/16 19:20 92 20 Room Air 21 07/17/16 19:00 98.0 82 20 130/70 96 Room Air Height (Feet): 6 Height (Inches): 10.00 Weight (Pounds): 292 General Appearance: WD/WN, no acute distress HEENT: normocephalic, atraumatic, anicteric, mucous membranes moist Respiratory/Chest: chest wall non-tender, normal breath sounds, no respiratory distress, no accessory muscle use, decreased breath sounds, crackles/rales Cardiovascular: normal peripheral pulses, normal rate, regular rhythm, no gallop/murmur Abdomen: normal bowel sounds, soft, non tender, no organomegaly, non distended , no mass Extremities: no cyanosis, no clubbing Skin: no rash, no lesions, no ulcers Laboratory Tests Test 07/18/16 04:08 07/18/16 05:15 Urine Eosinophils None seen White Blood Count 13.9 K/UL (4.8-10.8) H Red Blood Count 4.74 M/UL (4.70-6.10) Hemoglobin 13.5 G/DL (14.2-18.0) L Hematocrit 42.7 % (42.0-52.0) Mean Corpuscular Volume 90 FL (80-99) Mean Corpuscular Hemoglobin 28.4 PG (27.0-31.0) Mean Corpuscular Hemoglobin Concent 31.6 G/DL (32.0-36.0) L Red Cell Distribution Width 12.9 % (11.6-14.8) Platelet Count 479 K/UL (150-450) H Mean Platelet Volume 6.2 FL (6.5-10.1) L Neutrophils (%) (Auto) 74.9 % (45.0-75.0) Lymphocytes (%) (Auto) 15.1 % (20.0-45.0) L Monocytes (%) (Auto) 7.4 % (1.0-10.0) Eosinophils (%) (Auto) 1.0 % (0.0-3.0) Basophils (%) (Auto) 1.5 % (0.0-2.0) Sodium Level 144 mEQ/L (135-145) Potassium Level 3.9 mEQ/L (3.4-4.9) Chloride Level 104 mEQ/L (98-107) Carbon Dioxide Level 21 mEQ/L (20-30) Anion Gap 19 (5-15) H Blood Urea Nitrogen 30 mg/dL (7-23) H Creatinine 3.6 mg/dL (0.7-1.2) H Estimat Glomerular Filtration Rate 21.6 mL/min (>60) Glucose Level 117 mg/dL (74-106) H Hemoglobin A1c 6.1 % (< 6.0) H Uric Acid 5.9 mg/dL (3.0-7.5) Calcium Level 8.8 mg/dL (8.6-10.2) Phosphorus Level 4.0 mg/dL (2.5-4.8) Magnesium Level 2.5 mg/dL (1.7-2.5) Total Bilirubin 0.6 mg/dL (0.0-1.2) Gamma Glutamyl Transpeptidase 46 U/L (8-61) Aspartate Amino Transf (AST/SGOT) 38 U/L (5-40) Alanine Aminotransferase (ALT/SGPT) 73 U/L (3-41) H Alkaline Phosphatase 57 U/L (40-129) Total Creatine Kinase 102 U/L (38-174) C-Reactive Protein, Quantitative 5.3 mg/dL (< 0.5) H Pro-B-Type Natriuretic Peptide 78 pg/mL (0-125) Total Protein 7.4 g/dL (6.6-8.7) Albumin 3.1 g/dL (3.5-5.2) L Globulin 4.3 g/dL Albumin/Globulin Ratio 0.7 (1.0-2.7) L Triglycerides Level 110 mg/dL (< 150) Cholesterol Level 137 mg/dL (< 200) LDL Cholesterol 91 mg/dL (60-99) HDL Cholesterol 24 mg/dL (> 60) Cholesterol/HDL Ratio 5.7 (3.3-4.4) H Thyroid Stimulating Hormone (TSH) 1.280 uIU/mL (0.300-4.500) Random Vancomycin Level 16.3 ug/mL Current Medications Medications (Trade) Dose Ordered Sig/Brad Route PRN Reason Start Time Stop Time Status Last Admin Dose Admin Acetaminophen (Tylenol) 650 mg Q4H PRN ORAL fever 07/13/16 20:00 08/12/16 19:59 Albuterol/ Ipratropium (DuoNeb 0.5-3(2.5)mg/3ml) 3 ml Q4H PRN HHN Shortness of Breath 07/13/16 20:00 07/18/16 19:59 Amlodipine Besylate (Norvasc) 5 mg BID ORAL 07/18/16 18:00 08/17/16 17:59 Dextrose/Sodium Chloride 1,000 ml @ 100 mls/hr Q10H IV 07/17/16 18:00 08/16/16 17:59 07/18/16 11:05 Heparin Sodium (Porcine) (Heparin 5000 units/ml) 5,000 units EVERY 12 HOURS SUBQ 07/13/16 22:00 08/12/16 21:59 07/18/16 09:42 Nitroglycerin (Ntg) 0.4 mg Q5MIN X 3 DOSES PRN SL Prn Chest Pain 07/13/16 18:15 08/12/16 18:14 Ondansetron HCl (Zofran) 4 mg Q6H PRN IVP Nausea & Vomiting 07/13/16 20:00 08/12/16 19:59 Piperacillin Sod/ Tazobactam Sod/ Dextrose (Zosyn/D5W) 55 ml @ 110 mls/hr Q8HR IV 07/17/16 22:00 07/22/16 21:59 07/18/16 13:36 Polyethylene Glycol (Miralax) 17 gm DAILYPRN PRN ORAL Constipation 07/13/16 20:00 08/12/16 19:59 Promethazine HCl/ Codeine (Phenergan with Codeine) 5 ml Q4H PRN ORAL For Cough 07/13/16 20:00 08/12/16 19:59 Tamsulosin HCl 0.4 mg 0.4 mg BEDTIME ORAL 07/17/16 21:00 08/16/16 20:59 07/17/16 20:13 Temazepam (Restoril) 15 mg HSPRN PRN ORAL Insomnia 07/13/16 20:00 07/20/16 19:59 Cammy Garcia M.D. Jul 18, 2016 16:54
--- NOTE | 2016-07-18 17:59 | Pulmonology Progress Note ---
Assessment/Plan Problems: (1) Acute respiratory failure (2) Pneumonia (3) Sepsis (4) ATN (acute tubular necrosis) (5) Elevated LFTs Assessment/Plan respiratory status stable titrate fio2 to sat of 92% renal worsening no sputum yet sputum negative cxr much better Subjective ROS Limited/Unobtainable: No Interval Events: improving Constitutional: Reports: no symptoms Allergies: Coded Allergies: No Known Allergies (Unverified , 07/10/16) Objective Last 24 Hour Vital Signs Date Time Temp Pulse Resp B/P Pulse Ox O2 Delivery O2 Flow Rate FiO2 07/18/16 16:00 98.2 98 20 153/97 97 Room Air 07/18/16 11:45 98.0 91 19 149/92 96 Room Air 07/18/16 09:40 95 132/85 07/18/16 08:11 98.2 95 19 132/85 96 Room Air 07/18/16 07:45 96 Room Air 21 07/18/16 07:45 Room Air 21 07/18/16 07:45 94 18 Room Air 21 07/18/16 04:00 97.8 90 20 130/89 96 Room Air 07/18/16 00:00 98.1 94 20 137/93 95 Room Air 07/17/16 19:25 Room Air 21 07/17/16 19:25 97 Room Air 21 07/17/16 19:20 92 20 Room Air 21 07/17/16 19:00 98.0 82 20 130/70 96 Room Air Intake and Output 07/17/16 07/18/16 19:00 07:00 Intake Total 110.0 ml 1170 ml Output Total 300 ml 350 ml Balance -190.0 ml 820 ml Intake Oral 360 ml IV Total 110.0 ml 810 ml Output Urine Total 300 ml 350 ml # Voids 5 General Appearance: WD/WN HEENT: normocephalic, atraumatic Respiratory/Chest: chest wall non-tender, lungs clear Cardiovascular: normal peripheral pulses, regular rhythm Abdomen: normal bowel sounds, no organomegaly Laboratory Tests 07/18/16 04:08: Urine Eosinophils None seen 07/18/16 05:15: White Blood Count 13.9H, Red Blood Count 4.74, Hemoglobin 13.5L, Hematocrit 42.7 , Mean Corpuscular Volume 90, Mean Corpuscular Hemoglobin 28.4, Mean Corpuscular Hemoglobin Concent 31.6L, Red Cell Distribution Width 12.9, Platelet Count 479H, Mean Platelet Volume 6.2L, Neutrophils (%) (Auto) 74.9, Lymphocytes (%) (Auto) 15.1L, Monocytes (%) (Auto) 7.4, Eosinophils (%) (Auto) 1.0, Basophils (%) (Auto) 1.5, Sodium Level 144, Potassium Level 3.9, Chloride Level 104, Carbon Dioxide Level 21, Anion Gap 19H, Blood Urea Nitrogen 30H, Creatinine 3.6H, Estimat Glomerular Filtration Rate 21.6, Glucose Level 117H, Hemoglobin A1c 6.1H, Uric Acid 5.9, Calcium Level 8.8, Phosphorus Level 4.0, Magnesium Level 2.5, Total Bilirubin 0.6, Gamma Glutamyl Transpeptidase 46, Aspartate Amino Transf (AST/SGOT) 38, Alanine Aminotransferase (ALT/SGPT) 73H, Alkaline Phosphatase 57, Total Creatine Kinase 102, C-Reactive Protein, Quantitative 5.3H, Pro-B-Type Natriuretic Peptide 78, Total Protein 7.4, Albumin 3.1L, Globulin 4.3, Albumin/Globulin Ratio 0.7L, Triglycerides Level 110 , Cholesterol Level 137, LDL Cholesterol 91, HDL Cholesterol 24, Cholesterol/ HDL Ratio 5.7H, Thyroid Stimulating Hormone (TSH) 1.280, Random Vancomycin Level 16.3 Current Medications Medications (Trade) Dose Ordered Sig/Brad Route PRN Reason Start Time Stop Time Status Last Admin Dose Admin Acetaminophen (Tylenol) 650 mg Q4H PRN ORAL fever 07/13/16 20:00 08/12/16 19:59 Albuterol/ Ipratropium (DuoNeb 0.5-3(2.5)mg/3ml) 3 ml Q4H PRN HHN Shortness of Breath 07/13/16 20:00 07/18/16 19:59 Amlodipine Besylate (Norvasc) 5 mg BID ORAL 07/18/16 18:00 08/17/16 17:59 Dextrose/Sodium Chloride 1,000 ml @ 100 mls/hr Q10H IV 07/17/16 18:00 08/16/16 17:59 07/18/16 11:05 Heparin Sodium (Porcine) (Heparin 5000 units/ml) 5,000 units EVERY 12 HOURS SUBQ 07/13/16 22:00 08/12/16 21:59 07/18/16 09:42 Nitroglycerin (Ntg) 0.4 mg Q5MIN X 3 DOSES PRN SL Prn Chest Pain 07/13/16 18:15 08/12/16 18:14 Ondansetron HCl (Zofran) 4 mg Q6H PRN IVP Nausea & Vomiting 07/13/16 20:00 08/12/16 19:59 Piperacillin Sod/ Tazobactam Sod/ Dextrose (Zosyn/D5W) 55 ml @ 110 mls/hr Q8HR IV 07/17/16 22:00 07/22/16 21:59 07/18/16 13:36 Polyethylene Glycol (Miralax) 17 gm DAILYPRN PRN ORAL Constipation 07/13/16 20:00 08/12/16 19:59 Promethazine HCl/ Codeine (Phenergan with Codeine) 5 ml Q4H PRN ORAL For Cough 07/13/16 20:00 08/12/16 19:59 Tamsulosin HCl 0.4 mg 0.4 mg BEDTIME ORAL 07/17/16 21:00 08/16/16 20:59 07/17/16 20:13 Temazepam (Restoril) 15 mg HSPRN PRN ORAL Insomnia 07/13/16 20:00 07/20/16 19:59 BRINA BRAGG Jul 18, 2016 17:59
[2016-07-18 19:00] VITALS: BP 134/74
[2016-07-18] MEDS: Tamsulosin 0.4mg cap ORAL SCH (21:31)
--- NOTE | 2016-07-18 23:37 | General Progress Note ---
Assessment/Plan Assessment/Plan Assessment - abnormal LFT - fatty liver - elevated CK / rhabdo - PNA - Sepsis - Azotemia Recommendations - hydration - follow labs - abx - push po - follow LFT Subjective Allergies: Coded Allergies: No Known Allergies (Unverified , 07/10/16) Subjective Feels OK no abdominal pain d/w patient re all liver results - improving Cr worse Objective Last 24 Hour Vital Signs Date Time Temp Pulse Resp B/P Pulse Ox O2 Delivery O2 Flow Rate FiO2 07/18/16 19:05 98 Room Air 21 07/18/16 19:05 Room Air 21 07/18/16 19:05 95 20 Room Air 21 07/18/16 19:00 97.7 94 20 134/74 96 Room Air 07/18/16 18:00 91 118/78 07/18/16 16:00 98.2 98 20 153/97 97 Room Air 07/18/16 11:45 98.0 91 19 149/92 96 Room Air 07/18/16 09:40 95 132/85 07/18/16 08:11 98.2 95 19 132/85 96 Room Air 07/18/16 07:45 96 Room Air 21 07/18/16 07:45 Room Air 21 07/18/16 07:45 94 18 Room Air 21 07/18/16 04:00 97.8 90 20 130/89 96 Room Air 07/18/16 00:00 98.1 94 20 137/93 95 Room Air Intake and Output 07/17/16 07/18/16 19:00 07:00 Intake Total 110.0 ml 1170 ml Output Total 300 ml 350 ml Balance -190.0 ml 820 ml Intake Oral 360 ml IV Total 110.0 ml 810 ml Output Urine Total 300 ml 350 ml # Voids 5 Laboratory Tests 07/18/16 04:08: Urine Eosinophils None seen 07/18/16 05:15: White Blood Count 13.9H, Red Blood Count 4.74, Hemoglobin 13.5L, Hematocrit 42.7 , Mean Corpuscular Volume 90, Mean Corpuscular Hemoglobin 28.4, Mean Corpuscular Hemoglobin Concent 31.6L, Red Cell Distribution Width 12.9, Platelet Count 479H, Mean Platelet Volume 6.2L, Neutrophils (%) (Auto) 74.9, Lymphocytes (%) (Auto) 15.1L, Monocytes (%) (Auto) 7.4, Eosinophils (%) (Auto) 1.0, Basophils (%) (Auto) 1.5, Sodium Level 144, Potassium Level 3.9, Chloride Level 104, Carbon Dioxide Level 21, Anion Gap 19H, Blood Urea Nitrogen 30H, Creatinine 3.6H, Estimat Glomerular Filtration Rate 21.6, Glucose Level 117H, Hemoglobin A1c 6.1H, Uric Acid 5.9, Calcium Level 8.8, Phosphorus Level 4.0, Magnesium Level 2.5, Total Bilirubin 0.6, Gamma Glutamyl Transpeptidase 46, Aspartate Amino Transf (AST/SGOT) 38, Alanine Aminotransferase (ALT/SGPT) 73H, Alkaline Phosphatase 57, Total Creatine Kinase 102, C-Reactive Protein, Quantitative 5.3H, Pro-B-Type Natriuretic Peptide 78, Total Protein 7.4, Albumin 3.1L, Globulin 4.3, Albumin/Globulin Ratio 0.7L, Triglycerides Level 110 , Cholesterol Level 137, LDL Cholesterol 91, HDL Cholesterol 24, Cholesterol/ HDL Ratio 5.7H, Thyroid Stimulating Hormone (TSH) 1.280, Random Vancomycin Level 16.3 Height (Feet): 6 Height (Inches): 10.00 Weight (Pounds): 292 Objective obese AA man NCAT supple CTA RRR soft NT ND no edema MARTA LINARES Jul 18, 2016 23:37
[2016-07-19 00:36] VITALS: BP 134/67
[2016-07-19] MEDS: D5 1/2NS 1,000 ML IV SCH ×3 (00:38→20:23)
[2016-07-19 04:00] VITALS: BP 144/103
[2016-07-19] MEDS: Zosyn 2.25 gm in D5W 55ml IV SCH ×3 (05:44→22:40)
[2016-07-19 07:35] LABS: BASOPHILS % (AUTO) 1.2 % (0.0-2.0); EOSINOPHILS % (AUTO) 0.7 % (0.0-3.0); LYMPHOCYTES % (AUTO) 12.9 % (20.0-45.0); MEAN CORPUSCULAR HEMOGLOBIN 29.7 PG (27.0-31.0); MEAN CORPUSCULAR HGB CONC 33.4 G/DL (32.0-36.0); MEAN CORPUSCULAR VOLUME 89 FL (80-99); MEAN PLATELET VOLUME 6.2 FL (6.5-10.1); MONOCYTES % (AUTO) 8.3 % (1.0-10.0); NEUTROPHILS % (AUTO) 76.9 % (45.0-75.0); PLATELET COUNT 474 K/UL (150-450); RED BLOOD COUNT 4.25 M/UL (4.70-6.10); RED CELL DISTRIBUTION WIDTH 12.6 % (11.6-14.8); WHITE BLOOD COUNT 14.2 K/UL (4.8-10.8)
[2016-07-19 07:58] VITALS: BP 150/98
[2016-07-19 08:14] LABS: ALBUMIN/GLOBULIN RATIO 0.7 (1.0-2.7); CALCIUM 8.8 mg/dL (8.6-10.2); CREATININE 3.5 mg/dL (0.7-1.2); CRP QUANT 5.9 mg/dL (< 0.5); GLOMERULAR FILTRATION RATE 22.2 mL/min (>60); MAGNESIUM 2.4 mg/dL (1.7-2.5); PHOSPHORUS 3.8 mg/dL (2.5-4.8); POTASSIUM 4.1 mEQ/L (3.4-4.9); TOTAL PROTEIN 7.6 g/dL (6.6-8.7); URIC ACID 5.8 mg/dL (3.0-7.5)
[2016-07-19] MEDS: Heparin 5000 units/ml inj SUBQ SCH ×2 (08:52→20:23)
[2016-07-19] MEDS: Clindamycin 600mg 50 ML IV SCH ×2 (10:22→21:57)
[2016-07-19 10:31] LABS: CORTISOL 18.9 ug/dL
[2016-07-19 11:50] VITALS: BP 132/92
--- NOTE | 2016-07-19 11:50 | General Progress Note ---
Assessment/Plan Problem List: (1) Diabetes ICD Codes: E11.9 - Type 2 diabetes mellitus without complications SNOMED: 33496732 (2) Acute respiratory failure ICD Codes: J96.00 - Acute respiratory failure, unspecified whether with hypoxia or hypercapnia SNOMED: 48228673 (3) Elevated LFTs ICD Codes: R94.5 - Abnormal results of liver function studies SNOMED: 376325514 (4) Pneumonia ICD Codes: J18.9 - Pneumonia, unspecified organism SNOMED: 485044982 (5) HTN (hypertension) ICD Codes: I10 - Essential (primary) hypertension SNOMED: 27383493 (6) MARIA FERNANDA (obstructive sleep apnea) ICD Codes: G47.33 - Obstructive sleep apnea (adult) (pediatric) SNOMED: 40810756 (7) CAP (community acquired pneumonia) ICD Codes: J18.9 - Pneumonia, unspecified organism SNOMED: 271119463 Status: progressing Assessment/Plan chf r/o over diuresis wrosening renal function not stable for dc check renal function Subjective ROS Limited/Unobtainable: Yes Constitutional: Reports: no symptoms Allergies: Coded Allergies: No Known Allergies (Unverified , 07/10/16) Objective Last 24 Hour Vital Signs Date Time Temp Pulse Resp B/P Pulse Ox O2 Delivery O2 Flow Rate FiO2 07/19/16 09:35 95 Room Air 21 07/19/16 09:35 97 20 Room Air 07/19/16 09:35 Room Air 21 07/19/16 08:51 98 150/98 07/19/16 07:58 98.2 98 20 150/98 94 Room Air 07/19/16 04:00 98.6 98 19 144/103 98 Room Air 07/19/16 00:36 97.7 97 19 134/67 99 Room Air 07/18/16 19:05 98 Room Air 21 07/18/16 19:05 Room Air 21 07/18/16 19:05 95 20 Room Air 21 07/18/16 19:00 97.7 94 20 134/74 96 Room Air 07/18/16 18:00 91 118/78 07/18/16 16:00 98.2 98 20 153/97 97 Room Air Intake and Output 07/18/16 07/19/16 19:00 07:00 Intake Total 1105 ml 1135 ml Output Total 1020 ml Balance 85 ml 1135 ml Intake Oral 450 ml 480 ml IV Total 655 ml 655 ml Output Urine Total 1020 ml # Voids 1 8 # Bowel Movements 1 Laboratory Tests 07/19/16 04:40: Urine Eosinophils None seen 07/19/16 06:35: White Blood Count 14.2H, Red Blood Count 4.25L, Hemoglobin 12.6L, Hematocrit 37.7L, Mean Corpuscular Volume 89, Mean Corpuscular Hemoglobin 29.7, Mean Corpuscular Hemoglobin Concent 33.4, Red Cell Distribution Width 12.6, Platelet Count 474H, Mean Platelet Volume 6.2L, Neutrophils (%) (Auto) 76.9H, Lymphocytes (%) (Auto) 12.9L, Monocytes (%) (Auto) 8.3, Eosinophils (%) (Auto) 0.7, Basophils (%) (Auto) 1.2, Sodium Level 144, Potassium Level 4.1, Chloride Level 105, Carbon Dioxide Level 22, Anion Gap 17H, Blood Urea Nitrogen 29H, Creatinine 3.5H, Estimat Glomerular Filtration Rate 22.2, Glucose Level 105, Uric Acid 5.8, Calcium Level 8.8, Phosphorus Level 3.8, Magnesium Level 2.4, Total Bilirubin 0.5, Aspartate Amino Transf (AST/SGOT) 31, Alanine Aminotransferase (ALT/SGPT) 60H, Alkaline Phosphatase 63, C-Reactive Protein, Quantitative 5.9H, Pro-B-Type Natriuretic Peptide 116, Total Protein 7.6, Albumin 3.2L, Globulin 4.4, Albumin/Globulin Ratio 0.7L Height (Feet): 6 Height (Inches): 10.00 Weight (Pounds): 292 Neck: non-tender Cardiovascular: normal rate Respiratory/Chest: lungs clear Abdomen: soft Jamel Vernon MD Jul 19, 2016 11:50
--- NOTE | 2016-07-19 12:08 | General Progress Note ---
Assessment/Plan Status: stable, unchanged Status Narrative Cr leveling off Assessment/Plan Status: acute renal failure ? Nephrotoxics ( Vanco), Low BP , Sepsis HTN Pneumonia Abnormal LFTs, fatty liver Plan: Kidney KIMBERLY- negative IV fluid- Stop Vanco- monitor level per orders Monitor renal parameters- urine studies- Subjective ROS Limited/Unobtainable: No Constitutional: Reports: malaise Allergies: Coded Allergies: No Known Allergies (Unverified , 07/10/16) Objective Last 24 Hour Vital Signs Date Time Temp Pulse Resp B/P Pulse Ox O2 Delivery O2 Flow Rate FiO2 07/19/16 11:50 98.2 98 21 132/92 97 Room Air 07/19/16 09:35 95 Room Air 21 07/19/16 09:35 97 20 Room Air 21 07/19/16 09:35 Room Air 21 07/19/16 08:51 98 150/98 07/19/16 07:58 98.2 98 20 150/98 94 Room Air 07/19/16 04:00 98.6 98 19 144/103 98 Room Air 07/19/16 00:36 97.7 97 19 134/67 99 Room Air 07/18/16 19:05 98 Room Air 21 07/18/16 19:05 Room Air 21 07/18/16 19:05 95 20 Room Air 21 07/18/16 19:00 97.7 94 20 134/74 96 Room Air 07/18/16 18:00 91 118/78 07/18/16 16:00 98.2 98 20 153/97 97 Room Air Intake and Output 07/18/16 07/19/16 19:00 07:00 Intake Total 1105 ml 1135 ml Output Total 1020 ml Balance 85 ml 1135 ml Intake Oral 450 ml 480 ml IV Total 655 ml 655 ml Output Urine Total 1020 ml # Voids 1 8 # Bowel Movements 1 Laboratory Tests 07/19/16 04:40: Urine Eosinophils None seen 07/19/16 06:35: White Blood Count 14.2H, Red Blood Count 4.25L, Hemoglobin 12.6L, Hematocrit 37.7L, Mean Corpuscular Volume 89, Mean Corpuscular Hemoglobin 29.7, Mean Corpuscular Hemoglobin Concent 33.4, Red Cell Distribution Width 12.6, Platelet Count 474H, Mean Platelet Volume 6.2L, Neutrophils (%) (Auto) 76.9H, Lymphocytes (%) (Auto) 12.9L, Monocytes (%) (Auto) 8.3, Eosinophils (%) (Auto) 0.7, Basophils (%) (Auto) 1.2, Sodium Level 144, Potassium Level 4.1, Chloride Level 105, Carbon Dioxide Level 22, Anion Gap 17H, Blood Urea Nitrogen 29H, Creatinine 3.5H, Estimat Glomerular Filtration Rate 22.2, Glucose Level 105, Uric Acid 5.8, Calcium Level 8.8, Phosphorus Level 3.8, Magnesium Level 2.4, Total Bilirubin 0.5, Aspartate Amino Transf (AST/SGOT) 31, Alanine Aminotransferase (ALT/SGPT) 60H, Alkaline Phosphatase 63, C-Reactive Protein, Quantitative 5.9H, Pro-B-Type Natriuretic Peptide 116, Total Protein 7.6, Albumin 3.2L, Globulin 4.4, Albumin/Globulin Ratio 0.7L Height (Feet): 6 Height (Inches): 10.00 Weight (Pounds): 292 General Appearance: no apparent distress Objective no change in PE JULIO CÉSAR CHANG Jul 19, 2016 12:08
--- NOTE | 2016-07-19 12:46 | General Progress Note ---
Assessment/Plan Assessment/Plan ASSESSMENT: 1. Thrombocytosis - was thrombocytopenia initially and has now improved 2. Anemia 2/2 chronic disease - mild 3. Pneumonia on abx. zosyn, vanc 4. Leukocytosis - mild, continue to monitor 5. Acute respiratory failure - better 6. Transaminitis due to fatty liver 7. Sepsis - on IV abx RECOMMENDATIONS: 1. Monitor counts 2. Maintain hemoglobin > 7 3. DVT prophylaxis heparin sq 4. GI Prophylaxis as needed 5. Abx as needed 6. staff Thank you, River Johns MD Subjective Constitutional: Reports: no symptoms HEENT: Reports: no symptoms Cardiovascular: Reports: no symptoms Respiratory: Reports: no symptoms Gastrointestinal/Abdominal: Reports: poor appetite Genitourinary: Reports: no symptoms Neurologic/Psychiatric: Reports: no symptoms Endocrine: Reports: no symptoms Hematologic/Lymphatic: Reports: anemia Allergies: Coded Allergies: No Known Allergies (Unverified , 07/10/16) Subjective not bleeding, no hematochezia, has less sob Objective Last 24 Hour Vital Signs Date Time Temp Pulse Resp B/P Pulse Ox O2 Delivery O2 Flow Rate FiO2 07/19/16 11:50 98.2 98 21 132/92 97 Room Air 07/19/16 09:35 95 Room Air 21 07/19/16 09:35 97 20 Room Air 21 07/19/16 09:35 Room Air 21 07/19/16 08:51 98 150/98 07/19/16 07:58 98.2 98 20 150/98 94 Room Air 07/19/16 04:00 98.6 98 19 144/103 98 Room Air 07/19/16 00:36 97.7 97 19 134/67 99 Room Air 07/18/16 19:05 98 Room Air 21 07/18/16 19:05 Room Air 21 07/18/16 19:05 95 20 Room Air 21 07/18/16 19:00 97.7 94 20 134/74 96 Room Air 07/18/16 18:00 91 118/78 07/18/16 16:00 98.2 98 20 153/97 97 Room Air Intake and Output 07/18/16 07/19/16 19:00 07:00 Intake Total 1105 ml 1135 ml Output Total 1020 ml Balance 85 ml 1135 ml Intake Oral 450 ml 480 ml IV Total 655 ml 655 ml Output Urine Total 1020 ml # Voids 1 8 # Bowel Movements 1 Laboratory Tests 07/19/16 04:40: Urine Eosinophils None seen 07/19/16 06:35: White Blood Count 14.2H, Red Blood Count 4.25L, Hemoglobin 12.6L, Hematocrit 37.7L, Mean Corpuscular Volume 89, Mean Corpuscular Hemoglobin 29.7, Mean Corpuscular Hemoglobin Concent 33.4, Red Cell Distribution Width 12.6, Platelet Count 474H, Mean Platelet Volume 6.2L, Neutrophils (%) (Auto) 76.9H, Lymphocytes (%) (Auto) 12.9L, Monocytes (%) (Auto) 8.3, Eosinophils (%) (Auto) 0.7, Basophils (%) (Auto) 1.2, Sodium Level 144, Potassium Level 4.1, Chloride Level 105, Carbon Dioxide Level 22, Anion Gap 17H, Blood Urea Nitrogen 29H, Creatinine 3.5H, Estimat Glomerular Filtration Rate 22.2, Glucose Level 105, Uric Acid 5.8, Calcium Level 8.8, Phosphorus Level 3.8, Magnesium Level 2.4, Total Bilirubin 0.5, Aspartate Amino Transf (AST/SGOT) 31, Alanine Aminotransferase (ALT/SGPT) 60H, Alkaline Phosphatase 63, C-Reactive Protein, Quantitative 5.9H, Pro-B-Type Natriuretic Peptide 116, Total Protein 7.6, Albumin 3.2L, Globulin 4.4, Albumin/Globulin Ratio 0.7L Height (Feet): 6 Height (Inches): 10.00 Weight (Pounds): 292 General Appearance: no apparent distress EENT: normal ENT inspection Neck: supple Cardiovascular: regular rhythm Respiratory/Chest: lungs clear Abdomen: soft Extremities: non-tender Edema: 1+ Leg (L), 1+ Leg (R) Edema: mild edema Neurologic: no motor/sensory deficits Skin: warm/dry River Johns Jul 19, 2016 12:46
--- NOTE | 2016-07-19 15:05 | Pulmonology Progress Note ---
Assessment/Plan Problems: (1) Acute respiratory failure (2) Pneumonia (3) Sepsis (4) ATN (acute tubular necrosis) (5) Elevated LFTs Assessment/Plan respiratory status stable titrate fio2 to sat of 92% renal worsening no sputum yet sputum negative cxr much better wbc still high, ? etiology Subjective ROS Limited/Unobtainable: No Interval Events: no new complains Constitutional: Reports: no symptoms HEENT: Repors: no symptoms Allergies: Coded Allergies: No Known Allergies (Unverified , 07/10/16) Objective Last 24 Hour Vital Signs Date Time Temp Pulse Resp B/P Pulse Ox O2 Delivery O2 Flow Rate FiO2 07/19/16 11:50 98.2 98 21 132/92 97 Room Air 07/19/16 09:35 95 Room Air 21 07/19/16 09:35 97 20 Room Air 21 07/19/16 09:35 Room Air 21 07/19/16 08:51 98 150/98 07/19/16 07:58 98.2 98 20 150/98 94 Room Air 07/19/16 04:00 98.6 98 19 144/103 98 Room Air 07/19/16 00:36 97.7 97 19 134/67 99 Room Air 07/18/16 19:05 98 Room Air 21 07/18/16 19:05 Room Air 21 07/18/16 19:05 95 20 Room Air 21 07/18/16 19:00 97.7 94 20 134/74 96 Room Air 07/18/16 18:00 91 118/78 07/18/16 16:00 98.2 98 20 153/97 97 Room Air Intake and Output 07/18/16 07/19/16 19:00 07:00 Intake Total 1105 ml 1135 ml Output Total 1020 ml Balance 85 ml 1135 ml Intake Oral 450 ml 480 ml IV Total 655 ml 655 ml Output Urine Total 1020 ml # Voids 1 8 # Bowel Movements 1 General Appearance: WD/WN HEENT: normocephalic Respiratory/Chest: chest wall non-tender, lungs clear Cardiovascular: normal peripheral pulses, normal rate Abdomen: normal bowel sounds, soft, non tender 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, no motor/sensory deficits Lymphatic: no neck adenopathy, no groin adenopathy Laboratory Tests 07/19/16 04:40: Urine Eosinophils None seen 07/19/16 06:35: White Blood Count 14.2H, Red Blood Count 4.25L, Hemoglobin 12.6L, Hematocrit 37.7L, Mean Corpuscular Volume 89, Mean Corpuscular Hemoglobin 29.7, Mean Corpuscular Hemoglobin Concent 33.4, Red Cell Distribution Width 12.6, Platelet Count 474H, Mean Platelet Volume 6.2L, Neutrophils (%) (Auto) 76.9H, Lymphocytes (%) (Auto) 12.9L, Monocytes (%) (Auto) 8.3, Eosinophils (%) (Auto) 0.7, Basophils (%) (Auto) 1.2, Sodium Level 144, Potassium Level 4.1, Chloride Level 105, Carbon Dioxide Level 22, Anion Gap 17H, Blood Urea Nitrogen 29H, Creatinine 3.5H, Estimat Glomerular Filtration Rate 22.2, Glucose Level 105, Uric Acid 5.8, Calcium Level 8.8, Phosphorus Level 3.8, Magnesium Level 2.4, Total Bilirubin 0.5, Aspartate Amino Transf (AST/SGOT) 31, Alanine Aminotransferase (ALT/SGPT) 60H, Alkaline Phosphatase 63, C-Reactive Protein, Quantitative 5.9H, Pro-B-Type Natriuretic Peptide 116, Total Protein 7.6, Albumin 3.2L, Globulin 4.4, Albumin/Globulin Ratio 0.7L Current Medications Medications (Trade) Dose Ordered Sig/Brad Route PRN Reason Start Time Stop Time Status Last Admin Dose Admin Acetaminophen (Tylenol) 650 mg Q4H PRN ORAL fever 07/13/16 20:00 08/12/16 19:59 Amlodipine Besylate 5 mg 5 mg BID ORAL 07/18/16 18:00 08/17/16 17:59 07/19/16 08:51 Clindamycin HCl/ Dextrose (Cleocin 600mg) 50 ml @ 100 mls/hr Q8HR IV 07/19/16 11:00 07/26/16 10:59 07/19/16 10:22 Dextrose/Sodium Chloride 1,000 ml @ 100 mls/hr Q10H IV 07/17/16 18:00 08/16/16 17:59 07/19/16 10:22 Heparin Sodium (Porcine) (Heparin 5000 units/ml) 5,000 units EVERY 12 HOURS SUBQ 07/13/16 22:00 08/12/16 21:59 07/19/16 08:52 Nitroglycerin (Ntg) 0.4 mg Q5MIN X 3 DOSES PRN SL Prn Chest Pain 07/13/16 18:15 08/12/16 18:14 Ondansetron HCl (Zofran) 4 mg Q6H PRN IVP Nausea & Vomiting 07/13/16 20:00 08/12/16 19:59 Piperacillin Sod/ Tazobactam Sod/ Dextrose (Zosyn/D5W) 55 ml @ 110 mls/hr Q8HR IV 07/17/16 22:00 07/22/16 21:59 07/19/16 13:06 Polyethylene Glycol (Miralax) 17 gm DAILYPRN PRN ORAL Constipation 07/13/16 20:00 08/12/16 19:59 Promethazine HCl/ Codeine (Phenergan with Codeine) 5 ml Q4H PRN ORAL For Cough 07/13/16 20:00 08/12/16 19:59 Tamsulosin HCl 0.4 mg 0.4 mg BEDTIME ORAL 07/17/16 21:00 08/16/16 20:59 07/18/16 21:31 Temazepam (Restoril) 15 mg HSPRN PRN ORAL Insomnia 07/13/16 20:00 07/20/16 19:59 BRINA BRAGG Jul 19, 2016 15:05
[2016-07-19 16:00] VITALS: BP 152/94
--- NOTE | 2016-07-19 17:37 | Infectious Diseases Prog Note ---
Assessment/Plan Problems: (1) CAP (community acquired pneumonia) Assessment & Plan: will add clindamycin to cover for MRSA, since vancomycin was stopped and his WBC went up, continue zosyn for now .will switch to oral once clinically stable to be D/C home , influenza screening is negative , blood culture and sputum culture are negative so far. (2) Sepsis Assessment & Plan: due to pneumonia, continue zosyn , and add clindamycin for MRSA coverage, monitor culture (3) Asthma Assessment & Plan: continue nebulizers and titrate oxygen to keep O2 sat >90 % (4) Acute respiratory failure Assessment & Plan: due to the above, continue nebulizers, and oxygen , monitor CXR, pulmonary is following (5) Elevated LFTs Assessment & Plan: suspect liver shock, hepatitis panel is negative , monitor LFT, avoid hepatotoxic meds (6) DOMINIC (acute kidney injury) Assessment & Plan: off vancomycin , continue IVF for hydration, monitor renal function, nephrology is following . Subjective Constitutional: Denies: anorexia, chills, drenching sweats, fatigue, fever, no symptoms, other HEENT: Denies: congestion, coryza, dysphagia, hearing change, no symptoms, other, visual change Respiratory: Denies: dry cough, no symptoms, other, productive cough, shortness of breath Breasts: Denies: discharge, no symptoms, other, swelling, tenderness Cardiovascular: Denies: chest pain, dyspnea on exertion, no symptoms, other, palpitations Gastrointestinal/Abdominal: Denies: bloating, blood in stool, constipation, diarrhea, nausea, no symptoms, other, vomiting Genitourinary: Denies: dysuria, frequency, hematuria, no symptoms, nocturia, other Neurologic: Denies: confusion, headache, no symptoms, numbness, other, weakness Psychiatric: Denies: anxiety, depression, no symptoms, other Skin: Denies: no symptoms, other, rash, ulcer Endocrine: Denies: feels cold, feels warm, no symptoms, other Allergies: Coded Allergies: No Known Allergies (Unverified , 07/10/16) Subjective he was feeling better , denied any symptoms, anxious to go home.. Objective Vital Signs Last 24 Hour Vital Signs Date Time Temp Pulse Resp B/P Pulse Ox O2 Delivery O2 Flow Rate FiO2 07/19/16 17:30 99 152/94 07/19/16 16:00 98.1 99 20 152/94 97 Room Air 07/19/16 11:50 98.2 98 21 132/92 97 Room Air 07/19/16 09:35 95 Room Air 21 07/19/16 09:35 97 20 Room Air 21 07/19/16 09:35 Room Air 21 07/19/16 08:51 98 150/98 07/19/16 07:58 98.2 98 20 150/98 94 Room Air 07/19/16 04:00 98.6 98 19 144/103 98 Room Air 07/19/16 00:36 97.7 97 19 134/67 99 Room Air 07/18/16 19:05 98 Room Air 21 07/18/16 19:05 Room Air 21 07/18/16 19:05 95 20 Room Air 21 07/18/16 19:00 97.7 94 20 134/74 96 Room Air 07/18/16 18:00 91 118/78 Height (Feet): 6 Height (Inches): 10.00 Weight (Pounds): 292 General Appearance: WD/WN, no acute distress HEENT: normocephalic, atraumatic, anicteric, mucous membranes moist Respiratory/Chest: chest wall non-tender, normal breath sounds, no respiratory distress, no accessory muscle use, decreased breath sounds, expiratory wheezing Cardiovascular: normal peripheral pulses, normal rate, regular rhythm, no gallop/murmur, no JVD Abdomen: normal bowel sounds, soft, non tender, no organomegaly, non distended , no mass, no scars Extremities: no cyanosis, no clubbing Skin: no rash, no lesions, no ulcers Laboratory Tests Test 07/19/16 04:40 07/19/16 06:35 Urine Eosinophils None seen White Blood Count 14.2 K/UL (4.8-10.8) H Red Blood Count 4.25 M/UL (4.70-6.10) L Hemoglobin 12.6 G/DL (14.2-18.0) L Hematocrit 37.7 % (42.0-52.0) L Mean Corpuscular Volume 89 FL (80-99) Mean Corpuscular Hemoglobin 29.7 PG (27.0-31.0) Mean Corpuscular Hemoglobin Concent 33.4 G/DL (32.0-36.0) Red Cell Distribution Width 12.6 % (11.6-14.8) Platelet Count 474 K/UL (150-450) H Mean Platelet Volume 6.2 FL (6.5-10.1) L Neutrophils (%) (Auto) 76.9 % (45.0-75.0) H Lymphocytes (%) (Auto) 12.9 % (20.0-45.0) L Monocytes (%) (Auto) 8.3 % (1.0-10.0) Eosinophils (%) (Auto) 0.7 % (0.0-3.0) Basophils (%) (Auto) 1.2 % (0.0-2.0) Sodium Level 144 mEQ/L (135-145) Potassium Level 4.1 mEQ/L (3.4-4.9) Chloride Level 105 mEQ/L (98-107) Carbon Dioxide Level 22 mEQ/L (20-30) Anion Gap 17 (5-15) H Blood Urea Nitrogen 29 mg/dL (7-23) H Creatinine 3.5 mg/dL (0.7-1.2) H Estimat Glomerular Filtration Rate 22.2 mL/min (>60) Glucose Level 105 mg/dL (74-106) Uric Acid 5.8 mg/dL (3.0-7.5) Calcium Level 8.8 mg/dL (8.6-10.2) Phosphorus Level 3.8 mg/dL (2.5-4.8) Magnesium Level 2.4 mg/dL (1.7-2.5) Total Bilirubin 0.5 mg/dL (0.0-1.2) Aspartate Amino Transf (AST/SGOT) 31 U/L (5-40) Alanine Aminotransferase (ALT/SGPT) 60 U/L (3-41) H Alkaline Phosphatase 63 U/L (40-129) C-Reactive Protein, Quantitative 5.9 mg/dL (< 0.5) H Pro-B-Type Natriuretic Peptide 116 pg/mL (0-125) Total Protein 7.6 g/dL (6.6-8.7) Albumin 3.2 g/dL (3.5-5.2) L Globulin 4.4 g/dL Albumin/Globulin Ratio 0.7 (1.0-2.7) L Current Medications Medications (Trade) Dose Ordered Sig/Brad Route PRN Reason Start Time Stop Time Status Last Admin Dose Admin Acetaminophen (Tylenol) 650 mg Q4H PRN ORAL fever 07/13/16 20:00 08/12/16 19:59 Amlodipine Besylate 5 mg 5 mg BID ORAL 07/18/16 18:00 08/17/16 17:59 07/19/16 17:30 Clindamycin HCl/ Dextrose (Cleocin 600mg) 50 ml @ 100 mls/hr Q8HR IV 07/19/16 11:00 07/26/16 10:59 07/19/16 10:22 Dextrose/Sodium Chloride 1,000 ml @ 100 mls/hr Q10H IV 07/17/16 18:00 08/16/16 17:59 07/19/16 10:22 Heparin Sodium (Porcine) (Heparin 5000 units/ml) 5,000 units EVERY 12 HOURS SUBQ 07/13/16 22:00 08/12/16 21:59 07/19/16 08:52 Nitroglycerin (Ntg) 0.4 mg Q5MIN X 3 DOSES PRN SL Prn Chest Pain 07/13/16 18:15 08/12/16 18:14 Ondansetron HCl (Zofran) 4 mg Q6H PRN IVP Nausea & Vomiting 07/13/16 20:00 08/12/16 19:59 Piperacillin Sod/ Tazobactam Sod/ Dextrose (Zosyn/D5W) 55 ml @ 110 mls/hr Q8HR IV 07/17/16 22:00 07/22/16 21:59 07/19/16 13:06 Polyethylene Glycol (Miralax) 17 gm DAILYPRN PRN ORAL Constipation 07/13/16 20:00 08/12/16 19:59 Promethazine HCl/ Codeine (Phenergan with Codeine) 5 ml Q4H PRN ORAL For Cough 07/13/16 20:00 08/12/16 19:59 Tamsulosin HCl 0.4 mg 0.4 mg BEDTIME ORAL 07/17/16 21:00 08/16/16 20:59 07/18/16 21:31 Temazepam (Restoril) 15 mg HSPRN PRN ORAL Insomnia 07/13/16 20:00 07/20/16 19:59 Cammy Garcia M.D. Jul 19, 2016 17:37
[2016-07-19 19:00] VITALS: BP 145/92
[2016-07-19] MEDS: Tamsulosin 0.4mg cap ORAL SCH (20:22)
--- NOTE | 2016-07-19 21:55 | General Progress Note ---
Assessment/Plan Assessment/Plan Assessment - abnormal LFT - fatty liver - elevated CK / rhabdo - PNA - Sepsis - Azotemia Recommendations - hydration - follow labs - abx - push po - follow LFT Subjective Allergies: Coded Allergies: No Known Allergies (Unverified , 07/10/16) Subjective Feels OK no abdominal pain d/w patient re all liver results - improving Cr worse Objective Last 24 Hour Vital Signs Date Time Temp Pulse Resp B/P Pulse Ox O2 Delivery O2 Flow Rate FiO2 07/19/16 20:11 95 20 Room Air 07/19/16 20:11 97 Room Air 07/19/16 20:11 Room Air 07/19/16 19:00 98.4 100 20 145/92 98 Room Air 07/19/16 17:30 99 152/94 07/19/16 16:00 98.1 99 20 152/94 97 Room Air 07/19/16 11:50 98.2 98 21 132/92 97 Room Air 07/19/16 09:35 95 Room Air 21 07/19/16 09:35 97 20 Room Air 21 07/19/16 09:35 Room Air 21 07/19/16 08:51 98 150/98 07/19/16 07:58 98.2 98 20 150/98 94 Room Air 07/19/16 04:00 98.6 98 19 144/103 98 Room Air 07/19/16 00:36 97.7 97 19 134/67 99 Room Air Intake and Output 07/18/16 07/19/16 19:00 07:00 Intake Total 1105 ml 1135 ml Output Total 1020 ml Balance 85 ml 1135 ml Intake Oral 450 ml 480 ml IV Total 655 ml 655 ml Output Urine Total 1020 ml # Voids 1 8 # Bowel Movements 1 Laboratory Tests 07/19/16 04:40: Urine Eosinophils None seen 07/19/16 06:35: White Blood Count 14.2H, Red Blood Count 4.25L, Hemoglobin 12.6L, Hematocrit 37.7L, Mean Corpuscular Volume 89, Mean Corpuscular Hemoglobin 29.7, Mean Corpuscular Hemoglobin Concent 33.4, Red Cell Distribution Width 12.6, Platelet Count 474H, Mean Platelet Volume 6.2L, Neutrophils (%) (Auto) 76.9H, Lymphocytes (%) (Auto) 12.9L, Monocytes (%) (Auto) 8.3, Eosinophils (%) (Auto) 0.7, Basophils (%) (Auto) 1.2, Sodium Level 144, Potassium Level 4.1, Chloride Level 105, Carbon Dioxide Level 22, Anion Gap 17H, Blood Urea Nitrogen 29H, Creatinine 3.5H, Estimat Glomerular Filtration Rate 22.2, Glucose Level 105, Uric Acid 5.8, Calcium Level 8.8, Phosphorus Level 3.8, Magnesium Level 2.4, Total Bilirubin 0.5, Aspartate Amino Transf (AST/SGOT) 31, Alanine Aminotransferase (ALT/SGPT) 60H, Alkaline Phosphatase 63, C-Reactive Protein, Quantitative 5.9H, Pro-B-Type Natriuretic Peptide 116, Total Protein 7.6, Albumin 3.2L, Globulin 4.4, Albumin/Globulin Ratio 0.7L Height (Feet): 6 Height (Inches): 10.00 Weight (Pounds): 292 Objective obese AA man NCAT supple CTA RRR soft NT ND no edema MARTA LINARES Jul 19, 2016 21:55
[2016-07-20] VITALS: BP 141/90
--- NOTE | 2016-07-20 01:20 | General Progress Note ---
Assessment/Plan Assessment/Plan Assessment - abnormal LFT - resolved - elevated CK / rhabdo - PNA - Sepsis - Azotemia Recommendations - hydration - follow labs - abx - push po - follow LFT Subjective Allergies: Coded Allergies: No Known Allergies (Unverified , 07/10/16) Subjective Feels OK no abdominal pain LFt normalized Cr worse Objective Last 24 Hour Vital Signs Date Time Temp Pulse Resp B/P Pulse Ox O2 Delivery O2 Flow Rate FiO2 07/20/16 00:00 98.6 98 20 141/90 99 Room Air 07/19/16 20:11 95 20 Room Air 07/19/16 20:11 97 Room Air 07/19/16 20:11 Room Air 07/19/16 19:00 98.4 100 20 145/92 98 Room Air 07/19/16 17:30 99 152/94 07/19/16 16:00 98.1 99 20 152/94 97 Room Air 07/19/16 11:50 98.2 98 21 132/92 97 Room Air 07/19/16 09:35 95 Room Air 21 07/19/16 09:35 97 20 Room Air 21 07/19/16 09:35 Room Air 21 07/19/16 08:51 98 150/98 07/19/16 07:58 98.2 98 20 150/98 94 Room Air 07/19/16 04:00 98.6 98 19 144/103 98 Room Air Intake and Output 07/19/16 07/20/16 19:00 07:00 Intake Total 1690 ml 610 ml Output Total 1200 ml Balance 490 ml 610 ml Intake Oral 480 ml 360 ml IV Total 1210 ml 250 ml Output Urine Total 1200 ml # Voids 3 4 # Bowel Movements 1 Laboratory Tests 07/19/16 04:40: Urine Eosinophils None seen 07/19/16 06:35: White Blood Count 14.2H, Red Blood Count 4.25L, Hemoglobin 12.6L, Hematocrit 37.7L, Mean Corpuscular Volume 89, Mean Corpuscular Hemoglobin 29.7, Mean Corpuscular Hemoglobin Concent 33.4, Red Cell Distribution Width 12.6, Platelet Count 474H, Mean Platelet Volume 6.2L, Neutrophils (%) (Auto) 76.9H, Lymphocytes (%) (Auto) 12.9L, Monocytes (%) (Auto) 8.3, Eosinophils (%) (Auto) 0.7, Basophils (%) (Auto) 1.2, Sodium Level 144, Potassium Level 4.1, Chloride Level 105, Carbon Dioxide Level 22, Anion Gap 17H, Blood Urea Nitrogen 29H, Creatinine 3.5H, Estimat Glomerular Filtration Rate 22.2, Glucose Level 105, Uric Acid 5.8, Calcium Level 8.8, Phosphorus Level 3.8, Magnesium Level 2.4, Total Bilirubin 0.5, Aspartate Amino Transf (AST/SGOT) 31, Alanine Aminotransferase (ALT/SGPT) 60H, Alkaline Phosphatase 63, C-Reactive Protein, Quantitative 5.9H, Pro-B-Type Natriuretic Peptide 116, Total Protein 7.6, Albumin 3.2L, Globulin 4.4, Albumin/Globulin Ratio 0.7L Height (Feet): 6 Height (Inches): 10.00 Weight (Pounds): 292 Objective obese AA man NCAT supple CTA RRR soft NT ND no edema MARTA LINARES Jul 20, 2016 01:20
[2016-07-20 04:00] VITALS: BP 127/87
[2016-07-20] MEDS: D5 1/2NS 1,000 ML IV SCH ×2 (06:00→06:54)
[2016-07-20] MEDS: Zosyn 2.25 gm in D5W 55ml IV SCH ×3 (06:03→22:41)
[2016-07-20] MEDS: Clindamycin 600mg 50 ML IV SCH ×3 (06:03→21:42)
[2016-07-20 07:18] LABS: BASOPHILS % (AUTO) 0.8 % (0.0-2.0); LYMPHOCYTES % (AUTO) 12.2 % (20.0-45.0); MEAN CORPUSCULAR HEMOGLOBIN 29.3 PG (27.0-31.0); MEAN CORPUSCULAR HGB CONC 32.6 G/DL (32.0-36.0); MEAN CORPUSCULAR VOLUME 90 FL (80-99); MONOCYTES % (AUTO) 9.5 % (1.0-10.0); NEUTROPHILS % (AUTO) 75.5 % (45.0-75.0); PLATELET COUNT 467 K/UL (150-450); RED BLOOD COUNT 4.41 M/UL (4.70-6.10); RED CELL DISTRIBUTION WIDTH 12.7 % (11.6-14.8); WHITE BLOOD COUNT 11.9 K/UL (4.8-10.8)
[2016-07-20 07:24] LABS: ALBUMIN/GLOBULIN RATIO 0.8 (1.0-2.7); CALCIUM 8.5 mg/dL (8.6-10.2); CREATININE 3.7 mg/dL (0.7-1.2); GLOMERULAR FILTRATION RATE 20.8 mL/min (>60); MAGNESIUM 2.3 mg/dL (1.7-2.5); PHOSPHORUS 3.6 mg/dL (2.5-4.8); TOTAL PROTEIN 7.2 g/dL (6.6-8.7)
[2016-07-20 08:03] VITALS: BP 139/91
[2016-07-20] MEDS: Heparin 5000 units/ml inj SUBQ SCH ×2 (08:11→21:43)
--- NOTE | 2016-07-20 08:57 | General Progress Note ---
Assessment/Plan Assessment/Plan ASSESSMENT: 1. Thrombocytosis - presented with thrombocytopenia initially, has now improved 2. Anemia 2/2 chronic disease - mild 3. Pneumonia on abx. zosyn, vanc 4. Leukocytosis - mild, was likely 2/2 infection, today has improved 5. Acute respiratory failure - better 6. Transaminitis due to fatty liver 7. Sepsis - on IV abx RECOMMENDATIONS: 1. Monitor counts 2. Maintain hemoglobin > 7 3. DVT prophylaxis heparin sq 4. GI Prophylaxis as needed 5. Followup on nephro, ID, GI, pulm recs 6. Abx as needed 7. staff Thank you, River Johns MD Subjective Constitutional: Reports: no symptoms HEENT: Reports: no symptoms Cardiovascular: Reports: no symptoms Respiratory: Reports: no symptoms Gastrointestinal/Abdominal: Reports: poor appetite Genitourinary: Reports: no symptoms Neurologic/Psychiatric: Reports: no symptoms Endocrine: Reports: no symptoms Hematologic/Lymphatic: Reports: anemia Allergies: Coded Allergies: No Known Allergies (Unverified , 07/10/16) Subjective is not bleeding, no hematochezia, has less sob Objective Last 24 Hour Vital Signs Date Time Temp Pulse Resp B/P Pulse Ox O2 Delivery O2 Flow Rate FiO2 07/20/16 08:10 103 139/91 07/20/16 08:03 98.9 103 20 139/91 95 Room Air 07/20/16 04:00 98.4 92 24 127/87 98 Room Air 07/20/16 00:00 98.6 98 20 141/90 99 Room Air 07/19/16 20:11 95 20 Room Air 07/19/16 20:11 97 Room Air 07/19/16 20:11 Room Air 07/19/16 19:00 98.4 100 20 145/92 98 Room Air 07/19/16 17:30 99 152/94 07/19/16 16:00 98.1 99 20 152/94 97 Room Air 07/19/16 11:50 98.2 98 21 132/92 97 Room Air 07/19/16 09:35 95 Room Air 21 07/19/16 09:35 97 20 Room Air 21 07/19/16 09:35 Room Air 21 Intake and Output 07/19/16 07/20/16 19:00 07:00 Intake Total 1690 ml 1265 ml Output Total 1200 ml 2000 ml Balance 490 ml -735 ml Intake Oral 480 ml 360 ml IV Total 1210 ml 905 ml Output Urine Total 1200 ml 2000 ml # Voids 3 4 # Bowel Movements 1 Laboratory Tests 07/20/16 04:50: White Blood Count 11.9H, Red Blood Count 4.41L, Hemoglobin 12.9L, Hematocrit 39.6L, Mean Corpuscular Volume 90, Mean Corpuscular Hemoglobin 29.3, Mean Corpuscular Hemoglobin Concent 32.6, Red Cell Distribution Width 12.7, Platelet Count 467H, Mean Platelet Volume 6.0L, Neutrophils (%) (Auto) 75.5H, Lymphocytes (%) (Auto) 12.2L, Monocytes (%) (Auto) 9.5, Eosinophils (%) (Auto) 2.0, Basophils (%) (Auto) 0.8, Sodium Level 141, Potassium Level 4.0, Chloride Level 103, Carbon Dioxide Level 22, Anion Gap 16H, Blood Urea Nitrogen 27H, Creatinine 3.7H, Estimat Glomerular Filtration Rate 20.8, Glucose Level 178H, Calcium Level 8.5L, Phosphorus Level 3.6, Magnesium Level 2.3, Total Bilirubin 0.5, Gamma Glutamyl Transpeptidase 46, Aspartate Amino Transf (AST/SGOT) 25, Alanine Aminotransferase (ALT/SGPT) 49H, Alkaline Phosphatase 62, Total Protein 7.2, Albumin 3.2L, Globulin 4.0, Albumin/Globulin Ratio 0.8L, Random Vancomycin Level 8.1 Height (Feet): 6 Height (Inches): 10.00 Weight (Pounds): 292 General Appearance: alert EENT: TMs normal Neck: normal alignment Cardiovascular: normal rate Respiratory/Chest: normal breath sounds Abdomen: soft Extremities: non-tender Edema: 1+ Leg (L), 1+ Leg (R) Edema: mild edema Neurologic: alert Skin: warm/dry River Johns Jul 20, 2016 08:57
--- NOTE | 2016-07-20 09:40 | General Progress Note ---
Assessment/Plan Status: unchanged Status Narrative Cr 3.7 hovering around the baseline- Vanco level down to 8 Assessment/Plan Status: acute renal failure ? Nephrotoxics ( Vanco), Low BP , Sepsis HTN Pneumonia Abnormal LFTs, fatty liver Plan: Kidney KIMBERLY- negative IV fluid- Stop Vanco- monitor level per orders Monitor renal parameters- urine studies- Subjective ROS Limited/Unobtainable: No Allergies: Coded Allergies: No Known Allergies (Unverified , 07/10/16) Objective Last 24 Hour Vital Signs Date Time Temp Pulse Resp B/P Pulse Ox O2 Delivery O2 Flow Rate FiO2 07/20/16 08:10 103 139/91 07/20/16 08:03 98.9 103 20 139/91 95 Room Air 07/20/16 04:00 98.4 92 24 127/87 98 Room Air 07/20/16 00:00 98.6 98 20 141/90 99 Room Air 07/19/16 20:11 95 20 Room Air 07/19/16 20:11 97 Room Air 07/19/16 20:11 Room Air 07/19/16 19:00 98.4 100 20 145/92 98 Room Air 07/19/16 17:30 99 152/94 07/19/16 16:00 98.1 99 20 152/94 97 Room Air 07/19/16 11:50 98.2 98 21 132/92 97 Room Air Intake and Output 07/19/16 07/20/16 19:00 07:00 Intake Total 1690 ml 1265 ml Output Total 1200 ml 2000 ml Balance 490 ml -735 ml Intake Oral 480 ml 360 ml IV Total 1210 ml 905 ml Output Urine Total 1200 ml 2000 ml # Voids 3 4 # Bowel Movements 1 Laboratory Tests 07/20/16 04:50: White Blood Count 11.9H, Red Blood Count 4.41L, Hemoglobin 12.9L, Hematocrit 39.6L, Mean Corpuscular Volume 90, Mean Corpuscular Hemoglobin 29.3, Mean Corpuscular Hemoglobin Concent 32.6, Red Cell Distribution Width 12.7, Platelet Count 467H, Mean Platelet Volume 6.0L, Neutrophils (%) (Auto) 75.5H, Lymphocytes (%) (Auto) 12.2L, Monocytes (%) (Auto) 9.5, Eosinophils (%) (Auto) 2.0, Basophils (%) (Auto) 0.8, Sodium Level 141, Potassium Level 4.0, Chloride Level 103, Carbon Dioxide Level 22, Anion Gap 16H, Blood Urea Nitrogen 27H, Creatinine 3.7H, Estimat Glomerular Filtration Rate 20.8, Glucose Level 178H, Calcium Level 8.5L, Phosphorus Level 3.6, Magnesium Level 2.3, Total Bilirubin 0.5, Gamma Glutamyl Transpeptidase 46, Aspartate Amino Transf (AST/SGOT) 25, Alanine Aminotransferase (ALT/SGPT) 49H, Alkaline Phosphatase 62, Total Protein 7.2, Albumin 3.2L, Globulin 4.0, Albumin/Globulin Ratio 0.8L, Random Vancomycin Level 8.1 Height (Feet): 6 Height (Inches): 10.00 Weight (Pounds): 292 General Appearance: no apparent distress Objective no change in PE JULIO CÉSAR CHANG Jul 20, 2016 09:40
[2016-07-20 11:48] VITALS: BP 153/89
--- NOTE | 2016-07-20 14:10 | General Progress Note ---
Assessment/Plan Problem List: (1) Diabetes ICD Codes: E11.9 - Type 2 diabetes mellitus without complications SNOMED: 74620196 (2) Acute respiratory failure ICD Codes: J96.00 - Acute respiratory failure, unspecified whether with hypoxia or hypercapnia SNOMED: 82583103 (3) Elevated LFTs ICD Codes: R94.5 - Abnormal results of liver function studies SNOMED: 464100306 (4) Pneumonia ICD Codes: J18.9 - Pneumonia, unspecified organism SNOMED: 493877731 (5) HTN (hypertension) ICD Codes: I10 - Essential (primary) hypertension SNOMED: 09420851 (6) MARIA FERNANDA (obstructive sleep apnea) ICD Codes: G47.33 - Obstructive sleep apnea (adult) (pediatric) SNOMED: 07804427 (7) CAP (community acquired pneumonia) ICD Codes: J18.9 - Pneumonia, unspecified organism SNOMED: 076782716 Status: progressing Assessment/Plan azotemia afebrile pna ] resp insuff chf moniter renal output and watch for over diuresis Subjective ROS Limited/Unobtainable: Yes Gastrointestinal/Abdominal: Reports: other Allergies: Coded Allergies: No Known Allergies (Unverified , 07/10/16) Objective Last 24 Hour Vital Signs Date Time Temp Pulse Resp B/P Pulse Ox O2 Delivery O2 Flow Rate FiO2 07/20/16 11:48 98.2 94 21 153/89 97 Room Air 07/20/16 08:10 103 139/91 07/20/16 08:03 98.9 103 20 139/91 95 Room Air 07/20/16 04:00 98.4 92 24 127/87 98 Room Air 07/20/16 00:00 98.6 98 20 141/90 99 Room Air 07/19/16 20:11 95 20 Room Air 07/19/16 20:11 97 Room Air 07/19/16 20:11 Room Air 07/19/16 19:00 98.4 100 20 145/92 98 Room Air 07/19/16 17:30 99 152/94 07/19/16 16:00 98.1 99 20 152/94 97 Room Air Intake and Output 07/19/16 07/20/16 19:00 07:00 Intake Total 1690 ml 1265 ml Output Total 1200 ml 2000 ml Balance 490 ml -735 ml Intake Oral 480 ml 360 ml IV Total 1210 ml 905 ml Output Urine Total 1200 ml 2000 ml # Voids 3 4 # Bowel Movements 1 Laboratory Tests 07/20/16 04:50: White Blood Count 11.9H, Red Blood Count 4.41L, Hemoglobin 12.9L, Hematocrit 39.6L, Mean Corpuscular Volume 90, Mean Corpuscular Hemoglobin 29.3, Mean Corpuscular Hemoglobin Concent 32.6, Red Cell Distribution Width 12.7, Platelet Count 467H, Mean Platelet Volume 6.0L, Neutrophils (%) (Auto) 75.5H, Lymphocytes (%) (Auto) 12.2L, Monocytes (%) (Auto) 9.5, Eosinophils (%) (Auto) 2.0, Basophils (%) (Auto) 0.8, Sodium Level 141, Potassium Level 4.0, Chloride Level 103, Carbon Dioxide Level 22, Anion Gap 16H, Blood Urea Nitrogen 27H, Creatinine 3.7H, Estimat Glomerular Filtration Rate 20.8, Glucose Level 178H, Calcium Level 8.5L, Phosphorus Level 3.6, Magnesium Level 2.3, Total Bilirubin 0.5, Gamma Glutamyl Transpeptidase 46, Aspartate Amino Transf (AST/SGOT) 25, Alanine Aminotransferase (ALT/SGPT) 49H, Alkaline Phosphatase 62, Total Protein 7.2, Albumin 3.2L, Globulin 4.0, Albumin/Globulin Ratio 0.8L, Random Vancomycin Level 8.1 Height (Feet): 6 Height (Inches): 10.00 Weight (Pounds): 292 Cardiovascular: normal rate Respiratory/Chest: lungs clear Abdomen: soft Jamel Vernon MD Jul 20, 2016 14:10
--- NOTE | 2016-07-20 14:32 | Pulmonology Progress Note ---
Assessment/Plan Problems: (1) Acute respiratory failure Assessment & Plan: improved (2) Pneumonia (3) Sepsis (4) ATN (acute tubular necrosis) (5) Elevated LFTs Assessment/Plan respiratory status stable titrate fio2 to sat of 92% renal worsening no sputum yet sputum negative cxr much better Subjective ROS Limited/Unobtainable: No Constitutional: Reports: no symptoms HEENT: Repors: no symptoms Respiratory: Reports: no symptoms Cardiovascular: Reports: no symptoms Allergies: Coded Allergies: No Known Allergies (Unverified , 07/10/16) Objective Last 24 Hour Vital Signs Date Time Temp Pulse Resp B/P Pulse Ox O2 Delivery O2 Flow Rate FiO2 07/20/16 11:48 98.2 94 21 153/89 97 Room Air 07/20/16 08:10 103 139/91 07/20/16 08:03 98.9 103 20 139/91 95 Room Air 07/20/16 04:00 98.4 92 24 127/87 98 Room Air 07/20/16 00:00 98.6 98 20 141/90 99 Room Air 07/19/16 20:11 95 20 Room Air 07/19/16 20:11 97 Room Air 07/19/16 20:11 Room Air 07/19/16 19:00 98.4 100 20 145/92 98 Room Air 07/19/16 17:30 99 152/94 07/19/16 16:00 98.1 99 20 152/94 97 Room Air Intake and Output 07/19/16 07/20/16 19:00 07:00 Intake Total 1690 ml 1265 ml Output Total 1200 ml 2000 ml Balance 490 ml -735 ml Intake Oral 480 ml 360 ml IV Total 1210 ml 905 ml Output Urine Total 1200 ml 2000 ml # Voids 3 4 # Bowel Movements 1 General Appearance: WD/WN Respiratory/Chest: chest wall non-tender, lungs clear Cardiovascular: normal peripheral pulses, normal rate, regular rhythm Abdomen: normal bowel sounds, soft, non tender Genitourinary: normal external genitalia Extremities: no clubbing Skin: no ulcers 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, no motor/sensory deficits Laboratory Tests 07/20/16 04:50: White Blood Count 11.9H, Red Blood Count 4.41L, Hemoglobin 12.9L, Hematocrit 39.6L, Mean Corpuscular Volume 90, Mean Corpuscular Hemoglobin 29.3, Mean Corpuscular Hemoglobin Concent 32.6, Red Cell Distribution Width 12.7, Platelet Count 467H, Mean Platelet Volume 6.0L, Neutrophils (%) (Auto) 75.5H, Lymphocytes (%) (Auto) 12.2L, Monocytes (%) (Auto) 9.5, Eosinophils (%) (Auto) 2.0, Basophils (%) (Auto) 0.8, Sodium Level 141, Potassium Level 4.0, Chloride Level 103, Carbon Dioxide Level 22, Anion Gap 16H, Blood Urea Nitrogen 27H, Creatinine 3.7H, Estimat Glomerular Filtration Rate 20.8, Glucose Level 178H, Calcium Level 8.5L, Phosphorus Level 3.6, Magnesium Level 2.3, Total Bilirubin 0.5, Gamma Glutamyl Transpeptidase 46, Aspartate Amino Transf (AST/SGOT) 25, Alanine Aminotransferase (ALT/SGPT) 49H, Alkaline Phosphatase 62, Total Protein 7.2, Albumin 3.2L, Globulin 4.0, Albumin/Globulin Ratio 0.8L, Random Vancomycin Level 8.1 Current Medications Medications (Trade) Dose Ordered Sig/Brad Route PRN Reason Start Time Stop Time Status Last Admin Dose Admin Acetaminophen (Tylenol) 650 mg Q4H PRN ORAL fever 07/13/16 20:00 08/12/16 19:59 Al Hydroxide/Mg Hydroxide (Mylanta) 30 ml Q6H PRN ORAL Abdominal cramps 07/20/16 10:30 08/19/16 10:29 Amlodipine Besylate 5 mg 5 mg BID ORAL 07/18/16 18:00 08/17/16 17:59 07/20/16 08:10 Clindamycin HCl/ Dextrose (Cleocin 600mg) 50 ml @ 100 mls/hr Q8HR IV 07/19/16 11:00 07/26/16 10:59 07/20/16 13:03 Dextrose/Sodium Chloride 1,000 ml @ 100 mls/hr Q10H IV 07/17/16 18:00 08/16/16 17:59 07/20/16 06:54 Heparin Sodium (Porcine) (Heparin 5000 units/ml) 5,000 units EVERY 12 HOURS SUBQ 07/13/16 22:00 08/12/16 21:59 07/20/16 08:11 Nitroglycerin (Ntg) 0.4 mg Q5MIN X 3 DOSES PRN SL Prn Chest Pain 07/13/16 18:15 08/12/16 18:14 Ondansetron HCl (Zofran) 4 mg Q6H PRN IVP Nausea & Vomiting 07/13/16 20:00 08/12/16 19:59 Piperacillin Sod/ Tazobactam Sod/ Dextrose (Zosyn/D5W) 55 ml @ 110 mls/hr Q8HR IV 07/17/16 22:00 07/22/16 21:59 07/20/16 14:00 Polyethylene Glycol (Miralax) 17 gm DAILYPRN PRN ORAL Constipation 07/13/16 20:00 08/12/16 19:59 Promethazine HCl/ Codeine (Phenergan with Codeine) 5 ml Q4H PRN ORAL For Cough 07/13/16 20:00 08/12/16 19:59 Ranitidine HCl (Zantac) 150 mg BEDTIME ORAL 07/20/16 21:00 08/19/16 20:59 Tamsulosin HCl 0.4 mg 0.4 mg BEDTIME ORAL 07/17/16 21:00 08/16/16 20:59 07/19/16 20:22 Temazepam (Restoril) 15 mg HSPRN PRN ORAL Insomnia 07/13/16 20:00 07/20/16 19:59 BRINA BRAGG Jul 20, 2016 14:32
[2016-07-20 16:00] VITALS: BP 134/96
[2016-07-20 19:00] VITALS: BP 142/79
--- NOTE | 2016-07-20 19:37 | Infectious Diseases Prog Note ---
Assessment/Plan Problems: (1) CAP (community acquired pneumonia) Assessment & Plan: improving, continue clindamycin to cover for MRSA, and zosyn for now .will switch to oral once clinically stable to be D/C home , influenza screening is negative , blood culture and sputum culture are negative so far. (2) Sepsis Assessment & Plan: due to pneumonia, continue zosyn , and clindamycin for MRSA coverage, monitor culture (3) Asthma Assessment & Plan: continue nebulizers and titrate oxygen to keep O2 sat >90 % (4) Acute respiratory failure Assessment & Plan: due to the above, continue nebulizers, and oxygen , monitor CXR, pulmonary is following (5) Elevated LFTs Assessment & Plan: suspect liver shock, hepatitis panel is negative , monitor LFT, avoid hepatotoxic meds (6) DOMINIC (acute kidney injury) Assessment & Plan: slowly improving, continue IVF for hydration, monitor renal function, nephrology is following . Subjective Constitutional: Denies: anorexia, chills, drenching sweats, fatigue, fever, no symptoms, other HEENT: Denies: congestion, coryza, dysphagia, hearing change, no symptoms, other, visual change Respiratory: Denies: dry cough, no symptoms, other, productive cough, shortness of breath Breasts: Denies: discharge, no symptoms, other, swelling, tenderness Cardiovascular: Denies: chest pain, dyspnea on exertion, no symptoms, other, palpitations Gastrointestinal/Abdominal: Denies: bloating, blood in stool, constipation, diarrhea, nausea, no symptoms, other, vomiting Genitourinary: Denies: dysuria, frequency, hematuria, no symptoms, nocturia, other Neurologic: Denies: confusion, headache, no symptoms, numbness, other, weakness Psychiatric: Denies: anxiety, depression, no symptoms, other Skin: Denies: no symptoms, other, rash, ulcer Endocrine: Denies: feels cold, feels warm, no symptoms, other Hematologic: Denies: bleeding, no symptoms, other, swollen lymph nodes Allergies: Coded Allergies: No Known Allergies (Unverified , 07/10/16) Subjective he was feeling better , denied any symptoms, anxious to go home.. Objective Vital Signs Last 24 Hour Vital Signs Date Time Temp Pulse Resp B/P Pulse Ox O2 Delivery O2 Flow Rate FiO2 07/20/16 19:00 94 134/96 07/20/16 16:00 97.7 94 20 134/96 97 Room Air 07/20/16 11:48 98.2 94 21 153/89 97 Room Air 07/20/16 08:10 103 139/91 07/20/16 08:03 98.9 103 20 139/91 95 Room Air 07/20/16 04:00 98.4 92 24 127/87 98 Room Air 07/20/16 00:00 98.6 98 20 141/90 99 Room Air 07/19/16 20:11 95 20 Room Air 07/19/16 20:11 97 Room Air 07/19/16 20:11 Room Air Height (Feet): 6 Height (Inches): 10.00 Weight (Pounds): 292 General Appearance: WD/WN, no acute distress HEENT: normocephalic, atraumatic, anicteric, mucous membranes moist Respiratory/Chest: chest wall non-tender, lungs clear, normal breath sounds, no respiratory distress, no accessory muscle use Cardiovascular: normal peripheral pulses, normal rate, regular rhythm, no gallop/murmur, no JVD Abdomen: normal bowel sounds, soft, non tender, no organomegaly, non distended , no mass, no scars Extremities: no cyanosis, no clubbing Skin: no rash, no lesions Laboratory Tests Test 07/20/16 04:50 White Blood Count 11.9 K/UL (4.8-10.8) H Red Blood Count 4.41 M/UL (4.70-6.10) L Hemoglobin 12.9 G/DL (14.2-18.0) L Hematocrit 39.6 % (42.0-52.0) L Mean Corpuscular Volume 90 FL (80-99) Mean Corpuscular Hemoglobin 29.3 PG (27.0-31.0) Mean Corpuscular Hemoglobin Concent 32.6 G/DL (32.0-36.0) Red Cell Distribution Width 12.7 % (11.6-14.8) Platelet Count 467 K/UL (150-450) H Mean Platelet Volume 6.0 FL (6.5-10.1) L Neutrophils (%) (Auto) 75.5 % (45.0-75.0) H Lymphocytes (%) (Auto) 12.2 % (20.0-45.0) L Monocytes (%) (Auto) 9.5 % (1.0-10.0) Eosinophils (%) (Auto) 2.0 % (0.0-3.0) Basophils (%) (Auto) 0.8 % (0.0-2.0) Sodium Level 141 mEQ/L (135-145) Potassium Level 4.0 mEQ/L (3.4-4.9) Chloride Level 103 mEQ/L (98-107) Carbon Dioxide Level 22 mEQ/L (20-30) Anion Gap 16 (5-15) H Blood Urea Nitrogen 27 mg/dL (7-23) H Creatinine 3.7 mg/dL (0.7-1.2) H Estimat Glomerular Filtration Rate 20.8 mL/min (>60) Glucose Level 178 mg/dL (74-106) H Calcium Level 8.5 mg/dL (8.6-10.2) L Phosphorus Level 3.6 mg/dL (2.5-4.8) Magnesium Level 2.3 mg/dL (1.7-2.5) Total Bilirubin 0.5 mg/dL (0.0-1.2) Gamma Glutamyl Transpeptidase 46 U/L (8-61) Aspartate Amino Transf (AST/SGOT) 25 U/L (5-40) Alanine Aminotransferase (ALT/SGPT) 49 U/L (3-41) H Alkaline Phosphatase 62 U/L (40-129) Total Protein 7.2 g/dL (6.6-8.7) Albumin 3.2 g/dL (3.5-5.2) L Globulin 4.0 g/dL Albumin/Globulin Ratio 0.8 (1.0-2.7) L Random Vancomycin Level 8.1 ug/mL Current Medications Medications (Trade) Dose Ordered Sig/Brad Route PRN Reason Start Time Stop Time Status Last Admin Dose Admin Acetaminophen (Tylenol) 650 mg Q4H PRN ORAL fever 07/13/16 20:00 08/12/16 19:59 Al Hydroxide/Mg Hydroxide (Mylanta) 30 ml Q6H PRN ORAL Abdominal cramps 07/20/16 10:30 08/19/16 10:29 Amlodipine Besylate 5 mg 5 mg BID ORAL 07/18/16 18:00 08/17/16 17:59 07/20/16 19:00 Clindamycin HCl/ Dextrose (Cleocin 600mg) 50 ml @ 100 mls/hr Q8HR IV 07/19/16 11:00 07/26/16 10:59 07/20/16 13:03 Dextrose/Sodium Chloride 1,000 ml @ 100 mls/hr Q10H IV 07/17/16 18:00 08/16/16 17:59 07/20/16 06:54 Heparin Sodium (Porcine) (Heparin 5000 units/ml) 5,000 units EVERY 12 HOURS SUBQ 07/13/16 22:00 08/12/16 21:59 07/20/16 08:11 Nitroglycerin (Ntg) 0.4 mg Q5MIN X 3 DOSES PRN SL Prn Chest Pain 07/13/16 18:15 08/12/16 18:14 Ondansetron HCl (Zofran) 4 mg Q6H PRN IVP Nausea & Vomiting 07/13/16 20:00 08/12/16 19:59 Piperacillin Sod/ Tazobactam Sod/ Dextrose (Zosyn/D5W) 55 ml @ 110 mls/hr Q8HR IV 07/17/16 22:00 07/22/16 21:59 07/20/16 14:00 Polyethylene Glycol (Miralax) 17 gm DAILYPRN PRN ORAL Constipation 07/13/16 20:00 08/12/16 19:59 Promethazine HCl/ Codeine (Phenergan with Codeine) 5 ml Q4H PRN ORAL For Cough 07/13/16 20:00 08/12/16 19:59 Ranitidine HCl (Zantac) 150 mg BEDTIME ORAL 07/20/16 21:00 08/19/16 20:59 Tamsulosin HCl 0.4 mg 0.4 mg BEDTIME ORAL 07/17/16 21:00 08/16/16 20:59 07/19/16 20:22 Temazepam (Restoril) 15 mg HSPRN PRN ORAL Insomnia 07/13/16 20:00 07/20/16 19:59 Cammy Garcia M.D. Jul 20, 2016 19:37
[2016-07-20] MEDS: Tamsulosin 0.4mg cap ORAL SCH (21:42)
--- NOTE | 2016-07-20 22:01 | General Progress Note ---
Assessment/Plan Assessment/Plan Assessment - abnormal LFT - resolved - elevated CK / rhabdo - PNA - Sepsis - Azotemia Recommendations - hydration - follow labs - abx - push po - follow LFT Subjective Allergies: Coded Allergies: No Known Allergies (Unverified , 07/10/16) Subjective Feels OK no abdominal pain LFt normalized Cr worse Objective Last 24 Hour Vital Signs Date Time Temp Pulse Resp B/P Pulse Ox O2 Delivery O2 Flow Rate FiO2 07/20/16 19:00 97.7 100 20 142/79 97 Room Air 07/20/16 19:00 94 134/96 07/20/16 16:00 97.7 94 20 134/96 97 Room Air 07/20/16 11:48 98.2 94 21 153/89 97 Room Air 07/20/16 08:10 103 139/91 07/20/16 08:03 98.9 103 20 139/91 95 Room Air 07/20/16 04:00 98.4 92 24 127/87 98 Room Air 07/20/16 00:00 98.6 98 20 141/90 99 Room Air Intake and Output 07/19/16 07/20/16 19:00 07:00 Intake Total 1690 ml 1265 ml Output Total 1200 ml 2000 ml Balance 490 ml -735 ml Intake Oral 480 ml 360 ml IV Total 1210 ml 905 ml Output Urine Total 1200 ml 2000 ml # Voids 3 4 # Bowel Movements 1 Laboratory Tests 07/20/16 04:50: White Blood Count 11.9H, Red Blood Count 4.41L, Hemoglobin 12.9L, Hematocrit 39.6L, Mean Corpuscular Volume 90, Mean Corpuscular Hemoglobin 29.3, Mean Corpuscular Hemoglobin Concent 32.6, Red Cell Distribution Width 12.7, Platelet Count 467H, Mean Platelet Volume 6.0L, Neutrophils (%) (Auto) 75.5H, Lymphocytes (%) (Auto) 12.2L, Monocytes (%) (Auto) 9.5, Eosinophils (%) (Auto) 2.0, Basophils (%) (Auto) 0.8, Sodium Level 141, Potassium Level 4.0, Chloride Level 103, Carbon Dioxide Level 22, Anion Gap 16H, Blood Urea Nitrogen 27H, Creatinine 3.7H, Estimat Glomerular Filtration Rate 20.8, Glucose Level 178H, Calcium Level 8.5L, Phosphorus Level 3.6, Magnesium Level 2.3, Total Bilirubin 0.5, Gamma Glutamyl Transpeptidase 46, Aspartate Amino Transf (AST/SGOT) 25, Alanine Aminotransferase (ALT/SGPT) 49H, Alkaline Phosphatase 62, Total Protein 7.2, Albumin 3.2L, Globulin 4.0, Albumin/Globulin Ratio 0.8L, Random Vancomycin Level 8.1 Height (Feet): 6 Height (Inches): 10.00 Weight (Pounds): 292 Objective obese AA man NCAT supple CTA RRR soft NT ND no edema MARTA LINARES Jul 20, 2016 22:01
[2016-07-21] VITALS (7 sets, daily range): BP systolic 128–154; BP diastolic 85–105
[2016-07-21] MEDS: D5 1/2NS 1,000 ML IV SCH ×2 (03:06→12:22)
[2016-07-21] MEDS: Zosyn 2.25 gm in D5W 55ml IV SCH ×3 (05:32→21:53)
[2016-07-21] MEDS: Clindamycin 600mg 50 ML IV SCH ×3 (06:00→21:02)
[2016-07-21 07:34] LABS: ALBUMIN/GLOBULIN RATIO 0.7 (1.0-2.7); CALCIUM 8.9 mg/dL (8.6-10.2); CREATININE 3.7 mg/dL (0.7-1.2); GLOMERULAR FILTRATION RATE 20.8 mL/min (>60); MAGNESIUM 2.4 mg/dL (1.7-2.5); POTASSIUM 4.1 mEQ/L (3.4-4.9); TOTAL PROTEIN 7.3 g/dL (6.6-8.7); URIC ACID 5.8 mg/dL (3.0-7.5)
[2016-07-21 07:39] LABS: BASOPHILS % (AUTO) 1.3 % (0.0-2.0); EOSINOPHILS % (AUTO) 3.3 % (0.0-3.0); LYMPHOCYTES % (AUTO) 14.6 % (20.0-45.0); MEAN CORPUSCULAR HGB CONC 32.4 G/DL (32.0-36.0); MEAN CORPUSCULAR VOLUME 90 FL (80-99); MEAN PLATELET VOLUME 6.1 FL (6.5-10.1); MONOCYTES % (AUTO) 9.4 % (1.0-10.0); NEUTROPHILS % (AUTO) 71.5 % (45.0-75.0); PLATELET COUNT 473 K/UL (150-450); RED CELL DISTRIBUTION WIDTH 12.5 % (11.6-14.8); WHITE BLOOD COUNT 11.5 K/UL (4.8-10.8)
[2016-07-21] MEDS: Heparin 5000 units/ml inj SUBQ SCH ×2 (08:45→20:41)
--- NOTE | 2016-07-21 10:31 | General Progress Note ---
Assessment/Plan Status: stable Status Narrative Cr unchanged ? leveled Assessment/Plan Status: acute renal failure ? Nephrotoxics ( Vanco), Low BP , Sepsis HTN Pneumonia Abnormal LFTs, fatty liver Plan: Kidney KIMBERLY- negative IV fluid- Stop Vanco- monitor level per orders Monitor renal parameters- urine studies- Subjective ROS Limited/Unobtainable: No Constitutional: Reports: malaise Allergies: Coded Allergies: No Known Allergies (Unverified , 07/10/16) Objective Last 24 Hour Vital Signs Date Time Temp Pulse Resp B/P Pulse Ox O2 Delivery O2 Flow Rate FiO2 07/21/16 08:44 97 142/95 07/21/16 08:05 97.2 97 20 142/95 97 Room Air 07/21/16 04:00 99.0 98 20 150/100 93 Room Air 07/21/16 00:00 97.9 89 20 134/94 94 Room Air 07/20/16 19:00 97.7 100 20 142/79 97 Room Air 07/20/16 19:00 94 134/96 07/20/16 16:00 97.7 94 20 134/96 97 Room Air 07/20/16 11:48 98.2 94 21 153/89 97 Room Air Intake and Output 07/20/16 07/21/16 19:00 07:00 Intake Total 1320 ml 120 ml Output Total 1100 ml 700 ml Balance 220 ml -580 ml Intake Oral 720 ml 120 ml IV Total 600 ml Output Urine Total 1100 ml 700 ml # Voids 4 4 Laboratory Tests 07/21/16 05:45: White Blood Count 11.5H, Red Blood Count 4.40L, Hemoglobin 12.7L, Hematocrit 39.4L, Mean Corpuscular Volume 90, Mean Corpuscular Hemoglobin 29.0, Mean Corpuscular Hemoglobin Concent 32.4, Red Cell Distribution Width 12.5, Platelet Count 473H, Mean Platelet Volume 6.1L, Neutrophils (%) (Auto) 71.5, Lymphocytes (%) (Auto) 14.6L, Monocytes (%) (Auto) 9.4, Eosinophils (%) (Auto) 3.3H, Basophils (%) (Auto) 1.3, Sodium Level 144, Potassium Level 4.1, Chloride Level 105, Carbon Dioxide Level 23, Anion Gap 16H, Blood Urea Nitrogen 29H, Creatinine 3.7H, Estimat Glomerular Filtration Rate 20.8, Glucose Level 105, Uric Acid 5.8, Calcium Level 8.9, Phosphorus Level 4.0, Magnesium Level 2.4, Total Bilirubin 0.4, Aspartate Amino Transf (AST/SGOT) 22, Alanine Aminotransferase (ALT/SGPT) 43H, Alkaline Phosphatase 74, Total Protein 7.3, Albumin 3.2L, Globulin 4.1, Albumin/Globulin Ratio 0.7L Height (Feet): 6 Height (Inches): 10.00 Weight (Pounds): 292 General Appearance: no apparent distress Cardiovascular: normal rate Respiratory/Chest: decreased breath sounds Abdomen: soft Objective no change in PE JULIO CÉSAR CHANG Jul 21, 2016 10:31
--- NOTE | 2016-07-21 11:06 | General Progress Note ---
Assessment/Plan Assessment/Plan ASSESSMENT: 1. Thrombocytosis - presented with thrombocytopenia initially, has now improved 2. Anemia 2/2 chronic disease - mild 3. Pneumonia on abx. zosyn, vanc 4. Leukocytosis - mild, was likely 2/2 infection, today has improved 5. Acute respiratory failure - better 6. Transaminitis due to fatty liver 7. Sepsis - on IV abx RECOMMENDATIONS: 1. Monitor counts 2. Maintain hemoglobin > 7 3. DVT prophylaxis heparin sq 4. GI Prophylaxis as needed 5. Followup on nephro, ID, GI, pulm recs 6. Abx as needed 7. staff Thank you, Marty Johns MD Subjective Constitutional: Reports: no symptoms HEENT: Reports: no symptoms Cardiovascular: Reports: no symptoms Respiratory: Reports: no symptoms Gastrointestinal/Abdominal: Reports: poor appetite Genitourinary: Reports: no symptoms Neurologic/Psychiatric: Reports: no symptoms Endocrine: Reports: no symptoms Hematologic/Lymphatic: Reports: anemia Allergies: Coded Allergies: No Known Allergies (Unverified , 07/10/16) Subjective stable, no hematochezia, is not bleeding Objective Last 24 Hour Vital Signs Date Time Temp Pulse Resp B/P Pulse Ox O2 Delivery O2 Flow Rate FiO2 07/21/16 08:44 97 142/95 07/21/16 08:05 97.2 97 20 142/95 97 Room Air 07/21/16 04:00 99.0 98 20 150/100 93 Room Air 07/21/16 00:00 97.9 89 20 134/94 94 Room Air 07/20/16 19:00 97.7 100 20 142/79 97 Room Air 07/20/16 19:00 94 134/96 07/20/16 16:00 97.7 94 20 134/96 97 Room Air 07/20/16 11:48 98.2 94 21 153/89 97 Room Air Intake and Output 07/20/16 07/21/16 19:00 07:00 Intake Total 1320 ml 120 ml Output Total 1100 ml 700 ml Balance 220 ml -580 ml Intake Oral 720 ml 120 ml IV Total 600 ml Output Urine Total 1100 ml 700 ml # Voids 4 4 Laboratory Tests 07/21/16 05:45: White Blood Count 11.5H, Red Blood Count 4.40L, Hemoglobin 12.7L, Hematocrit 39.4L, Mean Corpuscular Volume 90, Mean Corpuscular Hemoglobin 29.0, Mean Corpuscular Hemoglobin Concent 32.4, Red Cell Distribution Width 12.5, Platelet Count 473H, Mean Platelet Volume 6.1L, Neutrophils (%) (Auto) 71.5, Lymphocytes (%) (Auto) 14.6L, Monocytes (%) (Auto) 9.4, Eosinophils (%) (Auto) 3.3H, Basophils (%) (Auto) 1.3, Sodium Level 144, Potassium Level 4.1, Chloride Level 105, Carbon Dioxide Level 23, Anion Gap 16H, Blood Urea Nitrogen 29H, Creatinine 3.7H, Estimat Glomerular Filtration Rate 20.8, Glucose Level 105, Uric Acid 5.8, Calcium Level 8.9, Phosphorus Level 4.0, Magnesium Level 2.4, Total Bilirubin 0.4, Aspartate Amino Transf (AST/SGOT) 22, Alanine Aminotransferase (ALT/SGPT) 43H, Alkaline Phosphatase 74, Total Protein 7.3, Albumin 3.2L, Globulin 4.1, Albumin/Globulin Ratio 0.7L Height (Feet): 6 Height (Inches): 10.00 Weight (Pounds): 292 General Appearance: no apparent distress EENT: TMs normal Neck: normal alignment Cardiovascular: regular rhythm Respiratory/Chest: lungs clear Abdomen: non tender Extremities: non-tender Edema: 1+ Leg (L), 1+ Leg (R) Edema: mild edema Neurologic: alert Skin: warm/dry MARTY JOHNS Jul 21, 2016 11:05
--- NOTE | 2016-07-21 11:37 | General Progress Note ---
Assessment/Plan Problem List: (1) Diabetes ICD Codes: E11.9 - Type 2 diabetes mellitus without complications SNOMED: 77058424 (2) Acute respiratory failure ICD Codes: J96.00 - Acute respiratory failure, unspecified whether with hypoxia or hypercapnia SNOMED: 31559875 (3) Elevated LFTs ICD Codes: R94.5 - Abnormal results of liver function studies SNOMED: 698020561 (4) Pneumonia ICD Codes: J18.9 - Pneumonia, unspecified organism SNOMED: 453423587 (5) HTN (hypertension) ICD Codes: I10 - Essential (primary) hypertension SNOMED: 27272401 (6) MARIA FERNANDA (obstructive sleep apnea) ICD Codes: G47.33 - Obstructive sleep apnea (adult) (pediatric) SNOMED: 02807343 (7) CAP (community acquired pneumonia) ICD Codes: J18.9 - Pneumonia, unspecified organism SNOMED: 192253668 Status: progressing Assessment/Plan pna resp insuff sepsis vitals stable azotmeia is stablizing avoid over diuresis Subjective ROS Limited/Unobtainable: Yes Constitutional: Reports: no symptoms Allergies: Coded Allergies: No Known Allergies (Unverified , 07/10/16) Objective Last 24 Hour Vital Signs Date Time Temp Pulse Resp B/P Pulse Ox O2 Delivery O2 Flow Rate FiO2 07/21/16 08:44 97 142/95 07/21/16 08:05 97.2 97 20 142/95 97 Room Air 07/21/16 04:00 99.0 98 20 150/100 93 Room Air 07/21/16 00:00 97.9 89 20 134/94 94 Room Air 07/20/16 19:00 97.7 100 20 142/79 97 Room Air 07/20/16 19:00 94 134/96 07/20/16 16:00 97.7 94 20 134/96 97 Room Air 07/20/16 11:48 98.2 94 21 153/89 97 Room Air Intake and Output 07/20/16 07/21/16 19:00 07:00 Intake Total 1320 ml 120 ml Output Total 1100 ml 700 ml Balance 220 ml -580 ml Intake Oral 720 ml 120 ml IV Total 600 ml Output Urine Total 1100 ml 700 ml # Voids 4 4 Laboratory Tests 07/21/16 05:45: White Blood Count 11.5H, Red Blood Count 4.40L, Hemoglobin 12.7L, Hematocrit 39.4L, Mean Corpuscular Volume 90, Mean Corpuscular Hemoglobin 29.0, Mean Corpuscular Hemoglobin Concent 32.4, Red Cell Distribution Width 12.5, Platelet Count 473H, Mean Platelet Volume 6.1L, Neutrophils (%) (Auto) 71.5, Lymphocytes (%) (Auto) 14.6L, Monocytes (%) (Auto) 9.4, Eosinophils (%) (Auto) 3.3H, Basophils (%) (Auto) 1.3, Sodium Level 144, Potassium Level 4.1, Chloride Level 105, Carbon Dioxide Level 23, Anion Gap 16H, Blood Urea Nitrogen 29H, Creatinine 3.7H, Estimat Glomerular Filtration Rate 20.8, Glucose Level 105, Uric Acid 5.8, Calcium Level 8.9, Phosphorus Level 4.0, Magnesium Level 2.4, Total Bilirubin 0.4, Aspartate Amino Transf (AST/SGOT) 22, Alanine Aminotransferase (ALT/SGPT) 43H, Alkaline Phosphatase 74, Total Protein 7.3, Albumin 3.2L, Globulin 4.1, Albumin/Globulin Ratio 0.7L Height (Feet): 6 Height (Inches): 10.00 Weight (Pounds): 292 Neck: non-tender Cardiovascular: normal rate Respiratory/Chest: lungs clear Abdomen: soft Jamel Vernon MD Jul 21, 2016 11:37
--- NOTE | 2016-07-21 13:21 | Pulmonology Progress Note ---
Assessment/Plan Problems: (1) Acute respiratory failure Assessment & Plan: improved (2) Pneumonia (3) Sepsis (4) ATN (acute tubular necrosis) (5) Elevated LFTs Assessment/Plan respiratory status stable titrate fio2 to sat of 92% renal stable cxr much better might go home with abx Subjective ROS Limited/Unobtainable: No Interval Events: improving Allergies: Coded Allergies: No Known Allergies (Unverified , 07/10/16) Objective Last 24 Hour Vital Signs Date Time Temp Pulse Resp B/P Pulse Ox O2 Delivery O2 Flow Rate FiO2 07/21/16 12:04 98.2 97 20 128/86 97 Room Air 07/21/16 08:44 97 142/95 07/21/16 08:05 97.2 97 20 142/95 97 Room Air 07/21/16 04:00 99.0 98 20 150/100 93 Room Air 07/21/16 00:00 97.9 89 20 134/94 94 Room Air 07/20/16 19:00 97.7 100 20 142/79 97 Room Air 07/20/16 19:00 94 134/96 07/20/16 16:00 97.7 94 20 134/96 97 Room Air Intake and Output 07/20/16 07/21/16 19:00 07:00 Intake Total 1320 ml 120 ml Output Total 1100 ml 700 ml Balance 220 ml -580 ml Intake Oral 720 ml 120 ml IV Total 600 ml Output Urine Total 1100 ml 700 ml # Voids 4 4 General Appearance: WD/WN HEENT: normocephalic, atraumatic Respiratory/Chest: chest wall non-tender, lungs clear Cardiovascular: normal peripheral pulses, normal rate Abdomen: normal bowel sounds, no organomegaly Genitourinary: normal external genitalia Skin: no rash, no lesions Laboratory Tests 07/21/16 05:45: White Blood Count 11.5H, Red Blood Count 4.40L, Hemoglobin 12.7L, Hematocrit 39.4L, Mean Corpuscular Volume 90, Mean Corpuscular Hemoglobin 29.0, Mean Corpuscular Hemoglobin Concent 32.4, Red Cell Distribution Width 12.5, Platelet Count 473H, Mean Platelet Volume 6.1L, Neutrophils (%) (Auto) 71.5, Lymphocytes (%) (Auto) 14.6L, Monocytes (%) (Auto) 9.4, Eosinophils (%) (Auto) 3.3H, Basophils (%) (Auto) 1.3, Sodium Level 144, Potassium Level 4.1, Chloride Level 105, Carbon Dioxide Level 23, Anion Gap 16H, Blood Urea Nitrogen 29H, Creatinine 3.7H, Estimat Glomerular Filtration Rate 20.8, Glucose Level 105, Uric Acid 5.8, Calcium Level 8.9, Phosphorus Level 4.0, Magnesium Level 2.4, Total Bilirubin 0.4, Aspartate Amino Transf (AST/SGOT) 22, Alanine Aminotransferase (ALT/SGPT) 43H, Alkaline Phosphatase 74, Total Protein 7.3, Albumin 3.2L, Globulin 4.1, Albumin/Globulin Ratio 0.7L Current Medications Medications (Trade) Dose Ordered Sig/Brad Route PRN Reason Start Time Stop Time Status Last Admin Dose Admin Acetaminophen (Tylenol) 650 mg Q4H PRN ORAL fever 07/13/16 20:00 08/12/16 19:59 Amlodipine Besylate 5 mg 5 mg BID ORAL 07/18/16 18:00 08/17/16 17:59 07/21/16 08:44 Clindamycin HCl/ Dextrose (Cleocin 600mg) 50 ml @ 100 mls/hr Q8HR IV 07/19/16 11:00 07/26/16 10:59 07/20/16 21:42 Dextrose/Sodium Chloride (D5 0.45% NS) 1,000 ml @ 75 mls/hr [id number] IV 07/21/16 10:33 08/20/16 10:32 07/21/16 12:22 Heparin Sodium (Porcine) (Heparin 5000 units/ml) 5,000 units EVERY 12 HOURS SUBQ 07/13/16 22:00 08/12/16 21:59 07/21/16 08:45 Nitroglycerin (Ntg) 0.4 mg Q5MIN X 3 DOSES PRN SL Prn Chest Pain 07/13/16 18:15 08/12/16 18:14 Ondansetron HCl (Zofran) 4 mg Q6H PRN IVP Nausea & Vomiting 07/13/16 20:00 08/12/16 19:59 Piperacillin Sod/ Tazobactam Sod/ Dextrose (Zosyn/D5W) 55 ml @ 110 mls/hr Q8HR IV 07/17/16 22:00 07/22/16 21:59 07/21/16 05:32 Polyethylene Glycol (Miralax) 17 gm DAILYPRN PRN ORAL Constipation 07/13/16 20:00 08/12/16 19:59 Promethazine HCl/ Codeine (Phenergan with Codeine) 5 ml Q4H PRN ORAL For Cough 07/13/16 20:00 08/12/16 19:59 Ranitidine HCl 150 mg 150 mg BEDTIME ORAL 07/20/16 21:00 08/19/16 20:59 07/20/16 21:42 Tamsulosin HCl 0.4 mg 0.4 mg BEDTIME ORAL 07/17/16 21:00 08/16/16 20:59 07/20/16 21:42 BRINA BRAGG Jul 21, 2016 13:21
[2016-07-21] MEDS ORDERED: D5 1/2NS 1000ml IV ONE (13:25)
[2016-07-21] MEDS ORDERED: Tubing IV Secondary IV ONE (13:25)
--- NOTE | 2016-07-21 16:40 | Infectious Diseases Prog Note ---
Assessment/Plan Problems: (1) CAP (community acquired pneumonia) Assessment & Plan: improving, continue clindamycin , and zosyn for now .will switch to oral once clinically stable to be D/C home , influenza screening is negative , blood culture and sputum culture are negative so far. (2) Sepsis Assessment & Plan: due to pneumonia, continue zosyn , and clindamycin for MRSA coverage, all cultures are negative (3) Asthma Assessment & Plan: continue nebulizers and titrate oxygen to keep O2 sat >90 % (4) Acute respiratory failure Assessment & Plan: due to the above, continue nebulizers, and oxygen , monitor CXR, pulmonary is following (5) Elevated LFTs Assessment & Plan: suspect liver shock, hepatitis panel is negative , monitor LFT, avoid hepatotoxic meds (6) DOMINIC (acute kidney injury) Assessment & Plan: slowly improving, continue IVF for hydration, monitor renal function, nephrology is following . Subjective Constitutional: Denies: anorexia, chills, drenching sweats, fatigue, fever, no symptoms, other Respiratory: Denies: dry cough, no symptoms, other, productive cough, shortness of breath Breasts: Denies: discharge, no symptoms, other, swelling, tenderness Cardiovascular: Denies: chest pain, dyspnea on exertion, no symptoms, other, palpitations Genitourinary: Denies: dysuria, frequency, hematuria, no symptoms, nocturia, other Neurologic: Denies: confusion, headache, no symptoms, numbness, other, weakness Psychiatric: Denies: anxiety, depression, no symptoms, other Skin: Denies: no symptoms, other, rash, ulcer Endocrine: Denies: feels cold, feels warm, no symptoms, other Hematologic: Denies: bleeding, no symptoms, other, swollen lymph nodes Allergies: Coded Allergies: No Known Allergies (Unverified , 07/10/16) Subjective he denied any symptoms. Objective Vital Signs Last 24 Hour Vital Signs Date Time Temp Pulse Resp B/P Pulse Ox O2 Delivery O2 Flow Rate FiO2 07/21/16 16:06 97.7 96 18 143/93 96 Room Air 07/21/16 12:04 98.2 97 20 128/86 97 Room Air 07/21/16 08:44 97 142/95 07/21/16 08:05 97.2 97 20 142/95 97 Room Air 07/21/16 04:00 99.0 98 20 150/100 93 Room Air 07/21/16 00:00 97.9 89 20 134/94 94 Room Air 07/20/16 19:00 97.7 100 20 142/79 97 Room Air 07/20/16 19:00 94 134/96 Height (Feet): 6 Height (Inches): 10.00 Weight (Pounds): 292 General Appearance: WD/WN, no acute distress HEENT: normocephalic, atraumatic, anicteric, mucous membranes moist Respiratory/Chest: chest wall non-tender, lungs clear, normal breath sounds, no respiratory distress, no accessory muscle use, decreased breath sounds, crackles/rales Cardiovascular: normal peripheral pulses, normal rate, regular rhythm, no gallop/murmur, no JVD Abdomen: normal bowel sounds, soft, non tender, no organomegaly, non distended , no mass Extremities: no cyanosis Skin: no rash, no lesions, no ulcers Laboratory Tests Test 07/21/16 05:45 White Blood Count 11.5 K/UL (4.8-10.8) H Red Blood Count 4.40 M/UL (4.70-6.10) L Hemoglobin 12.7 G/DL (14.2-18.0) L Hematocrit 39.4 % (42.0-52.0) L Mean Corpuscular Volume 90 FL (80-99) Mean Corpuscular Hemoglobin 29.0 PG (27.0-31.0) Mean Corpuscular Hemoglobin Concent 32.4 G/DL (32.0-36.0) Red Cell Distribution Width 12.5 % (11.6-14.8) Platelet Count 473 K/UL (150-450) H Mean Platelet Volume 6.1 FL (6.5-10.1) L Neutrophils (%) (Auto) 71.5 % (45.0-75.0) Lymphocytes (%) (Auto) 14.6 % (20.0-45.0) L Monocytes (%) (Auto) 9.4 % (1.0-10.0) Eosinophils (%) (Auto) 3.3 % (0.0-3.0) H Basophils (%) (Auto) 1.3 % (0.0-2.0) Sodium Level 144 mEQ/L (135-145) Potassium Level 4.1 mEQ/L (3.4-4.9) Chloride Level 105 mEQ/L (98-107) Carbon Dioxide Level 23 mEQ/L (20-30) Anion Gap 16 (5-15) H Blood Urea Nitrogen 29 mg/dL (7-23) H Creatinine 3.7 mg/dL (0.7-1.2) H Estimat Glomerular Filtration Rate 20.8 mL/min (>60) Glucose Level 105 mg/dL (74-106) Uric Acid 5.8 mg/dL (3.0-7.5) Calcium Level 8.9 mg/dL (8.6-10.2) Phosphorus Level 4.0 mg/dL (2.5-4.8) Magnesium Level 2.4 mg/dL (1.7-2.5) Total Bilirubin 0.4 mg/dL (0.0-1.2) Aspartate Amino Transf (AST/SGOT) 22 U/L (5-40) Alanine Aminotransferase (ALT/SGPT) 43 U/L (3-41) H Alkaline Phosphatase 74 U/L (40-129) Total Protein 7.3 g/dL (6.6-8.7) Albumin 3.2 g/dL (3.5-5.2) L Globulin 4.1 g/dL Albumin/Globulin Ratio 0.7 (1.0-2.7) L Current Medications Medications (Trade) Dose Ordered Sig/Brad Route PRN Reason Start Time Stop Time Status Last Admin Dose Admin Acetaminophen (Tylenol) 650 mg Q4H PRN ORAL fever 07/13/16 20:00 08/12/16 19:59 Amlodipine Besylate 5 mg 5 mg BID ORAL 07/18/16 18:00 08/17/16 17:59 07/21/16 08:44 Clindamycin HCl/ Dextrose (Cleocin 600mg) 50 ml @ 100 mls/hr Q8HR IV 07/19/16 11:00 07/26/16 10:59 07/21/16 13:50 Dextrose/Sodium Chloride (D5 0.45% NS) 1,000 ml @ 75 mls/hr [id number] IV 07/21/16 10:33 08/20/16 10:32 07/21/16 12:22 Heparin Sodium (Porcine) (Heparin 5000 units/ml) 5,000 units EVERY 12 HOURS SUBQ 07/13/16 22:00 08/12/16 21:59 07/21/16 08:45 Nitroglycerin (Ntg) 0.4 mg Q5MIN X 3 DOSES PRN SL Prn Chest Pain 07/13/16 18:15 08/12/16 18:14 Ondansetron HCl (Zofran) 4 mg Q6H PRN IVP Nausea & Vomiting 07/13/16 20:00 08/12/16 19:59 Piperacillin Sod/ Tazobactam Sod/ Dextrose (Zosyn/D5W) 55 ml @ 110 mls/hr Q8HR IV 07/17/16 22:00 07/22/16 21:59 07/21/16 14:40 Polyethylene Glycol (Miralax) 17 gm DAILYPRN PRN ORAL Constipation 07/13/16 20:00 08/12/16 19:59 Promethazine HCl/ Codeine (Phenergan with Codeine) 5 ml Q4H PRN ORAL For Cough 07/13/16 20:00 08/12/16 19:59 Ranitidine HCl 150 mg 150 mg BEDTIME ORAL 07/20/16 21:00 08/19/16 20:59 07/20/16 21:42 Tamsulosin HCl 0.4 mg 0.4 mg BEDTIME ORAL 07/17/16 21:00 08/16/16 20:59 07/20/16 21:42 Cammy Garcia M.D. Jul 21, 2016 16:40
--- NOTE | 2016-07-21 18:41 | General Progress Note ---
Assessment/Plan Assessment/Plan Assessment - abnormal LFT - resolved - elevated CK / rhabdo - PNA - Sepsis - Azotemia Recommendations - hydration - follow labs - abx - push po - follow LFT Subjective Allergies: Coded Allergies: No Known Allergies (Unverified , 07/10/16) Subjective Feels OK no abdominal pain LFt normalized good PO Objective Last 24 Hour Vital Signs Date Time Temp Pulse Resp B/P Pulse Ox O2 Delivery O2 Flow Rate FiO2 07/21/16 17:23 96 143/93 07/21/16 16:06 97.7 96 18 143/93 96 Room Air 07/21/16 12:04 98.2 97 20 128/86 97 Room Air 07/21/16 08:44 97 142/95 07/21/16 08:05 97.2 97 20 142/95 97 Room Air 07/21/16 04:00 99.0 98 20 150/100 93 Room Air 07/21/16 00:00 97.9 89 20 134/94 94 Room Air 07/20/16 19:00 97.7 100 20 142/79 97 Room Air 07/20/16 19:00 94 134/96 Intake and Output 07/20/16 07/21/16 19:00 07:00 Intake Total 1320 ml 120 ml Output Total 1100 ml 700 ml Balance 220 ml -580 ml Intake Oral 720 ml 120 ml IV Total 600 ml Output Urine Total 1100 ml 700 ml # Voids 4 4 Laboratory Tests 07/21/16 05:45: White Blood Count 11.5H, Red Blood Count 4.40L, Hemoglobin 12.7L, Hematocrit 39.4L, Mean Corpuscular Volume 90, Mean Corpuscular Hemoglobin 29.0, Mean Corpuscular Hemoglobin Concent 32.4, Red Cell Distribution Width 12.5, Platelet Count 473H, Mean Platelet Volume 6.1L, Neutrophils (%) (Auto) 71.5, Lymphocytes (%) (Auto) 14.6L, Monocytes (%) (Auto) 9.4, Eosinophils (%) (Auto) 3.3H, Basophils (%) (Auto) 1.3, Sodium Level 144, Potassium Level 4.1, Chloride Level 105, Carbon Dioxide Level 23, Anion Gap 16H, Blood Urea Nitrogen 29H, Creatinine 3.7H, Estimat Glomerular Filtration Rate 20.8, Glucose Level 105, Uric Acid 5.8, Calcium Level 8.9, Phosphorus Level 4.0, Magnesium Level 2.4, Total Bilirubin 0.4, Aspartate Amino Transf (AST/SGOT) 22, Alanine Aminotransferase (ALT/SGPT) 43H, Alkaline Phosphatase 74, Total Protein 7.3, Albumin 3.2L, Globulin 4.1, Albumin/Globulin Ratio 0.7L Height (Feet): 6 Height (Inches): 10.00 Weight (Pounds): 292 Objective obese AA man NCAT supple CTA RRR soft NT ND no edema MARTA LINARES Jul 21, 2016 18:41
[2016-07-21] MEDS: Tamsulosin 0.4mg cap ORAL SCH (20:41)
[2016-07-22] MEDS: D5 1/2NS 1,000 ML IV SCH ×2 (00:01→13:12)
[2016-07-22 04:00] VITALS: BP 155/94
[2016-07-22] MEDS: Clindamycin 600mg 50 ML IV SCH ×3 (05:14→22:27)
[2016-07-22] MEDS: Zosyn 2.25 gm in D5W 55ml IV SCH ×2 (05:57→13:44)
[2016-07-22 08:08] VITALS: BP 156/100
[2016-07-22] MEDS: Heparin 5000 units/ml inj SUBQ SCH ×2 (08:21→20:57)
--- NOTE | 2016-07-22 11:50 | General Progress Note ---
Assessment/Plan Assessment/Plan ASSESSMENT: 1. Thrombocytosis - presented with thrombocytopenia initially, currently improved 2. Anemia 2/2 chronic disease - mild 3. Pneumonia on abx. zosyn, vanc 4. Leukocytosis - mild, was likely 2/2 infection, today has improved 5. Acute respiratory failure - better 6. Transaminitis due to fatty liver 7. Sepsis - on IV abx RECOMMENDATIONS: 1. Monitor counts 2. Maintain hemoglobin > 7 3. DVT prophylaxis heparin sq 4. GI Prophylaxis as needed 5. Followup on nephro, ID, GI, pulm recs 6. Abx as needed 7. staff Thank you, Marty Johns MD Subjective Constitutional: Reports: no symptoms HEENT: Reports: no symptoms Cardiovascular: Reports: no symptoms Respiratory: Reports: no symptoms Gastrointestinal/Abdominal: Reports: poor appetite Genitourinary: Reports: no symptoms Neurologic/Psychiatric: Reports: anxiety Endocrine: Reports: no symptoms Hematologic/Lymphatic: Reports: anemia Allergies: Coded Allergies: No Known Allergies (Unverified , 07/10/16) Subjective stable, no hematochezia, currently not bleeding Objective Last 24 Hour Vital Signs Date Time Temp Pulse Resp B/P Pulse Ox O2 Delivery O2 Flow Rate FiO2 07/22/16 08:19 98 156/100 07/22/16 08:08 97.0 98 16 156/100 97 Room Air 07/22/16 04:00 98.8 90 20 155/94 97 Room Air 07/21/16 23:42 98.7 90 20 154/105 95 Nasal Cannula 2.0 07/21/16 20:00 97.5 91 18 136/85 97 Room Air 07/21/16 17:23 96 143/93 07/21/16 16:06 97.7 96 18 143/93 96 Room Air 07/21/16 12:04 98.2 97 20 128/86 97 Room Air Intake and Output 07/21/16 07/22/16 19:00 07:00 Intake Total 935 ml 1416.25 ml Output Total 2100 ml 2300 ml Balance -1165 ml -883.75 ml Intake Oral 480 ml 570 ml IV Total 455 ml 846.25 ml Output Urine Total 2100 ml 2300 ml # Voids 2 Height (Feet): 6 Height (Inches): 10.00 Weight (Pounds): 292 General Appearance: alert EENT: TMs normal Neck: supple Cardiovascular: regular rhythm Respiratory/Chest: no respiratory distress Extremities: normal range of motion Edema: 1+ Leg (L), 1+ Leg (R) Edema: mild edema Neurologic: no motor/sensory deficits Skin: warm/dry MARTY JOHNS Jul 22, 2016 11:50
--- NOTE | 2016-07-22 11:52 | General Progress Note ---
Assessment/Plan Problem List: (1) Diabetes ICD Codes: E11.9 - Type 2 diabetes mellitus without complications SNOMED: 02232263 (2) Acute respiratory failure ICD Codes: J96.00 - Acute respiratory failure, unspecified whether with hypoxia or hypercapnia SNOMED: 51081049 (3) Elevated LFTs ICD Codes: R94.5 - Abnormal results of liver function studies SNOMED: 905149424 (4) Pneumonia ICD Codes: J18.9 - Pneumonia, unspecified organism SNOMED: 846950406 (5) HTN (hypertension) ICD Codes: I10 - Essential (primary) hypertension SNOMED: 75538035 (6) MARIA FERNANDA (obstructive sleep apnea) ICD Codes: G47.33 - Obstructive sleep apnea (adult) (pediatric) SNOMED: 85968946 (7) CAP (community acquired pneumonia) ICD Codes: J18.9 - Pneumonia, unspecified organism SNOMED: 557286537 Status: progressing Assessment/Plan vitals stable afebrile azotemia stabilized reviewed chart and labs resp insuff sepsis Subjective ROS Limited/Unobtainable: Yes Constitutional: Reports: no symptoms Allergies: Coded Allergies: No Known Allergies (Unverified , 07/10/16) Objective Last 24 Hour Vital Signs Date Time Temp Pulse Resp B/P Pulse Ox O2 Delivery O2 Flow Rate FiO2 07/22/16 08:19 98 156/100 07/22/16 08:08 97.0 98 16 156/100 97 Room Air 07/22/16 04:00 98.8 90 20 155/94 97 Room Air 07/21/16 23:42 98.7 90 20 154/105 95 Nasal Cannula 2.0 07/21/16 20:00 97.5 91 18 136/85 97 Room Air 07/21/16 17:23 96 143/93 07/21/16 16:06 97.7 96 18 143/93 96 Room Air 07/21/16 12:04 98.2 97 20 128/86 97 Room Air Intake and Output 07/21/16 07/22/16 19:00 07:00 Intake Total 935 ml 1416.25 ml Output Total 2100 ml 2300 ml Balance -1165 ml -883.75 ml Intake Oral 480 ml 570 ml IV Total 455 ml 846.25 ml Output Urine Total 2100 ml 2300 ml # Voids 2 Height (Feet): 6 Height (Inches): 10.00 Weight (Pounds): 292 EENT: PERRL/EOMI Neck: supple Cardiovascular: normal rate Respiratory/Chest: lungs clear Abdomen: soft Jamel Vernon MD Jul 22, 2016 11:52
[2016-07-22 12:30] VITALS: BP 148/94
--- NOTE | 2016-07-22 13:10 | General Progress Note ---
Assessment/Plan Status: stable Assessment/Plan Status: acute renal failure ? Nephrotoxics ( Vanco), Low BP , Sepsis HTN Pneumonia Abnormal LFTs, fatty liver Plan: no labs today- Kidney KIMBERLY- negative IV fluid- Stop Vanco- monitor level per orders Monitor renal parameters- urine studies- Subjective ROS Limited/Unobtainable: No Constitutional: Reports: malaise Allergies: Coded Allergies: No Known Allergies (Unverified , 07/10/16) Objective Last 24 Hour Vital Signs Date Time Temp Pulse Resp B/P Pulse Ox O2 Delivery O2 Flow Rate FiO2 07/22/16 08:19 98 156/100 07/22/16 08:08 97.0 98 16 156/100 97 Room Air 07/22/16 04:00 98.8 90 20 155/94 97 Room Air 07/21/16 23:42 98.7 90 20 154/105 95 Nasal Cannula 2.0 07/21/16 20:00 97.5 91 18 136/85 97 Room Air 07/21/16 17:23 96 143/93 07/21/16 16:06 97.7 96 18 143/93 96 Room Air Intake and Output 07/21/16 07/22/16 19:00 07:00 Intake Total 935 ml 1416.25 ml Output Total 2100 ml 2300 ml Balance -1165 ml -883.75 ml Intake Oral 480 ml 570 ml IV Total 455 ml 846.25 ml Output Urine Total 2100 ml 2300 ml # Voids 2 Height (Feet): 6 Height (Inches): 10.00 Weight (Pounds): 292 General Appearance: no apparent distress Objective no change in PE JULIO CÉSAR CHANG Jul 22, 2016 13:10
--- NOTE | 2016-07-22 13:25 | Pulmonology Progress Note ---
Assessment/Plan Problems: (1) Acute respiratory failure Assessment & Plan: improved (2) Pneumonia (3) Sepsis (4) ATN (acute tubular necrosis) (5) Elevated LFTs Assessment/Plan might go home with oral antibiotics titrate fio2 to sat of 92% renal stable cxr much better might go home with abx Subjective ROS Limited/Unobtainable: No Constitutional: Reports: no symptoms HEENT: Repors: no symptoms Respiratory: Reports: no symptoms Allergies: Coded Allergies: No Known Allergies (Unverified , 07/10/16) Objective Last 24 Hour Vital Signs Date Time Temp Pulse Resp B/P Pulse Ox O2 Delivery O2 Flow Rate FiO2 07/22/16 12:30 98.2 84 15 148/94 97 Room Air 07/22/16 08:19 98 156/100 07/22/16 08:08 97.0 98 16 156/100 97 Room Air 07/22/16 04:00 98.8 90 20 155/94 97 Room Air 07/21/16 23:42 98.7 90 20 154/105 95 Nasal Cannula 2.0 07/21/16 20:00 97.5 91 18 136/85 97 Room Air 07/21/16 17:23 96 143/93 07/21/16 16:06 97.7 96 18 143/93 96 Room Air Intake and Output 07/21/16 07/22/16 19:00 07:00 Intake Total 935 ml 1416.25 ml Output Total 2100 ml 2300 ml Balance -1165 ml -883.75 ml Intake Oral 480 ml 570 ml IV Total 455 ml 846.25 ml Output Urine Total 2100 ml 2300 ml # Voids 2 General Appearance: WD/WN HEENT: normocephalic Respiratory/Chest: chest wall non-tender, lungs clear Cardiovascular: normal peripheral pulses, regular rhythm Abdomen: normal bowel sounds, soft, non tender Genitourinary: normal external genitalia Extremities: no cyanosis, no clubbing Current Medications Medications (Trade) Dose Ordered Sig/Brad Route PRN Reason Start Time Stop Time Status Last Admin Dose Admin Acetaminophen (Tylenol) 650 mg Q4H PRN ORAL fever 07/13/16 20:00 08/12/16 19:59 Amlodipine Besylate 5 mg 5 mg BID ORAL 07/18/16 18:00 08/17/16 17:59 07/22/16 08:19 Clindamycin HCl/ Dextrose (Cleocin 600mg) 50 ml @ 100 mls/hr Q8HR IV 07/19/16 11:00 07/26/16 10:59 07/22/16 13:12 Dextrose/Sodium Chloride (D5 0.45% NS) 1,000 ml @ 75 mls/hr [id number] IV 07/21/16 10:33 08/20/16 10:32 07/22/16 13:12 Heparin Sodium (Porcine) (Heparin 5000 units/ml) 5,000 units EVERY 12 HOURS SUBQ 07/13/16 22:00 08/12/16 21:59 07/22/16 08:21 Nitroglycerin (Ntg) 0.4 mg Q5MIN X 3 DOSES PRN SL Prn Chest Pain 07/13/16 18:15 08/12/16 18:14 Ondansetron HCl (Zofran) 4 mg Q6H PRN IVP Nausea & Vomiting 07/13/16 20:00 08/12/16 19:59 Piperacillin Sod/ Tazobactam Sod/ Dextrose (Zosyn/D5W) 55 ml @ 110 mls/hr Q8HR IV 07/17/16 22:00 07/22/16 21:59 07/22/16 05:57 Polyethylene Glycol (Miralax) 17 gm DAILYPRN PRN ORAL Constipation 07/13/16 20:00 08/12/16 19:59 Promethazine HCl/ Codeine (Phenergan with Codeine) 5 ml Q4H PRN ORAL For Cough 07/13/16 20:00 08/12/16 19:59 Ranitidine HCl 150 mg 150 mg BEDTIME ORAL 07/20/16 21:00 08/19/16 20:59 07/21/16 20:41 Tamsulosin HCl 0.4 mg 0.4 mg BEDTIME ORAL 07/17/16 21:00 08/16/16 20:59 07/21/16 20:41 BRINA BRAGG Jul 22, 2016 13:25
[2016-07-22 16:04] VITALS: BP 152/85
--- NOTE | 2016-07-22 16:54 | General Progress Note ---
Assessment/Plan Assessment/Plan Assessment - abnormal LFT - resolved, possibly fatty Liver - elevated CK / rhabdo - PNA - Sepsis - Azotemia Recommendations - hydration - follow labs - abx - push po - follow LFT Subjective Allergies: Coded Allergies: No Known Allergies (Unverified , 07/10/16) Subjective Feels OK no abdominal pain LFT normalized good PO Objective Last 24 Hour Vital Signs Date Time Temp Pulse Resp B/P Pulse Ox O2 Delivery O2 Flow Rate FiO2 07/22/16 16:04 97.7 107 20 152/85 96 Room Air 07/22/16 12:30 98.2 84 15 148/94 97 Room Air 07/22/16 08:19 98 156/100 07/22/16 08:08 97.0 98 16 156/100 97 Room Air 07/22/16 04:00 98.8 90 20 155/94 97 Room Air 07/21/16 23:42 98.7 90 20 154/105 95 Nasal Cannula 2.0 07/21/16 20:00 97.5 91 18 136/85 97 Room Air 07/21/16 17:23 96 143/93 Intake and Output 07/21/16 07/22/16 19:00 07:00 Intake Total 935 ml 1416.25 ml Output Total 2100 ml 2300 ml Balance -1165 ml -883.75 ml Intake Oral 480 ml 570 ml IV Total 455 ml 846.25 ml Output Urine Total 2100 ml 2300 ml # Voids 2 Height (Feet): 6 Height (Inches): 10.00 Weight (Pounds): 292 Objective obese AA man NCAT supple CTA RRR soft NT ND no edema MARTA LINARES Jul 22, 2016 16:54
[2016-07-22 20:00] VITALS: BP 144/71
[2016-07-22] MEDS: Tamsulosin 0.4mg cap ORAL SCH (20:56)
[2016-07-22 23:50] VITALS: BP 135/90
[2016-07-23] MEDS: D5 1/2NS 1,000 ML IV SCH ×3 (02:33→17:29)
[2016-07-23 04:00] VITALS: BP 141/88
[2016-07-23] MEDS: Clindamycin 600mg 50 ML IV SCH ×3 (05:07→21:35)
[2016-07-23 06:46] LABS: BASOPHILS % (AUTO) 1.3 % (0.0-2.0); EOSINOPHILS % (AUTO) 3.5 % (0.0-3.0); LYMPHOCYTES % (AUTO) 25.1 % (20.0-45.0); MEAN CORPUSCULAR HEMOGLOBIN 30.1 PG (27.0-31.0); MEAN CORPUSCULAR HGB CONC 33.2 G/DL (32.0-36.0); MEAN CORPUSCULAR VOLUME 90 FL (80-99); MEAN PLATELET VOLUME 6.1 FL (6.5-10.1); MONOCYTES % (AUTO) 8.3 % (1.0-10.0); NEUTROPHILS % (AUTO) 61.8 % (45.0-75.0); PLATELET COUNT 426 K/UL (150-450); RED BLOOD COUNT 4.04 M/UL (4.70-6.10); RED CELL DISTRIBUTION WIDTH 12.5 % (11.6-14.8)
[2016-07-23 06:54] LABS: ALBUMIN/GLOBULIN RATIO 0.8 (1.0-2.7); GLOMERULAR FILTRATION RATE 26.5 mL/min (>60); MAGNESIUM 2.1 mg/dL (1.7-2.5); PHOSPHORUS 4.1 mg/dL (2.5-4.8); POTASSIUM 4.1 mEQ/L (3.4-4.9); TOTAL PROTEIN 7.6 g/dL (6.6-8.7); URIC ACID 6.1 mg/dL (3.0-7.5)
[2016-07-23 08:15] VITALS: BP 136/98
[2016-07-23] MEDS: Heparin 5000 units/ml inj SUBQ SCH ×2 (08:43→21:35)
--- NOTE | 2016-07-23 11:39 | General Progress Note ---
Assessment/Plan Problem List: (1) Diabetes ICD Codes: E11.9 - Type 2 diabetes mellitus without complications SNOMED: 83615267 (2) Acute respiratory failure ICD Codes: J96.00 - Acute respiratory failure, unspecified whether with hypoxia or hypercapnia SNOMED: 03179854 (3) Elevated LFTs ICD Codes: R94.5 - Abnormal results of liver function studies SNOMED: 780871848 (4) Pneumonia ICD Codes: J18.9 - Pneumonia, unspecified organism SNOMED: 366416629 (5) HTN (hypertension) ICD Codes: I10 - Essential (primary) hypertension SNOMED: 99893722 (6) MARIA FERNANDA (obstructive sleep apnea) ICD Codes: G47.33 - Obstructive sleep apnea (adult) (pediatric) SNOMED: 40912931 (7) CAP (community acquired pneumonia) ICD Codes: J18.9 - Pneumonia, unspecified organism SNOMED: 642030090 Status: progressing Assessment/Plan afebrile vitals stable azotemia sepsis pna chf htn fluid management per renal Subjective ROS Limited/Unobtainable: Yes Constitutional: Reports: no symptoms Allergies: Coded Allergies: No Known Allergies (Unverified , 07/10/16) Objective Last 24 Hour Vital Signs Date Time Temp Pulse Resp B/P Pulse Ox O2 Delivery O2 Flow Rate FiO2 07/23/16 08:42 95 136/98 07/23/16 08:15 97.9 95 20 136/98 95 Room Air 07/23/16 04:00 97.7 89 20 141/88 97 Nasal Cannula 2.0 07/22/16 23:50 98.8 91 20 135/90 96 Room Air 07/22/16 20:00 97.5 86 18 144/71 96 Room Air 07/22/16 17:09 107 152/85 07/22/16 16:04 97.7 107 20 152/85 96 Room Air 07/22/16 12:30 98.2 84 15 148/94 97 Room Air Intake and Output 07/22/16 07/23/16 19:00 07:00 Intake Total 2225 ml 950 ml Output Total 1800 ml 1600 ml Balance 425 ml -650 ml Intake Oral 1400 ml 200 ml IV Total 825 ml 750 ml Output Urine Total 1800 ml 1600 ml Laboratory Tests 07/23/16 05:50: White Blood Count 8.0, Red Blood Count 4.04L, Hemoglobin 12.2L, Hematocrit 36.6L , Mean Corpuscular Volume 90, Mean Corpuscular Hemoglobin 30.1, Mean Corpuscular Hemoglobin Concent 33.2, Red Cell Distribution Width 12.5, Platelet Count 426, Mean Platelet Volume 6.1L, Neutrophils (%) (Auto) 61.8, Lymphocytes ( %) (Auto) 25.1, Monocytes (%) (Auto) 8.3, Eosinophils (%) (Auto) 3.5H, Basophils (%) (Auto) 1.3, Sodium Level 143, Potassium Level 4.1, Chloride Level 103, Carbon Dioxide Level 24, Anion Gap 16H, Blood Urea Nitrogen 28H, Creatinine 3.0H, Estimat Glomerular Filtration Rate 26.5, Glucose Level 106, Uric Acid 6.1, Calcium Level 9.0, Phosphorus Level 4.1, Magnesium Level 2.1, Total Bilirubin 0.3, Aspartate Amino Transf (AST/SGOT) 18, Alanine Aminotransferase (ALT/SGPT) 34, Alkaline Phosphatase 54, Total Protein 7.6, Albumin 3.5, Globulin 4.1, Albumin/Globulin Ratio 0.8L Height (Feet): 6 Height (Inches): 10.00 Weight (Pounds): 292 EENT: PERRL/EOMI Cardiovascular: normal rate Respiratory/Chest: lungs clear Abdomen: soft Jamel Vernon MD Jul 23, 2016 11:39
[2016-07-23 11:43] VITALS: BP 137/66
--- NOTE | 2016-07-23 11:57 | General Progress Note ---
Assessment/Plan Assessment/Plan Assessment - abnormal LFT - resolved, possibly fatty Liver - elevated CK / rhabdo - PNA - Sepsis - Azotemia Recommendations - hydration - follow labs - abx - push po - follow LFT Subjective Allergies: Coded Allergies: No Known Allergies (Unverified , 07/10/16) Subjective Feels OK no abdominal pain LFT normalized good PO d/w pt re labs Objective Last 24 Hour Vital Signs Date Time Temp Pulse Resp B/P Pulse Ox O2 Delivery O2 Flow Rate FiO2 07/23/16 11:43 97.2 83 21 137/66 95 Room Air 07/23/16 08:42 95 136/98 07/23/16 08:15 97.9 95 20 136/98 95 Room Air 07/23/16 04:00 97.7 89 20 141/88 97 Nasal Cannula 2.0 07/22/16 23:50 98.8 91 20 135/90 96 Room Air 07/22/16 20:00 97.5 86 18 144/71 96 Room Air 07/22/16 17:09 107 152/85 07/22/16 16:04 97.7 107 20 152/85 96 Room Air 07/22/16 12:30 98.2 84 15 148/94 97 Room Air Intake and Output 07/22/16 07/23/16 19:00 07:00 Intake Total 2225 ml 950 ml Output Total 1800 ml 1600 ml Balance 425 ml -650 ml Intake Oral 1400 ml 200 ml IV Total 825 ml 750 ml Output Urine Total 1800 ml 1600 ml Laboratory Tests 07/23/16 05:50: White Blood Count 8.0, Red Blood Count 4.04L, Hemoglobin 12.2L, Hematocrit 36.6L , Mean Corpuscular Volume 90, Mean Corpuscular Hemoglobin 30.1, Mean Corpuscular Hemoglobin Concent 33.2, Red Cell Distribution Width 12.5, Platelet Count 426, Mean Platelet Volume 6.1L, Neutrophils (%) (Auto) 61.8, Lymphocytes ( %) (Auto) 25.1, Monocytes (%) (Auto) 8.3, Eosinophils (%) (Auto) 3.5H, Basophils (%) (Auto) 1.3, Sodium Level 143, Potassium Level 4.1, Chloride Level 103, Carbon Dioxide Level 24, Anion Gap 16H, Blood Urea Nitrogen 28H, Creatinine 3.0H, Estimat Glomerular Filtration Rate 26.5, Glucose Level 106, Uric Acid 6.1, Calcium Level 9.0, Phosphorus Level 4.1, Magnesium Level 2.1, Total Bilirubin 0.3, Aspartate Amino Transf (AST/SGOT) 18, Alanine Aminotransferase (ALT/SGPT) 34, Alkaline Phosphatase 54, Total Protein 7.6, Albumin 3.5, Globulin 4.1, Albumin/Globulin Ratio 0.8L Height (Feet): 6 Height (Inches): 10.00 Weight (Pounds): 292 Objective obese AA man NCAT supple CTA RRR soft NT ND no edema MARTA LINARES Jul 23, 2016 11:57
--- NOTE | 2016-07-23 13:30 | General Progress Note ---
Assessment/Plan Status: stable Status Narrative Cr down 3 Assessment/Plan Status: acute renal failure ? Nephrotoxics ( Vanco), Low BP , Sepsis HTN Pneumonia Abnormal LFTs, fatty liver Plan: Kidney KIMBERLY- negative IV fluid- Stop Vanco- monitor level per orders Monitor renal parameters- urine studies- Subjective ROS Limited/Unobtainable: No Constitutional: Reports: malaise Allergies: Coded Allergies: No Known Allergies (Unverified , 07/10/16) Objective Last 24 Hour Vital Signs Date Time Temp Pulse Resp B/P Pulse Ox O2 Delivery O2 Flow Rate FiO2 07/23/16 11:43 97.2 83 21 137/66 95 Room Air 07/23/16 08:42 95 136/98 07/23/16 08:15 97.9 95 20 136/98 95 Room Air 07/23/16 04:00 97.7 89 20 141/88 97 Nasal Cannula 2.0 07/22/16 23:50 98.8 91 20 135/90 96 Room Air 07/22/16 20:00 97.5 86 18 144/71 96 Room Air 07/22/16 17:09 107 152/85 07/22/16 16:04 97.7 107 20 152/85 96 Room Air Intake and Output 07/22/16 07/23/16 19:00 07:00 Intake Total 2225 ml 950 ml Output Total 1800 ml 1600 ml Balance 425 ml -650 ml Intake Oral 1400 ml 200 ml IV Total 825 ml 750 ml Output Urine Total 1800 ml 1600 ml Laboratory Tests 07/23/16 05:50: White Blood Count 8.0, Red Blood Count 4.04L, Hemoglobin 12.2L, Hematocrit 36.6L , Mean Corpuscular Volume 90, Mean Corpuscular Hemoglobin 30.1, Mean Corpuscular Hemoglobin Concent 33.2, Red Cell Distribution Width 12.5, Platelet Count 426, Mean Platelet Volume 6.1L, Neutrophils (%) (Auto) 61.8, Lymphocytes ( %) (Auto) 25.1, Monocytes (%) (Auto) 8.3, Eosinophils (%) (Auto) 3.5H, Basophils (%) (Auto) 1.3, Sodium Level 143, Potassium Level 4.1, Chloride Level 103, Carbon Dioxide Level 24, Anion Gap 16H, Blood Urea Nitrogen 28H, Creatinine 3.0H, Estimat Glomerular Filtration Rate 26.5, Glucose Level 106, Uric Acid 6.1, Calcium Level 9.0, Phosphorus Level 4.1, Magnesium Level 2.1, Total Bilirubin 0.3, Aspartate Amino Transf (AST/SGOT) 18, Alanine Aminotransferase (ALT/SGPT) 34, Alkaline Phosphatase 54, Total Protein 7.6, Albumin 3.5, Globulin 4.1, Albumin/Globulin Ratio 0.8L Height (Feet): 6 Height (Inches): 10.00 Weight (Pounds): 292 General Appearance: no apparent distress Objective no change in PE JULIO CÉSAR CHANG Jul 23, 2016 13:30
[2016-07-23 16:00] VITALS: BP 145/96
--- NOTE | 2016-07-23 17:43 | Infectious Diseases Prog Note ---
Assessment/Plan Problems: (1) CAP (community acquired pneumonia) Assessment & Plan: improving, continue clindamycin , and zosyn for now .will switch to oral once clinically stable to be D/C home , influenza screening is negative , blood culture and sputum culture are negative so far. (2) Sepsis Assessment & Plan: due to pneumonia, continue zosyn , and clindamycin for MRSA coverage, all cultures are negative (3) Asthma Assessment & Plan: continue nebulizers and titrate oxygen to keep O2 sat >90 % (4) Acute respiratory failure Assessment & Plan: due to the above, continue nebulizers, and oxygen , monitor CXR, pulmonary is following (5) Elevated LFTs Assessment & Plan: suspect liver shock, hepatitis panel is negative , monitor LFT, avoid hepatotoxic meds (6) DOMINIC (acute kidney injury) Assessment & Plan: slowly improving, continue IVF for hydration, monitor renal function, nephrology is following . Subjective Constitutional: Denies: anorexia, chills, drenching sweats, fatigue, fever, no symptoms, other HEENT: Denies: congestion, coryza, dysphagia, hearing change, no symptoms, other, visual change Respiratory: Denies: dry cough, no symptoms, other, productive cough, shortness of breath Breasts: Denies: discharge, no symptoms, other, swelling, tenderness Cardiovascular: Denies: chest pain, dyspnea on exertion, no symptoms, other, palpitations Gastrointestinal/Abdominal: Denies: bloating, blood in stool, constipation, diarrhea, nausea, no symptoms, other, vomiting Genitourinary: Denies: dysuria, frequency, hematuria, no symptoms, nocturia, other Neurologic: Denies: confusion, headache, no symptoms, numbness, other, weakness Psychiatric: Denies: anxiety, depression, no symptoms, other Skin: Denies: no symptoms, other, rash, ulcer Endocrine: Denies: feels cold, feels warm, no symptoms, other Hematologic: Denies: bleeding, no symptoms, other, swollen lymph nodes Allergies: Coded Allergies: No Known Allergies (Unverified , 07/10/16) Subjective he denied any symptoms. Objective Vital Signs Last 24 Hour Vital Signs Date Time Temp Pulse Resp B/P Pulse Ox O2 Delivery O2 Flow Rate FiO2 07/23/16 17:29 96 145/96 07/23/16 16:00 99.5 96 18 145/96 97 Room Air 07/23/16 11:43 97.2 83 21 137/66 95 Room Air 07/23/16 08:42 95 136/98 07/23/16 08:15 97.9 95 20 136/98 95 Room Air 07/23/16 04:00 97.7 89 20 141/88 97 Nasal Cannula 2.0 07/22/16 23:50 98.8 91 20 135/90 96 Room Air 07/22/16 20:00 97.5 86 18 144/71 96 Room Air Height (Feet): 6 Height (Inches): 10.00 Weight (Pounds): 292 General Appearance: WD/WN, no acute distress HEENT: normocephalic, atraumatic, anicteric, mucous membranes moist Respiratory/Chest: chest wall non-tender, normal breath sounds, no respiratory distress, no accessory muscle use, decreased breath sounds, crackles/rales Cardiovascular: normal peripheral pulses, normal rate, regular rhythm, no gallop/murmur, no JVD Abdomen: normal bowel sounds, soft, non tender, no organomegaly, non distended , no mass, no scars Extremities: no cyanosis, no clubbing Skin: no rash, no lesions, no ulcers Laboratory Tests Test 07/23/16 05:50 White Blood Count 8.0 K/UL (4.8-10.8) Red Blood Count 4.04 M/UL (4.70-6.10) L Hemoglobin 12.2 G/DL (14.2-18.0) L Hematocrit 36.6 % (42.0-52.0) L Mean Corpuscular Volume 90 FL (80-99) Mean Corpuscular Hemoglobin 30.1 PG (27.0-31.0) Mean Corpuscular Hemoglobin Concent 33.2 G/DL (32.0-36.0) Red Cell Distribution Width 12.5 % (11.6-14.8) Platelet Count 426 K/UL (150-450) Mean Platelet Volume 6.1 FL (6.5-10.1) L Neutrophils (%) (Auto) 61.8 % (45.0-75.0) Lymphocytes (%) (Auto) 25.1 % (20.0-45.0) Monocytes (%) (Auto) 8.3 % (1.0-10.0) Eosinophils (%) (Auto) 3.5 % (0.0-3.0) H Basophils (%) (Auto) 1.3 % (0.0-2.0) Sodium Level 143 mEQ/L (135-145) Potassium Level 4.1 mEQ/L (3.4-4.9) Chloride Level 103 mEQ/L (98-107) Carbon Dioxide Level 24 mEQ/L (20-30) Anion Gap 16 (5-15) H Blood Urea Nitrogen 28 mg/dL (7-23) H Creatinine 3.0 mg/dL (0.7-1.2) H Estimat Glomerular Filtration Rate 26.5 mL/min (>60) Glucose Level 106 mg/dL (74-106) Uric Acid 6.1 mg/dL (3.0-7.5) Calcium Level 9.0 mg/dL (8.6-10.2) Phosphorus Level 4.1 mg/dL (2.5-4.8) Magnesium Level 2.1 mg/dL (1.7-2.5) Total Bilirubin 0.3 mg/dL (0.0-1.2) Aspartate Amino Transf (AST/SGOT) 18 U/L (5-40) Alanine Aminotransferase (ALT/SGPT) 34 U/L (3-41) Alkaline Phosphatase 54 U/L (40-129) Total Protein 7.6 g/dL (6.6-8.7) Albumin 3.5 g/dL (3.5-5.2) Globulin 4.1 g/dL Albumin/Globulin Ratio 0.8 (1.0-2.7) L Current Medications Medications (Trade) Dose Ordered Sig/Brad Route PRN Reason Start Time Stop Time Status Last Admin Dose Admin Acetaminophen (Tylenol) 650 mg Q4H PRN ORAL fever 07/13/16 20:00 08/12/16 19:59 Amlodipine Besylate 5 mg 5 mg BID ORAL 07/18/16 18:00 08/17/16 17:59 07/23/16 17:29 Clindamycin HCl/ Dextrose (Cleocin 600mg) 50 ml @ 100 mls/hr Q8HR IV 07/19/16 11:00 07/26/16 10:59 07/23/16 13:51 Dextrose/Sodium Chloride (D5 0.45% NS) 1,000 ml @ 75 mls/hr [id number] IV 07/21/16 10:33 08/20/16 10:32 07/23/16 17:29 Heparin Sodium (Porcine) (Heparin 5000 units/ml) 5,000 units EVERY 12 HOURS SUBQ 07/13/16 22:00 08/12/16 21:59 07/23/16 08:43 Nitroglycerin (Ntg) 0.4 mg Q5MIN X 3 DOSES PRN SL Prn Chest Pain 07/13/16 18:15 08/12/16 18:14 Ondansetron HCl (Zofran) 4 mg Q6H PRN IVP Nausea & Vomiting 07/13/16 20:00 08/12/16 19:59 Polyethylene Glycol (Miralax) 17 gm DAILYPRN PRN ORAL Constipation 07/13/16 20:00 08/12/16 19:59 Promethazine HCl/ Codeine (Phenergan with Codeine) 5 ml Q4H PRN ORAL For Cough 07/13/16 20:00 08/12/16 19:59 Ranitidine HCl 150 mg 150 mg BEDTIME ORAL 07/20/16 21:00 08/19/16 20:59 07/22/16 20:56 Tamsulosin HCl (Flomax) 0.4 mg BEDTIME ORAL 07/17/16 21:00 08/16/16 20:59 07/22/16 20:56 Cammy Garcia M.D. Jul 23, 2016 17:43
[2016-07-23 19:00] VITALS: BP 124/85
--- NOTE | 2016-07-23 19:14 | General Progress Note ---
Assessment/Plan Assessment/Plan ASSESSMENT: 1. Thrombocytosis - presented with thrombocytopenia initially, currently improved 2. Anemia 2/2 chronic disease - mild 3. Pneumonia on abx. zosyn, vanc 4. Leukocytosis - mild, was likely 2/2 infection, today has improved 5. Acute respiratory failure - better 6. Transaminitis due to fatty liver 7. Sepsis - on IV abx RECOMMENDATIONS: 1. Monitor counts 2. Maintain hemoglobin > 7 3. DVT prophylaxis heparin sq 4. GI Prophylaxis prn 5. Followup on nephro, ID, GI, pulm recs 6. Abx as needed 7. staff Thank you, River Johns MD Subjective Constitutional: Reports: no symptoms HEENT: Reports: no symptoms Cardiovascular: Reports: no symptoms Respiratory: Reports: no symptoms Gastrointestinal/Abdominal: Reports: no symptoms Genitourinary: Reports: no symptoms Neurologic/Psychiatric: Reports: anxiety Endocrine: Reports: no symptoms Hematologic/Lymphatic: Reports: anemia Allergies: Coded Allergies: No Known Allergies (Unverified , 07/10/16) Subjective is not bleeding, no hematochezia, sleeping comfortably Objective Last 24 Hour Vital Signs Date Time Temp Pulse Resp B/P Pulse Ox O2 Delivery O2 Flow Rate FiO2 07/23/16 17:29 96 145/96 07/23/16 16:00 99.5 96 18 145/96 97 Room Air 07/23/16 11:43 97.2 83 21 137/66 95 Room Air 07/23/16 08:42 95 136/98 07/23/16 08:15 97.9 95 20 136/98 95 Room Air 07/23/16 04:00 97.7 89 20 141/88 97 Nasal Cannula 2.0 07/22/16 23:50 98.8 91 20 135/90 96 Room Air 07/22/16 20:00 97.5 86 18 144/71 96 Room Air Intake and Output 07/22/16 07/23/16 19:00 07:00 Intake Total 2225 ml 950 ml Output Total 1800 ml 1600 ml Balance 425 ml -650 ml Intake Oral 1400 ml 200 ml IV Total 825 ml 750 ml Output Urine Total 1800 ml 1600 ml Laboratory Tests 07/23/16 05:50: White Blood Count 8.0, Red Blood Count 4.04L, Hemoglobin 12.2L, Hematocrit 36.6L , Mean Corpuscular Volume 90, Mean Corpuscular Hemoglobin 30.1, Mean Corpuscular Hemoglobin Concent 33.2, Red Cell Distribution Width 12.5, Platelet Count 426, Mean Platelet Volume 6.1L, Neutrophils (%) (Auto) 61.8, Lymphocytes ( %) (Auto) 25.1, Monocytes (%) (Auto) 8.3, Eosinophils (%) (Auto) 3.5H, Basophils (%) (Auto) 1.3, Sodium Level 143, Potassium Level 4.1, Chloride Level 103, Carbon Dioxide Level 24, Anion Gap 16H, Blood Urea Nitrogen 28H, Creatinine 3.0H, Estimat Glomerular Filtration Rate 26.5, Glucose Level 106, Uric Acid 6.1, Calcium Level 9.0, Phosphorus Level 4.1, Magnesium Level 2.1, Total Bilirubin 0.3, Aspartate Amino Transf (AST/SGOT) 18, Alanine Aminotransferase (ALT/SGPT) 34, Alkaline Phosphatase 54, Total Protein 7.6, Albumin 3.5, Globulin 4.1, Albumin/Globulin Ratio 0.8L Height (Feet): 6 Height (Inches): 10.00 Weight (Pounds): 292 General Appearance: no apparent distress EENT: TMs normal Neck: non-tender Cardiovascular: regular rhythm Respiratory/Chest: lungs clear Abdomen: non tender Extremities: non-tender Edema: 1+ Leg (L), 1+ Leg (R) Edema: mild edema Neurologic: no motor/sensory deficits Skin: warm/dry River Johns Jul 23, 2016 19:14
[2016-07-23] MEDS: Tamsulosin 0.4mg cap ORAL SCH (21:35)
[2016-07-23] MEDS: Zosyn 2.25 gm in D5W 55ml IV SCH (22:41)
[2016-07-24] VITALS: BP 119/69
[2016-07-24 03:55] VITALS: BP 137/90
[2016-07-24] MEDS: Clindamycin 600mg 50 ML IV SCH ×2 (05:30→13:48)
[2016-07-24] MEDS: D5 1/2NS 1,000 ML IV SCH (05:30)
[2016-07-24] MEDS: Zosyn 2.25 gm in D5W 55ml IV SCH ×2 (06:30→14:00)
[2016-07-24 08:00] VITALS: BP 130/86
[2016-07-24] MEDS: Heparin 5000 units/ml inj SUBQ SCH (08:55)
[2016-07-24 09:35] LABS: ALBUMIN/GLOBULIN RATIO 0.7 (1.0-2.7); CALCIUM 9.2 mg/dL (8.6-10.2); CREATININE 2.7 mg/dL (0.7-1.2); GLOMERULAR FILTRATION RATE 29.9 mL/min (>60); PHOSPHORUS 3.4 mg/dL (2.5-4.8); POTASSIUM 4.2 mEQ/L (3.4-4.9); TOTAL PROTEIN 7.7 g/dL (6.6-8.7)
[2016-07-24] MEDS ORDERED: NORVASC10 MG ORAL (11:43)
[2016-07-24 12:00] VITALS: BP 139/92
--- NOTE | 2016-07-24 12:51 | General Progress Note ---
Assessment/Plan Problem List: (1) Diabetes ICD Codes: E11.9 - Type 2 diabetes mellitus without complications SNOMED: 76744209 (2) Acute respiratory failure ICD Codes: J96.00 - Acute respiratory failure, unspecified whether with hypoxia or hypercapnia SNOMED: 44767048 (3) Elevated LFTs ICD Codes: R94.5 - Abnormal results of liver function studies SNOMED: 562563527 (4) Pneumonia ICD Codes: J18.9 - Pneumonia, unspecified organism SNOMED: 485909762 (5) HTN (hypertension) ICD Codes: I10 - Essential (primary) hypertension SNOMED: 66829403 (6) MARIA FERNANDA (obstructive sleep apnea) ICD Codes: G47.33 - Obstructive sleep apnea (adult) (pediatric) SNOMED: 91265173 (7) CAP (community acquired pneumonia) ICD Codes: J18.9 - Pneumonia, unspecified organism SNOMED: 732753555 Status: progressing Assessment/Plan renal for fluid management per renal azotemia resp insuff no wheezing afebrile reviewed chart and labs Subjective ROS Limited/Unobtainable: Yes Constitutional: Reports: no symptoms Allergies: Coded Allergies: No Known Allergies (Unverified , 07/10/16) Objective Last 24 Hour Vital Signs Date Time Temp Pulse Resp B/P Pulse Ox O2 Delivery O2 Flow Rate FiO2 07/24/16 08:54 91 130/86 07/24/16 08:00 97.7 91 18 130/86 96 Room Air 07/24/16 03:55 97.9 79 20 137/90 99 Room Air 07/24/16 00:00 98.2 102 20 119/69 98 Room Air 07/23/16 19:00 97.5 98 20 124/85 96 Room Air 07/23/16 17:29 96 145/96 07/23/16 16:00 99.5 96 18 145/96 97 Room Air Intake and Output 07/23/16 07/24/16 19:00 07:00 Intake Total 1095 ml 1470 ml Output Total 2100 ml 650 ml Balance -1005 ml 820 ml Intake Oral 720 ml 660 ml IV Total 375 ml 810 ml Output Urine Total 2100 ml 650 ml # Voids 7 8 Laboratory Tests 07/24/16 08:35: Sodium Level 143, Potassium Level 4.2, Chloride Level 104, Carbon Dioxide Level 23, Anion Gap 16H, Blood Urea Nitrogen 25H, Creatinine 2.7H, Estimat Glomerular Filtration Rate 29.9, Glucose Level 106, Calcium Level 9.2, Phosphorus Level 3.4 , Total Bilirubin 0.4, Aspartate Amino Transf (AST/SGOT) 23, Alanine Aminotransferase (ALT/SGPT) 41, Alkaline Phosphatase 55, Total Protein 7.7, Albumin 3.4L, Globulin 4.3, Albumin/Globulin Ratio 0.7L Height (Feet): 6 Height (Inches): 10.00 Weight (Pounds): 292 Neck: supple Cardiovascular: normal rate Respiratory/Chest: lungs clear Jamel Vernon MD Jul 24, 2016 12:51
--- NOTE | 2016-07-24 13:27 | General Progress Note ---
Assessment/Plan Status: stable Status Narrative Cr down to 2.7 Assessment/Plan Status: acute renal failure ? Nephrotoxics ( Vanco), Low BP , Sepsis HTN Pneumonia Abnormal LFTs, fatty liver Plan: Kidney KIMBERLY- negative IV fluid- Stop Vanco- monitor level per orders Monitor renal parameters- urine studies- Subjective ROS Limited/Unobtainable: No Allergies: Coded Allergies: No Known Allergies (Unverified , 07/10/16) Objective Last 24 Hour Vital Signs Date Time Temp Pulse Resp B/P Pulse Ox O2 Delivery O2 Flow Rate FiO2 07/24/16 12:00 97.0 82 18 139/92 95 Room Air 07/24/16 08:54 91 130/86 07/24/16 08:00 97.7 91 18 130/86 96 Room Air 07/24/16 03:55 97.9 79 20 137/90 99 Room Air 07/24/16 00:00 98.2 102 20 119/69 98 Room Air 07/23/16 19:00 97.5 98 20 124/85 96 Room Air 07/23/16 17:29 96 145/96 07/23/16 16:00 99.5 96 18 145/96 97 Room Air Intake and Output 07/23/16 07/24/16 19:00 07:00 Intake Total 1095 ml 1525 ml Output Total 2100 ml 650 ml Balance -1005 ml 875 ml Intake Oral 720 ml 660 ml IV Total 375 ml 865 ml Output Urine Total 2100 ml 650 ml # Voids 7 8 Laboratory Tests 07/24/16 08:35: Sodium Level 143, Potassium Level 4.2, Chloride Level 104, Carbon Dioxide Level 23, Anion Gap 16H, Blood Urea Nitrogen 25H, Creatinine 2.7H, Estimat Glomerular Filtration Rate 29.9, Glucose Level 106, Calcium Level 9.2, Phosphorus Level 3.4 , Total Bilirubin 0.4, Aspartate Amino Transf (AST/SGOT) 23, Alanine Aminotransferase (ALT/SGPT) 41, Alkaline Phosphatase 55, Total Protein 7.7, Albumin 3.4L, Globulin 4.3, Albumin/Globulin Ratio 0.7L Height (Feet): 6 Height (Inches): 10.00 Weight (Pounds): 292 General Appearance: no apparent distress Objective no change in PE JULIO CÉSAR CHANG Jul 24, 2016 13:27
[2016-07-24] MEDS ORDERED: D5 1/2NS 1000ml IV ONE ×2 (14:39)
--- NOTE | 2016-07-24 16:19 | Infectious Diseases Prog Note ---
Assessment/Plan Problems: (1) CAP (community acquired pneumonia) Assessment & Plan: improving, received 14 days of antibiotics, will D/C today. influenza screening is negative , blood culture and sputum culture are negative so far. (2) Sepsis Assessment & Plan: due to pneumonia, improved on zosyn , and clindamycin , his cultures are negative (3) Asthma Assessment & Plan: continue nebulizers and titrate oxygen to keep O2 sat >90 % (4) Acute respiratory failure Assessment & Plan: improved, due to the above, continue nebulizers, and oxygen , monitor CXR, pulmonary is following (5) Elevated LFTs Assessment & Plan: suspect liver shock, hepatitis panel is negative , monitor LFT, avoid hepatotoxic meds (6) DOMINIC (acute kidney injury) Assessment & Plan: improving, encourage hydration, monitor renal function as an outpatient, avoid ARLET inhibitors , follow up with PCP Subjective Constitutional: Denies: anorexia, chills, drenching sweats, fatigue, fever, no symptoms, other HEENT: Denies: congestion, coryza, dysphagia, hearing change, no symptoms, other, visual change Respiratory: Denies: dry cough, no symptoms, other, productive cough, shortness of breath Breasts: Denies: discharge, no symptoms, other, swelling, tenderness Cardiovascular: Denies: chest pain, dyspnea on exertion, no symptoms, other, palpitations Gastrointestinal/Abdominal: Denies: bloating, blood in stool, constipation, diarrhea, nausea, no symptoms, other, vomiting Genitourinary: Denies: dysuria, frequency, hematuria, no symptoms, nocturia, other Neurologic: Denies: confusion, headache, no symptoms, numbness, other, weakness Psychiatric: Denies: anxiety, depression, no symptoms, other Skin: Denies: no symptoms, other, rash, ulcer Endocrine: Denies: feels cold, feels warm, no symptoms, other Hematologic: Denies: bleeding, no symptoms, other, swollen lymph nodes Allergies: Coded Allergies: No Known Allergies (Unverified , 07/10/16) Subjective he was doing well, up in bed, denied any symptoms. Objective Vital Signs Last 24 Hour Vital Signs Date Time Temp Pulse Resp B/P Pulse Ox O2 Delivery O2 Flow Rate FiO2 07/24/16 12:00 97.0 82 18 139/92 95 Room Air 1/31/17 08:54 91 130/86 07/24/16 08:00 97.7 91 18 130/86 96 Room Air 07/24/16 03:55 97.9 79 20 137/90 99 Room Air 07/24/16 00:00 98.2 102 20 119/69 98 Room Air 07/23/16 19:00 97.5 98 20 124/85 96 Room Air 07/23/16 17:29 96 145/96 Height (Feet): 6 Height (Inches): 10.00 Weight (Pounds): 292 General Appearance: WD/WN, no acute distress HEENT: normocephalic, atraumatic, anicteric, mucous membranes moist Respiratory/Chest: chest wall non-tender, lungs clear, normal breath sounds, no respiratory distress, no accessory muscle use Cardiovascular: normal peripheral pulses, normal rate, regular rhythm, no gallop/murmur, no JVD Abdomen: normal bowel sounds, soft, non tender, no organomegaly, non distended , no mass, no scars Extremities: no cyanosis, no clubbing Skin: no rash, no lesions, no ulcers Laboratory Tests Test 07/24/16 08:35 Sodium Level 143 mEQ/L (135-145) Potassium Level 4.2 mEQ/L (3.4-4.9) Chloride Level 104 mEQ/L (98-107) Carbon Dioxide Level 23 mEQ/L (20-30) Anion Gap 16 (5-15) H Blood Urea Nitrogen 25 mg/dL (7-23) H Creatinine 2.7 mg/dL (0.7-1.2) H Estimat Glomerular Filtration Rate 29.9 mL/min (>60) Glucose Level 106 mg/dL (74-106) Calcium Level 9.2 mg/dL (8.6-10.2) Phosphorus Level 3.4 mg/dL (2.5-4.8) Total Bilirubin 0.4 mg/dL (0.0-1.2) Aspartate Amino Transf (AST/SGOT) 23 U/L (5-40) Alanine Aminotransferase (ALT/SGPT) 41 U/L (3-41) Alkaline Phosphatase 55 U/L (40-129) Total Protein 7.7 g/dL (6.6-8.7) Albumin 3.4 g/dL (3.5-5.2) L Globulin 4.3 g/dL Albumin/Globulin Ratio 0.7 (1.0-2.7) L Current Medications Medications (Trade) Dose Ordered Sig/Brad Route PRN Reason Start Time Stop Time Status Last Admin Dose Admin Acetaminophen (Tylenol) 650 mg Q4H PRN ORAL fever 07/13/16 20:00 08/12/16 19:59 Amlodipine Besylate 5 mg 5 mg BID ORAL 07/18/16 18:00 08/17/16 17:59 07/24/16 08:54 Clindamycin HCl/ Dextrose (Cleocin 600mg) 50 ml @ 100 mls/hr Q8HR IV 07/19/16 11:00 07/26/16 10:59 07/24/16 13:48 Dextrose/Sodium Chloride 1,000 ml @ 75 mls/hr [id number] IV 07/21/16 10:33 08/20/16 10:32 07/24/16 05:30 Heparin Sodium (Porcine) (Heparin 5000 units/ml) 5,000 units EVERY 12 HOURS SUBQ 07/13/16 22:00 08/12/16 21:59 07/24/16 08:55 Nitroglycerin (Ntg) 0.4 mg Q5MIN X 3 DOSES PRN SL Prn Chest Pain 07/13/16 18:15 08/12/16 18:14 Ondansetron HCl (Zofran) 4 mg Q6H PRN IVP Nausea & Vomiting 07/13/16 20:00 08/12/16 19:59 Piperacillin Sod/ Tazobactam Sod/ Dextrose (Zosyn/D5W) 55 ml @ 110 mls/hr Q8HR IV 07/23/16 22:00 07/30/16 21:59 07/24/16 06:30 Polyethylene Glycol (Miralax) 17 gm DAILYPRN PRN ORAL Constipation 07/13/16 20:00 08/12/16 19:59 Promethazine HCl/ Codeine (Phenergan with Codeine) 5 ml Q4H PRN ORAL For Cough 07/13/16 20:00 08/12/16 19:59 Ranitidine HCl 150 mg 150 mg BEDTIME ORAL 07/20/16 21:00 08/19/16 20:59 07/23/16 21:35 Tamsulosin HCl (Flomax) 0.4 mg BEDTIME ORAL 07/17/16 21:00 08/16/16 20:59 07/23/16 21:35 Cammy Garcia M.D. Jul 24, 2016 16:19
--- NOTE | 2016-07-24 20:40 | General Progress Note ---
Assessment/Plan Assessment/Plan ASSESSMENT: 1. Thrombocytosis - presented with thrombocytopenia initially, currently improved 2. Anemia 2/2 chronic disease - mild 3. Pneumonia on abx. zosyn, vanc 4. Leukocytosis - mild, was likely 2/2 infection, today has improved 5. Acute respiratory failure - better 6. Transaminitis due to fatty liver 7. Sepsis - on IV abx RECOMMENDATIONS: 1. Monitor counts 2. Maintain hemoglobin > 7 3. DVT prophylaxis heparin sq 4. GI Prophylaxis prn 5. Followup on nephro, ID, GI, pulm recs 6. Abx as needed 7. staff Thank you, River Johns MD Subjective Constitutional: Reports: no symptoms HEENT: Reports: no symptoms Cardiovascular: Reports: no symptoms Respiratory: Reports: no symptoms Gastrointestinal/Abdominal: Reports: poor appetite Genitourinary: Reports: no symptoms Neurologic/Psychiatric: Reports: no symptoms Endocrine: Reports: no symptoms Hematologic/Lymphatic: Reports: anemia Allergies: Coded Allergies: No Known Allergies (Unverified , 07/10/16) Subjective not bleeding, no hematochezia, is sleeping comfortably Objective Last 24 Hour Vital Signs Date Time Temp Pulse Resp B/P Pulse Ox O2 Delivery O2 Flow Rate FiO2 07/24/16 12:00 97.0 82 18 139/92 95 Room Air 07/24/16 08:54 91 130/86 07/24/16 08:00 97.7 91 18 130/86 96 Room Air 07/24/16 03:55 97.9 79 20 137/90 99 Room Air 07/24/16 00:00 98.2 102 20 119/69 98 Room Air Intake and Output 07/23/16 07/24/16 19:00 07:00 Intake Total 1095 ml 1525 ml Output Total 2100 ml 650 ml Balance -1005 ml 875 ml Intake Oral 720 ml 660 ml IV Total 375 ml 865 ml Output Urine Total 2100 ml 650 ml # Voids 7 8 Laboratory Tests 07/24/16 08:35: Sodium Level 143, Potassium Level 4.2, Chloride Level 104, Carbon Dioxide Level 23, Anion Gap 16H, Blood Urea Nitrogen 25H, Creatinine 2.7H, Estimat Glomerular Filtration Rate 29.9, Glucose Level 106, Calcium Level 9.2, Phosphorus Level 3.4 , Total Bilirubin 0.4, Aspartate Amino Transf (AST/SGOT) 23, Alanine Aminotransferase (ALT/SGPT) 41, Alkaline Phosphatase 55, Total Protein 7.7, Albumin 3.4L, Globulin 4.3, Albumin/Globulin Ratio 0.7L Height (Feet): 6 Height (Inches): 10.00 Weight (Pounds): 292 General Appearance: no apparent distress EENT: TMs normal Neck: supple Cardiovascular: normal rate Respiratory/Chest: lungs clear Abdomen: no organomegaly Extremities: non-tender Edema: 1+ Leg (L), 1+ Leg (R) Edema: mild edema Neurologic: alert Skin: warm/dry River Johns Jul 24, 2016 20:40
--- NOTE | 2016-07-26 09:38 | Discharge Summary 2 SIG ---
DATE OF ADMISSION: 07/10/2016 DATE OF DISCHARGE: 07/24/2016 CONSULTANTS: 1. Peter Kennedy M.D. 2. Artie Johns M.D. 3. Balbina Carlin M.D. 4. Cammy Garcia M.D. 5. Oskar Villafuerte M.D. BRIEF HOSPITAL COURSE: The patient is a 56-year-old male, who presented to ED after increased cough and difficulty breathing. The patient had gradual onset of symptoms. He has history of sleep apnea and was noted subjective fever and chills. On evaluation at ED, chest x-ray showed prominent infiltrates with normal cardiac size. He was given antipyretics, IV fluids, and IV antibiotics. He was also noted to have elevated CPK and leukocytosis. Dr. Garcia was consulted for antibiotic management and was started empirically on Zosyn and vancomycin. Dr. Villafuerte was consulted. The patient had acute respiratory failure, but required a BiPAP. Dr. Johns was consulted for evaluation of thrombocytopenia and anemia. Thrombocytopenia was getting worse most likely secondary to underlying infection. He had elevated liver function tests, liver enzymes, and hepatitis was negative. Hepatitis panel was negative. Abdominal ultrasound showed hepatomegaly with fatty infiltration. Sputum culture sent was negative. Dr. Kennedy was consulted, as the patient had an elevated creatinine on admission, which normalized and eventually rk to 3.2. Vancomycin was discontinued. He was given IV fluids. Renal ultrasound was negative. Liver function tests were eventually normalized. Thrombocytosis improved. Anemia was mild and was secondary to chronic disease. Repeat chest x-ray was better and was saturating well on room air. He received 14 days of IV antibiotics. Influenza screen, blood culture and sputum were negative. The patient was eventually discharged home. FINAL DIAGNOSES: 1. Acute respiratory failure requiring BiPAP, resolved. 2. Community-acquired pneumonia. 3. Acute renal failure. 4. Elevated liver transaminases secondary to fatty liver. 5. Sepsis due to pneumonia. 6. Obstructive sleep apnea. 7. Accelerated hypertension. 8. Diabetes mellitus. 9. Thrombocytosis secondary to infection. 10. Pneumonia secondary to chronic disease. 11. Elevated CK/rhabdomyolysis. Jamel Vernon M.D. I have been assigned to dictate discharge summary on this account and I was not involved in the patient's management. Laurel Talamantes N.P. DR: SEAN JOB#: [id number] CC: ALICIA
--- NOTE | 2016-08-07 15:19 | Cardiology Report ---
APPROVED REPORT EKG Measurement Heart [id number] Sinus tachycardia Possible Left atrial enlargement Borderline ECG
== END 2016-07-24 14:40 | disposition home or self-care (01) | DRG 871 ==
LOC: ENRESERVDT → ENRESERVTM → EMR 18:21 → 2E 19:47 → EDBEDREQ 20:30 → 4E 07-13 18:09
DX: A41.9 Sepsis, unspecified organism (principal); J96.00 Acute respiratory failure, unspecified whether with hypoxia or hypercapnia; N17.0 Acute kidney failure with tubular necrosis; J18.9 Pneumonia, unspecified organism; M62.82 Rhabdomyolysis; R65.20 Severe sepsis without septic shock; K76.0 Fatty (change of) liver, not elsewhere classified; D69.6 Thrombocytopenia, unspecified; I10 Essential (primary) hypertension; E11.9 Type 2 diabetes mellitus without complications; D64.9 Anemia, unspecified; J45.909 Unspecified asthma, uncomplicated; G47.33 Obstructive sleep apnea (adult) (pediatric); I25.10 Atherosclerotic heart disease of native coronary artery without angina pectoris
CPT/HCPCS: 36415; 71010; 71250; 76700; 76775; 80048; 80053; 80061; 80069; 80202; 80300; 81001; 81003; 82436; 82533; 82550; 82553; 82977; 83036; 83605; 83735; 83880; 83930; 83935; 84100; 84133; 84300; 84439; 84443; 84481; 84484; 84550; 85007; 85025; 85060; 86140; 86703; 86705; 86708; 86710; 86803; 87040; 87070; 87205; 87340; 89050; 93005; 94640; 94664; 94760; J7620; J8499; S0077